=== PATIENT | female | born 1935 | race Caucasian/White ===

== ENCOUNTER 2017-04-27 12:06 | Inpatient (IN) | payer MEDICARE, OTHER ==
[~2017-04-27] VITALS: Ht 157.5 cm; Wt 62.6 kg
--- NOTE | 2017-04-27 12:09 | ERA ---
ER Documentation Chief Complaint Date/Time DATE: 04/27/17 TIME: 12:08 Chief Complaint Shortness of breath HPI The patient is a 81-year-old female, presenting to the ER because of low O2 saturation and high glucose from the [place] [facility]. She normally uses 2 L nasal cannula according to the church history professor. She is unable to provide history, the history is obtained from the church history professor in medical record. She has been on vancomycin IV and Zosyn IV since April 24, 2017 and was recently discharged from [facility]. She is a DO NOT RESUSCITATE Past medical history: Hypertension, dyslipidemia, history of breast cancer, history of CVA with right hemiparesis, seizure disorder, diabetes mellitus Past surgical history: Right breast and right hip ROS All systems reviewed and are negative except as per history of present illness. Medications Home Meds Reported Medications Clopidogrel Bisulfate (Clopidogrel) 75 Mg Tablet, 75 MG PO DAILY, #30 TAB 04/27/17 Exemestane* (Exemestane*) 25 Mg Tablet, 25 MG GTB DAILY, TAB 04/27/17 Levetiracetam* (Keppra*) 500 Mg/5 Ml Solution, 500 MG GTB BID, BOTTLE 04/27/17 Ondansetron Hcl* (Ondansetron Hcl*) 4 Mg Tablet, 4 MG PO Q12 Y for NAUSEA AND/ OR VOMITING, TAB 04/27/17 Atorvastatin* (Atorvastatin*) 40 Mg Tablet, 40 MG GTB QHS, #30 TAB 04/27/17 Cran/Vitc/Mannose/Inulin/Brom (Uti-Stat Liquid) 3,875 Mg/30 Ml Liquid, 30 ML GTB DAILY 04/27/17 Allergies Allergies: Coded Allergies: No Known Allergy (Unverified , 04/27/17) Physical Exam Vitals Vital Signs Date Time Temp Pulse Resp B/P Pulse Ox O2 Delivery O2 Flow Rate FiO2 04/27/17 12:35 Non Rebreather 15.0 04/27/17 12:35 Non Rebreather 15 04/27/17 12:22 99.8 115 24 174/97 100 Physical Exam Const: acute Respiratory distress. Head: Atraumatic. Eyes: Normal Conjunctiva. ENT: Normal External Ears, Nose and Mouth. Neck: Full range of motion. No meningismus. Resp: Clear to auscultation bilaterally.Tachypneic Cardio: Regular rate and rhythm.Tachycardic Abd: Soft, non distended, normal bowel sounds, non tender.G-tube Skin: No petechiae or rashes. Back: No midline or flank tenderness. Ext: No cyanosis, or edema. Neur: Unable to perform due to her condition Psych: Unable to perform due to her condition Result Diagram: 04/27/17 1230 04/27/17 1230 Results 24 hrs Laboratory Tests Test 04/27/17 12:09 04/27/17 12:17 04/27/17 12:30 04/27/17 12:43 Blood Gas Specimen Source Blood arterial Arterial Blood Date Drawn 04/27/2017 12:28:27 PM Arterial Blood pH (Temp corrected) 7.450 Arterial Blood pCO2 (Temp correct) 49.8mmhg Arterial Blood pO2 (Temp corrected) 164.5mmHG Arterial Blood HCO3 33.8mmol/L Arterial Blood Base Excess 8.4mmol/L Arterial Blood Oxygen Saturation 98.7mmHG Jef Test ACCEPTAB Arterial Blood Gas Puncture Site Right Radial Arterial Blood Carboxyhemoglobin 0.3% Arterial Blood Methemoglobin 0.1% Blood Gas A-a O2 Differential 498.7mmHg Oxyhemoglobin Percent 98.3% Total Hemoglobin 14.3g/dl Blood Gas Temperature 37.0C Blood Gas Modality MASK - NRB FiO2 100.0% Blood Gas Notified Whom [place] Blood Gas Notified Time 04/27/2017 12:32:43 PM Bedside Glucose 466mg/dL White Blood Count 15.510^3/ul Red Blood Count 4.5410^6/ul Hemoglobin 13.4g/dl Hematocrit 43.1% Mean Corpuscular Volume 94.9fl Mean Corpuscular Hemoglobin 29.5pg Mean Corpuscular Hemoglobin Concent 31.1g/dl Red Cell Distribution Width 14.3% Platelet Count 41245^3/UL Mean Platelet Volume 12.2fl Neutrophils % 81.9% Lymphocytes % 11.3% Monocytes % 5.5% Eosinophils % 0.3% Basophils % 0.5% Nucleated Red Blood Cells % 0.0/100WBC Neutrophils # 12.710^3/ul Lymphocytes # 1.810^3/ul Monocytes # 0.910^3/ul Eosinophils # 0.010^3/ul Basophils # 0.110^3/ul Nucleated Red Blood Cells # 0.010^3/ul Prothrombin Time 14.4Sec Prothrombin Time Ratio 1.1 INR International Normalized Ratio 1.12 Activated Partial Thromboplast Time 27.8Sec Sodium Level 159mmol/L Potassium Level 3.8mmol/L Chloride Level 118mmol/L Carbon Dioxide Level 35mmol/L Anion Gap 10 Blood Urea Nitrogen 48mg/dl Creatinine 1.02mg/dl Glucose Level 560mg/dl Lactic Acid Level 2.0mmol/L Calcium Level 9.8mg/dl Phosphorus Level 3.9mg/dl Magnesium Level 2.5mg/dl Total Bilirubin 0.5mg/dl Direct Bilirubin 0.00mg/dl Indirect Bilirubin 0.5mg/dl Aspartate Amino Transf (AST/SGOT) 28IU/L Alanine Aminotransferase (ALT/SGPT) 58IU/L Alkaline Phosphatase 132IU/L Troponin I 0.044ng/ml Total Protein 6.4g/dl Albumin 2.9g/dl Globulin 3.50g/dl Albumin/Globulin Ratio 0.82 Urine Color YELLOW Urine Clarity SLIGHTLY CLOUDY Urine pH 7.0 Urine Specific [place] 1.028 Urine Ketones NEGATIVEmg/dL Urine Nitrite NEGATIVEmg/dL Urine Bilirubin NEGATIVEmg/dL Urine Urobilinogen NEGATIVEmg/dL Urine Leukocyte Esterase 1+Merrick/ul Urine Microscopic RBC 4/HPF Urine Microscopic WBC 16/HPF Urine Hemoglobin NEGATIVEmg/dL Urine Glucose 3+mg/dL Urine Total Protein NEGATIVEmg/dl Test 04/27/17 12:56 Bedside Urine pH (LAB) 7.0 Bedside Urine Protein (LAB) Trace Bedside Urine Glucose (UA) 0.50% Bedside Urine Ketones (LAB) Negative Bedside Urine Blood 1+ Bedside Urine Nitrite (LAB) Negative Bedside Urine Leukocyte Esterase (L Trace Current Medications Medications (Trade) Dose Ordered Sig/Kilo Route PRN Reason Start Time Stop Time Status Last Admin Dose Admin Vancomycin HCl 250 ml @ 125 mls/hr ONCE IVPB 04/27/17 13:00 04/27/17 14:59 04/27/17 13:29 Meropenem/Sodium Chloride 50 ml @ 100 mls/hr ONCE STAT IVPB 04/27/17 12:44 04/27/17 13:13 DC 04/27/17 13:19 Sodium Chloride (NS) 2,170 ml @ 2,170 mls/hr BOLUS X1 ONCE IV 04/27/17 13:30 04/27/17 14:29 04/27/17 13:20 Insulin Human Lispro (Humalog) 16 unit ONCE STAT SC 04/27/17 13:13 04/27/17 13:17 DC 04/27/17 13:34 Procedures/MDM [place] [id number] Radiology Main Line: [phone] DIAGNOSTIC IMAGING REPORT Patient: MERARY HOYOS : 1935 Age: 81 Sex: F MR #: [id number] DOS: 04/27/17 1209 Ordering MD: MARLYS LU MD Location: E/R Room/Bed: PROCEDURE: XR Chest. CLINICAL INDICATION: Sepsis. TECHNIQUE: Single frontal view. COMPARISON: None. FINDINGS: There is mild atelectasis at the lung bases. There are low lung volumes. Heart is enlarged. Surgical clips are present in the right axilla and right upper quadrant of the abdomen. There is no pleural effusion. There is no pneumothorax. There is thoracic scoliosis convex right superiorly and convex left inferiorly. IMPRESSION: 1. Mild atelectasis at the lung bases. 2. Low lung volumes. 3. Cardiomegaly. 4. Prior right axillary and right upper quadrant abdomen surgery. 5. Thoracic scoliosis convex right superiorly and convex left inferiorly. RPTAT: QQ .Devante Newman MD, MD Date Time Electronically viewed and signed by .Devante Newman MD, MD on 04/27/2017 12:44 .R/ CC: MARLYS LU MD EKG: Read by emergency physician Rate/Rhythm: Sinus tachycardia 117 beats/min QRS, ST, T-waves: No ST elevation, no T inversion, LVH Impression: Abnormal EKG ABG on 100%, pH 7.45, PCO2 50, PO2 164 MEDICAL MAKING DECISION: The patient is a 81-year-old female, presenting with acute respiratory failure, acute severe sepsis, acute hypovolemic hyponatremic, acute diabetic hyperglycemia. She was treated with Still catheter, vancomycin IV, meropenem IV, normal saline 30 mL/kg IV for acute severe sepsis and Humalog 16 units subcutaneously for acute diabetic hyperglycemia with good response Admit MDM: Patient's infectious symptoms have not stabilized and the patient is at risk of rapid decompensation. The patient will be admitted for careful hydration, antibiotic therapy, and infectious source control. Severe Sepsis criteria: Infectious source: unknown End organ damage indicated by: Lactate > 2.0 mmol/L Sepsis Management: Time of recognition of severe sepsis/septic shock:13:00 Within 3 hours of recognition: Blood cultures x 2 before broad-spectrum antibiotics: Yes 30 ml/kg NS bolus completed Initial lactate 2 Repeat lactate pending Critical Care: Critical care time 35 minutes excluding billable procedure Emergent fluid management while maintaining close respiratory support. Provision of immediate and broad-spectrum antibiotic therapy. Simultaneous assessment for possible sources in order to direct targeted therapy. Consideration for invasive and chemical support to prevent cardiopulmonary collapse. Septic Shock Assessment: Any lactic acid > 4.0 no Persistent hypotension (SBP < 90 or 40 mmHg drop, MAP < 65) despite 30 mL/kg IV fluid bolusno Departure Diagnosis: Primary Impression: Acute respiratory failure Additional Impressions: Severe sepsis Dehydration with hypernatremia Diabetes mellitus with hyperglycemia Condition: Critical Comments TelI discussed the findings with the patient. I discussed the patient with The on-call hospitalist Dr. Isaac Ryan at 1:30 PM. who was made aware of the lab, the treatment, the patient condition. The patient is admitted to Telemetry MARLYS LU MD Apr 27, 2017 12:09
[2017-04-27 12:33] LABS: AADO2 Arterial 498.7 mmHg (7.0-24.0); Allen Test ACCEPTAB; Arterial Base Excess 8.4 mmol/L (-3.0-3); Arterial COHb 0.3 % (0.0-3.0); Arterial Fraction of Oxyhgb 98.3 % (93.0-99.0); Arterial HCO3 33.8 mmol/L (22.0-26.0); Arterial MetHb 0.1 % (0.0-1.5); Arterial Total Hemglobin 14.3 g/dl (12.0-18.0); MODE MASK - NRB
[2017-04-27 12:41] LABS: BASOPHIL # 0.1 10^3/ul (0.0-0.1); BASOPHILS % 0.5 % (0.0-2.0); EOSINOPHILS % 0.3 % (0.0-7.0); HEMATOCRIT 43.1 % (37.0-47.0); HEMOGLOBIN 13.4 g/dl (12.0-16.0); LYMPHOCYTES # 1.8 10^3/ul (0.8-2.9); LYMPHOCYTES % 11.3 % (15.0-51.0); MEAN CORPUSCULAR HEMOGLOBIN 29.5 pg (29.0-33.0); MEAN CORPUSCULAR HGB CONC 31.1 g/dl (32.0-37.0); MEAN CORPUSCULAR VOLUME 94.9 fl (82.0-101.0); MEAN PLATELET VOLUME 12.2 fl (7.4-10.4); MONOCYTE # 0.9 10^3/ul (0.3-0.9); MONOCYTES % 5.5 % (0.0-11.0); NEUTROPHIL # 12.7 10^3/ul (1.6-7.5); NEUTROPHILS % 81.9 % (39.0-77.0); PLATELET COUNT 292 10^3/UL (140-415); RED BLOOD COUNT 4.54 10^6/ul (4.20-5.40); RED CELL DISTRIBUTION WIDTH 14.3 % (11.5-14.5); WHITE BLOOD COUNT 15.5 10^3/ul (4.8-10.8)
[2017-04-27] MEDS ORDERED: MEROPENEM 500MG/50 ML (PMX) 50 ML IVPB STA (12:44)
--- NOTE | 2017-04-27 12:44 | RADRPT ---
PROCEDURE: XR Chest. CLINICAL INDICATION: Sepsis. TECHNIQUE: Single frontal view. COMPARISON: None. FINDINGS: There is mild atelectasis at the lung bases. There are low lung volumes. Heart is enlarged. Surgical clips are present in the right axilla and right upper quadrant of the ab domen. There is no pleural effusion. There is no pneumothorax. There is thoracic scoliosis convex right superiorly and convex left inferiorly. IMPRESSION: 1. Mild atelectasis at the lung bases. 2. Low lung volumes. 3. Cardiomegaly. 4. Prior right axillary and right upper quadrant abdomen surgery. 5. Thoracic scoliosis convex right superiorly and convex left inferiorly. RPTAT: QQ .Devante Newman MD, MD Date Time Electronically viewed and signed by .Devante Newman MD, on 04/27/2017 12:44 .R/
[2017-04-27 12:48] LABS: URINE BLOOD (Dip) POC 1+ (NEGATIVE)
[2017-04-27] MEDS ORDERED: CRAN3875 GTB (12:54)
[2017-04-27] MEDS ORDERED: ATOR40TA68 GTB (12:55)
[2017-04-27] MEDS ORDERED: ONDA4TAB95 PO (12:55)
[2017-04-27 12:57] LABS: INR 1.12; PROTIME 14.4 Sec (12.2-14.2); PT RATIO 1.1
[2017-04-27 12:58] LABS: PARTIAL THROMBOPLASTIN TIME 27.8 Sec (25.0-35.0)
[2017-04-27 12:59] LABS: ALBUMIN 2.9 g/dl (3.3-4.9); ALBUMIN/GLOBULIN RATIO 0.82; BILIRUBIN,INDIRECT 0.5 mg/dl (0-1.1); BILIRUBIN,TOTAL 0.5 mg/dl (0.2-1.3); CALCIUM 9.8 mg/dl (8.4-10.2); CREATININE 1.02 mg/dl (0.44-1.00); MAGNESIUM 2.5 mg/dl (1.7-2.5); PHOSPHORUS 3.9 mg/dl (2.5-4.9); POTASSIUM 3.8 mmol/L (3.5-5.1); TOTAL PROTEIN 6.4 g/dl (6.1-8.1)
[2017-04-27] MEDS ORDERED: LEVE500S8 GTB (12:59)
[2017-04-27] MEDS ORDERED: VANCOMYCIN 1 GM (PMX) 250 ML IVPB SCH (13:00)
[2017-04-27] MEDS ORDERED: EXEM25TA GTB (13:03)
[2017-04-27] MEDS ORDERED: CLOP75TA27 PO (13:04)
[2017-04-27 13:10] LABS: TROPONIN-I 0.044 ng/ml (0.00-0.12)
[2017-04-27] MEDS ORDERED: INSULIN LISPRO 100 UNIT/ML VIAL SC STA (13:13)
[2017-04-27 13:19] LABS: ADD UMIC YES; UR ASCORBIC ACID 20 mg/dL (NEGATIVE); UR BILIRUBIN (Dip) NEGATIVE (NEGATIVE); UR BLOOD (Dip) NEGATIVE (NEGATIVE); UR CLARITY SLIGHTLY CLOUDY (CLEAR); UR COLOR YELLOW (YELLOW); UR GLUCOSE (Dip) 3+ mg/dL (NEGATIVE); UR KETONES (Dip) NEGATIVE (NEGATIVE); UR LEUKOCYTE ESTERASE (Dip) 1+ Leu/ul (NEGATIVE); UR NITRITE (Dip) NEGATIVE (NEGATIVE); UR RBC 4 /HPF (0-5); UR SPECIFIC GRAVITY (Dip) 1.028 (1.003-1.030); UR TOTAL PROTEIN (Dip) NEGATIVE (NEGATIVE); UR UROBILINOGEN (Dip) NEGATIVE (NEGATIVE)
[2017-04-27] MEDS ORDERED: SOD CHLORIDE 0.9% 2,170 ML IV ONE (13:30)
[2017-04-27 14:00] VITALS: TEMP 99.8
[2017-04-27 15:19] VITALS: PULSE 96
[2017-04-27 16:00] VITALS: BP 159/83; PULSE 101; PULSE 88; RESP 24; Ht 157.5 cm; Wt 62.6 kg
[2017-04-27] MEDS ORDERED: VANCOMYCIN IV PER PHARMACY XX SCH (16:00)
[2017-04-27] MEDS ORDERED: morphine 2 MG INJ IV PRN (16:00)
[2017-04-27] MEDS ORDERED: NA PHOSPHATE/BIPHOS 133 ML ENEMA PR PRN (16:00)
[2017-04-27] MEDS ORDERED: DOCUSATE SODIUM 100 MG CAP PO PRN (16:00)
[2017-04-27] MEDS ORDERED: MAGNESIUM HYDROXIDE 30ML CUP PO PRN (16:00)
[2017-04-27] MEDS ORDERED: ALBUTEROL/IPRATROPIUM (NEB) 3 ML AMP HHN PRN (16:00)
[2017-04-27] MEDS ORDERED: HYDROCODONE/APAP (5/325) TAB PO PRN (16:00)
[2017-04-27] MEDS ORDERED: NITROGLYCERIN (SL) 0.4 MG TAB SL PRN (16:00)
[2017-04-27] MEDS ORDERED: ACETAMINOPHEN 325 MG TAB PO PRN (16:00)
[2017-04-27] MEDS ORDERED: ONDANSETRON 4 MG INJ IV PRN (16:00)
[2017-04-27] MEDS ORDERED: NACL 0.9% 3 ML SYG IV SCH (16:00)
[2017-04-27] MEDS ORDERED: DEXTROSE 50% 50 ML SYRINGE IV PRN ×2 (16:30)
[2017-04-27] MEDS ORDERED: GLUCOSE GEL 15 GRAM TUBE BUCCAL PRN (16:30)
[2017-04-27] MEDS ORDERED: GLUCAGON 1 MG INJ IM PRN (16:30)
[2017-04-27] MEDS ORDERED: GLUCOSE GEL 15 GRAM TUBE PO PRN ×2 (16:30)
[2017-04-27] MEDS ORDERED: PIPER-TAZO 3.375 GM IV (PMX) 100 ML IVPB SCH (17:00)
[2017-04-27 17:05] VITALS: PULSE 161
[2017-04-27 17:32] LABS: CK-MB 0.9 ng/ml (0.0-2.4); TROPONIN-I 0.041 ng/ml (0.00-0.12)
[2017-04-27] MEDS: SOD CHLORIDE 0.45% 1,000 ML IV SCH (17:51)
--- NOTE | 2017-04-27 17:52 | HP ---
DATE OF ADMISSION: 04/27/2017 CHIEF COMPLAINT: Shortness of breath. HISTORY OF PRESENT ILLNESS: A 81-year-old female with past medical history, based on conversation with family member of breast cancer in the past, cataract surgery, hypertension, high cholesterol, and large ischemic stroke on April 12, 2017 with right sided weakness symptoms, who presents from nursing facility because of hypoxia and shortness of breath. Again, most information obtained from discussion with the family member and ER documentation as the patient is unable to provide any HPI at this time. Apparently, the patient had suffered a large stroke on April 12 at [facility], which looks like a left MCA stroke, based on what the family member told me with right sided weakness symptoms. She was sent about a week ago to a rehab facility, [facility], and about 5 days ago became aphasic. Three days ago, patient also started having fevers and was treated for respiratory infection there at the snf with p.o. antibiotics per the family member. Apparently, there could be a partial lung collapse as well. The patient continued to have shortness of breath 2 days ago and the patient had worsening breathing this morning, so the snf decided to transfer the patient here to the emergency room in the hospital. When the patient arrived, she was found with a white blood cell count 15.5, temperature 99.8, and required oxygen supplementation. She does have some mild atelectasis at the lung bases, low lung volumes, but no signs of any lung collapse, and she was placed on non-rebreather in the emergency room, and also received broad-spectrum antibiotics. She was also found today with sugar elevated at 560, although anion gap was normal, and the sodium was found to be 159. PAST MEDICAL HISTORY: As stated above. ALLERGIES: NO KNOWN DRUG ALLERGIES. HOME MEDICATIONS: Plavix 75 mg daily, Atorvastatin 40 mg nightly, Keppra 500 mg b.i.d., Zofran 4 mg q.12 hours p.r.n., cranberry and vitamin C daily, Exemestane 25 mg daily. PAST SURGICAL HISTORY: She had a hip replacement in the past, cataract surgery in the past, and lymph node removal from the right axilla region for breast cancer in the past. FAMILY HISTORY: Noncontributory. SOCIAL HISTORY: Unknown. PHYSICAL EXAMINATION: VITAL SIGNS: Today vital signs, T-max 99.8, pulse 115, respirations 24, blood pressure 174/97, sating 100 percent on nonrebreather. GENERAL: Patient lying in bed, opens eyes, on non-rebreather, using muscles. Pupils equal, round, react to light. Extraocular muscles intact. NECK: Supple. LUNGS: Slightly distant breath sounds bilaterally. CARDIOVASCULAR: S1, S2 heard. Tachycardic heart rate. ABDOMEN: Soft, nontender, nondistended. Normal bowel sounds. No rebound or guarding. MUSCULOSKELETAL: lower extremity bilaterally. NEUROLOGIC: Unable to perform due to the patient's lethargy. LABORATORY DATA: WBC 15.5, hemoglobin 13.4, hematocrit 43.1, platelets 292. Sodium 159, potassium 3.8, chloride 118, CO2 35, BUN 48, creatinine 1.02, glucose 560. We mentioned chest x-ray results. 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 1. Shortness of breath, respiratory distress. Admit patient to telemetry floor, put on oxygen supplementation. Will consider putting her on broad spectrum antibiotics as well to rule out any source of upper respiratory infection, given her leukocytosis and elevated temperature. Tylenol p.r.n. pain or fever. Check A1c, lipid panel, and TSH. 2. Hypernatremia. For now keep, continue half normal saline, monitor sodium levels. Very carefully. 3. Hyperglycemia. Sugars are down to 344 range. Again, there is no elevated anion gap, lactic acid was normal as well. For now, continue subcu insulin, monitor, check A1c, monitor sugar results, again IV fluids as well. 4. Hypertension. Again, continue to monitor for now. 5. High cholesterol. Follow up lipid panel. 6. History of breast cancer. Continue to monitor for now. 7. Again, patient is a do not resuscitate. Dictated By: Loc Norman MD /[email or web address]/pavan /Document#: [id number]
[2017-04-27] MEDS: VANCOMYCIN 1.75 GM in NS 500 ML IVPB SCH ×2 (18:00→18:30)
[2017-04-27] MEDS: INSULIN ASPART [NOVOLOG] 3 ML PEN SC SCH ×2 (18:26→21:51)
[2017-04-27 20:00] VITALS: BP 168/92; RESP 20
[2017-04-27 20:05] VITALS: PULSE 95
[2017-04-27] MEDS: LEVETIRACETAM (100 MG/ML) 5ML CUP GTB SCH (21:43)
[2017-04-27] MEDS: FAMOTIDINE 20 MG INJ IV SCH (21:44)
[2017-04-27] MEDS: HEPARIN 5,000 UNIT/0.5 ML VIAL SC SCH (21:47)
[2017-04-27 23:01] LABS: CK-MB 1.15 ng/ml (0.0-2.4); TROPONIN-I 0.039 ng/ml (0.00-0.12)
[2017-04-27] MEDS: LORAZEPAM 2 MG INJ IV PRN (23:45)
[2017-04-27] MEDS: PIPERACILLIN/TAZO 3.375 GM in DEXTROSE 5% 100 ML IVPB SCH (23:52)
[2017-04-28] VITALS (13 sets, daily range): BP systolic 134–172; BP diastolic 66–86; PULSE 84–110; RESP 20
[2017-04-28] MEDS: VANCOMYCIN 750 MG in DEXTROSE 5% 150 ML IVPB SCH (01:18)
[2017-04-28] MEDS: INSULIN ASPART [NOVOLOG] 3 ML PEN SC SCH ×6 (01:27→21:16)
[2017-04-28] MEDS: ACCU-CHEK XX SCH (02:00)
[2017-04-28] MEDS: SOD CHLORIDE 0.45% 1,000 ML IV SCH ×2 (05:17→14:09)
[2017-04-28] MEDS: PIPERACILLIN/TAZO 3.375 GM in DEXTROSE 5% 100 ML IVPB SCH ×3 (05:47→17:34)
[2017-04-28 07:29] LABS: ABNORMAL IP MESSAGE 1; BASOPHIL # 0.1 10^3/ul (0.0-0.1); BASOPHILS % 0.5 % (0.0-2.0); EOSINOPHILS # 0.1 10^3/ul (0.0-0.5); EOSINOPHILS % 0.7 % (0.0-7.0); HEMATOCRIT 41.9 % (37.0-47.0); LYMPHOCYTES # 2.1 10^3/ul (0.8-2.9); MEAN CORPUSCULAR HEMOGLOBIN 28.5 pg (29.0-33.0); MEAN CORPUSCULAR HGB CONC 28.6 g/dl (32.0-37.0); MEAN CORPUSCULAR VOLUME 99.5 fl (82.0-101.0); MEAN PLATELET VOLUME 12.2 fl (7.4-10.4); MONOCYTE # 0.8 10^3/ul (0.3-0.9); MONOCYTES % 5.3 % (0.0-11.0); NEUTROPHIL # 11.8 10^3/ul (1.6-7.5); PLATELET COUNT 235 10^3/UL (140-415); RED BLOOD COUNT 4.21 10^6/ul (4.20-5.40); RED CELL DISTRIBUTION WIDTH 14.6 % (11.5-14.5); WHITE BLOOD COUNT 14.9 10^3/ul (4.8-10.8)
[2017-04-28 07:45] LABS: POSITIVE DIFF @See below
[2017-04-28 07:49] LABS: CALCIUM 8.7 mg/dl (8.4-10.2); CHOL/HDL RATIO 5.3 RATIO; CREATININE 0.96 mg/dl (0.44-1.00); MAGNESIUM 2.3 mg/dl (1.7-2.5); PHOSPHORUS 3.6 mg/dl (2.5-4.9); POTASSIUM 3.6 mmol/L (3.5-5.1)
[2017-04-28 08:17] LABS: THYROID STIMULATING HORMONE 0.615 MIU/L (0.465-4.680)
[2017-04-28] MEDS ORDERED: NON-FORMULARY/PATIENT OWN MED (Cran/Vitc/Mannose/Inulin/Brom (Uti-Stat Liquid) 30 ML) GTB SCH (09:00)
[2017-04-28] MEDS: LEVETIRACETAM (100 MG/ML) 5ML CUP GTB SCH ×2 (09:06→21:16)
[2017-04-28] MEDS: FAMOTIDINE 20 MG INJ IV SCH ×2 (09:06→21:16)
[2017-04-28] MEDS: CLOPIDOGREL 75 MG TAB PO SCH (09:06)
[2017-04-28] MEDS: EXEMESTANE 25 MG TAB GTB SCH (09:10)
[2017-04-28] MEDS: HEPARIN 5,000 UNIT/0.5 ML VIAL SC SCH ×2 (09:10→21:16)
--- NOTE | 2017-04-28 11:44 | PN ---
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 1. Shortness of breath/respiratory distress -still requiring nonrebreather, chest x-ray shows possible upper respiratory infection -continue on oxygen supplementation. - broad spectrum antibiotics as well given her leukocytosis and elevated temperature. -Tylenol p.r.n. pain or fever. 2. Hypernatremia - still elevated (159 -> 160) - For now keep, continue half normal saline, monitor sodium levels -We will add free water through G-tube as well. 3. Hyperglycemia. Sugars are down to 200-260. Again, there is no elevated anion gap, lactic acid was normal as well. A1c = 8.4 -continue subcu insulin, add Lantus 4. Hypertension. Again, continue to monitor for now. 5. High cholesterol. Follow up lipid panel. 6. History of breast cancer. Continue to monitor for now. Again, patient is a do not resuscitate. Problems: Subjective 24 Hr Interval Summary Free Text/Dictation Patient still on nonrebreather, somewhat lethargic, sugars have improved overall. No fevers overnight. Exam/Review of Systems Vital Signs Vitals Vital Signs Date Time Temp Pulse Resp B/P Pulse Ox O2 Delivery O2 Flow Rate FiO2 04/28/17 08:00 107 04/28/17 07:27 98.5 20 134/66 99 04/28/17 05:44 15.0 04/27/17 20:00 Non Rebreather 04/27/17 18:40 100 Intake and Output 04/27/17 04/27/17 04/28/17 15:00 23:00 07:00 Intake Total 85 ml Output Total 400 ml 650 ml Balance -315 ml -650 ml Exam GENERAL: Patient lying in bed, opens eyes, on non-rebreather, HEENT: Pupils equal, round, react to light, Extraocular muscles intact. NECK: Supple. LUNGS: Slightly distant breath sounds bilaterally. CARDIOVASCULAR: S1, S2 heard. Tachycardic heart rate. ABDOMEN: Soft, nontender, nondistended. Normal bowel sounds. No rebound or guarding. MUSCULOSKELETAL: no lower extremity bilaterally. NEUROLOGIC: Unable to perform due to the patient's lethargy. Results Result Diagram: 04/28/17 0624 04/28/17 1050 Results 24 hrs Laboratory Tests Test 04/27/17 12:09 04/27/17 12:17 04/27/17 12:30 04/27/17 12:43 Blood Gas Specimen Source Blood arterial Arterial Blood Date Drawn 04/27/2017 12:28:27 PM Arterial Blood pH (Temp corrected) 7.450 Arterial Blood pCO2 (Temp correct) 49.8 H Arterial Blood pO2 (Temp corrected) 164.5 H Arterial Blood HCO3 33.8 H Arterial Blood Base Excess 8.4 H Arterial Blood Oxygen Saturation 98.7 Jef Test ACCEPTAB Arterial Blood Gas Puncture Site Right Radial Arterial Blood Carboxyhemoglobin 0.3 Arterial Blood Methemoglobin 0.1 Blood Gas A-a O2 Differential 498.7 H Oxyhemoglobin Percent 98.3 Total Hemoglobin 14.3 Blood Gas Temperature 37.0 Blood Gas Modality MASK - NRB FiO2 100.0 Blood Gas Notified Whom KS Blood Gas Notified Time 04/27/2017 12:32:43 PM Bedside Glucose 466 *H White Blood Count 15.5 H Red Blood Count 4.54 Hemoglobin 13.4 Hematocrit 43.1 Mean Corpuscular Volume 94.9 Mean Corpuscular Hemoglobin 29.5 Mean Corpuscular Hemoglobin Concent 31.1 L Red Cell Distribution Width 14.3 Platelet Count 292 Mean Platelet Volume 12.2 H Neutrophils % 81.9 H Lymphocytes % 11.3 L Monocytes % 5.5 Eosinophils % 0.3 Basophils % 0.5 Nucleated Red Blood Cells % 0.0 Neutrophils # 12.7 H Lymphocytes # 1.8 Monocytes # 0.9 Eosinophils # 0.0 Basophils # 0.1 Nucleated Red Blood Cells # 0.0 Prothrombin Time 14.4 H Prothrombin Time Ratio 1.1 INR International Normalized Ratio 1.12 Activated Partial Thromboplast Time 27.8 Sodium Level 159 H Potassium Level 3.8 Chloride Level 118 H Carbon Dioxide Level 35 H Anion Gap 10 Blood Urea Nitrogen 48 H Creatinine 1.02 H Glucose Level 560 *H Lactic Acid Level 2.0 Calcium Level 9.8 Phosphorus Level 3.9 Magnesium Level 2.5 Total Bilirubin 0.5 Direct Bilirubin 0.00 Indirect Bilirubin 0.5 Aspartate Amino Transf (AST/SGOT) 28 Alanine Aminotransferase (ALT/SGPT) 58 Alkaline Phosphatase 132 H Troponin I 0.044 Total Protein 6.4 Albumin 2.9 L Globulin 3.50 H Albumin/Globulin Ratio 0.82 Urine Color YELLOW Urine Clarity SLIGHTLY CLOUDY A Urine pH 7.0 Urine Specific [place] 1.028 Urine Ketones NEGATIVE Urine Nitrite NEGATIVE Urine Bilirubin NEGATIVE Urine Urobilinogen NEGATIVE Urine Leukocyte Esterase 1+ H Urine Microscopic RBC 4 Urine Microscopic WBC 16 H Urine Hemoglobin NEGATIVE Urine Glucose 3+ H Urine Total Protein NEGATIVE Test 04/27/17 12:56 04/27/17 13:33 04/27/17 14:00 04/27/17 14:38 Bedside Urine pH (LAB) 7.0 Bedside Urine Protein (LAB) Trace H Bedside Urine Glucose (UA) 0.50% H Bedside Urine Ketones (LAB) Negative Bedside Urine Blood 1+ H Bedside Urine Nitrite (LAB) Negative Bedside Urine Leukocyte Esterase (L Trace H Bedside Glucose 404 *H 344 H Lactic Acid Level 1.0 Test 04/27/17 14:52 04/27/17 16:23 04/27/17 16:30 04/27/17 18:13 Lactic Acid Level 1.8 Free Thyroxine 0.80 L Creatine Kinase 38 Creatine Kinase Index 2.4 Creatinine Kinase MB (Mass) 0.90 Troponin I 0.041 Bedside Glucose 212 Test 04/27/17 21:42 04/27/17 22:12 04/28/17 01:16 04/28/17 05:43 Bedside Glucose 176 217 225 H Creatine Kinase 45 Creatine Kinase Index 2.6 Creatinine Kinase MB (Mass) 1.15 Troponin I 0.039 Test 04/28/17 06:24 04/28/17 08:15 04/28/17 10:50 White Blood Count 14.9 H Red Blood Count 4.21 Hemoglobin 12.0 Hematocrit 41.9 Mean Corpuscular Volume 99.5 Mean Corpuscular Hemoglobin 28.5 L Mean Corpuscular Hemoglobin Concent 28.6 L Red Cell Distribution Width 14.6 H Platelet Count 235 Mean Platelet Volume 12.2 H Neutrophils % 79.0 H Lymphocytes % 14.0 L Monocytes % 5.3 Eosinophils % 0.7 Basophils % 0.5 Nucleated Red Blood Cells % 0.0 Neutrophils # 11.8 H Lymphocytes # 2.1 Monocytes # 0.8 Eosinophils # 0.1 Basophils # 0.1 Nucleated Red Blood Cells # 0.0 Hemoglobin A1c 8.4 H Bedside Glucose 246 H Sodium Level 160 H Potassium Level 3.6 Chloride Level 121 H Carbon Dioxide Level 36 H Anion Gap 7 L Blood Urea Nitrogen 36 #H Creatinine 0.96 Glucose Level 266 #H Calcium Level 8.7 Phosphorus Level 3.6 Magnesium Level 2.3 Triglycerides Level 183 H Cholesterol Level 118 LDL Cholesterol, Calculated 59 HDL Cholesterol 22 L Cholesterol/HDL Ratio 5.3 Thyroid Stimulating Hormone (TSH) 0.615 Medications Medications Current Medications Ondansetron HCl (Zofran Inj) 4 mg Q6H PRN IV NAUSEA AND/OR VOMITING; Start at 16:00 Acetaminophen (Tylenol Tab) 650 mg Q6H PRN PO PAIN LEVEL 1-3 OR FEVER; Start at 16:00 Acetaminophen/ Hydrocodone Bitart ([place] (5/325)) 1 tab Q6H PRN PO MODERATE PAIN LEVEL 4-6; Start 04/27/17 at 16:00 Morphine Sulfate (morphine) 2 mg Q4H PRN IV SEVERE PAIN LEVEL 7-10; Start 04/27 at 16:00 Docusate Sodium (Colace) 100 mg Q12H PRN PO CONSTIPATION; Start 04/27/17 at 16: 00 Magnesium Hydroxide (Milk Of Mag) 30 ml DAILY PRN PO CONSTIPATION; Start at 16:00 Sodium Biphosphate/ Sodium Phosphate (Fleet Enema) 133 ml DAILY PRN [place] CONSTIPATION; Start 04/27/17 at 16:00 Famotidine (Pepcid Iv) 20 mg Q12 IV Last administered on 04/28/17 09:06; Admin Dose 20 MG; Start 04/27/17 at 21:00 Heparin Sodium (Porcine) 5000 unit 5,000 unit Q12 SC Last administered on 09:10; Admin Dose 5,000 UNIT; Start 04/27/17 at 21:00 Sodium Chloride (1/2 NS) 1,000 ml @ 75 mls/hr [id number] IV Last administered on 04/27/17 17:51; Admin Dose 75 MLS/HR; Start 04/27/17 at 15:57 Lorazepam (Ativan) 0.5 mg Q6H PRN IV ANXIETY Last administered on 04/27/17 23: 45; Admin Dose 0.5 MG; Start 04/27/17 at 16:00 Vancomycin HCl (Vanco Iv Per Pharmacy) VANCOMYCIN PER PHARMACY NOTE XX ; Start 04/27/17 at 16:00 Nitroglycerin (Nitroglycerin (Sl Tab) 0.4 Mg) 1 tab Q5M PRN SL ANGINA; Start at 16:00 Diagnostic Test (Pha) (Accu-Chek) 1 ea 02 XX ; Start 04/28/17 at 02:00 Insulin Aspart (Novolog Insulin Pen) NOVOLOG *MODERATE* ALGORI... Q4 SC Last administered on 04/28/17 09:09; Admin Dose 6 UNIT; Start 04/27/17 at 17:00 Clopidogrel Bisulfate (plaVIX) 75 mg DAILY PO Last administered on 04/28/17 09 :06; Admin Dose 75 MG; Start 04/28/17 at 09:00 Exemestane (Aromasin) 25 mg DAILY GTB Last administered on 04/28/17 09:10; Admin Dose 25 MG; Start 04/28/17 at 09:00 Levetiracetam (Keppra Liquid) 500 mg BID GTB Last administered on 04/28/17 09: 06; Admin Dose 500 MG; Start 04/27/17 at 21:00 Miscellaneous Information 1 ea NOTE XX ; Start 04/27/17 at 16:30 Glucose (Glutose) 15 gm Q15M PRN PO DECREASED GLUCOSE; Start 04/27/17 at 16:30 Glucose (Glutose) 22.5 gm Q15M PRN PO DECREASED GLUCOSE; Start 04/27/17 at 16: 30 Dextrose (D50w Syringe) 25 ml Q15M PRN IV DECREASED GLUCOSE; Start 04/27/17 at 16:30 Dextrose (D50w Syringe) 50 ml Q15M PRN IV DECREASED GLUCOSE; Start 04/27/17 at 16:30 Glucagon (Glucagen) 1 mg Q15M PRN IM DECREASED GLUCOSE; Start 04/27/17 at 16:30 Glucose 15 gm 15 gm Q15M PRN BUCCAL DECREASED GLUCOSE; Start 04/27/17 at 16:30 Vancomycin HCl 750 mg/Dextrose/ Water 150 ml @ 75 mls/hr Q24H IVPB Last administered on 04/28/17t 01:18; Admin Dose 75 MLS/HR; Start 04/28/17 at 01:00 Piperacillin Sod/ Tazobactam Sod/ Dextrose (Zosyn/D5W) 100 ml @ 200 mls/hr Q6 IVPB Last administered on 04/28/17t 11:37; Admin Dose 200 MLS/HR; Start at 00:00 Insulin Glargine (Lantus) 20 unit DAILY@20 SC ; Start 04/28/17 at 20:00 FLORI DIAL Apr 28, 2017 11:44
--- NOTE | 2017-04-28 13:12 | CONS ---
DATE OF ADMISSION: 04/27/2017 DATE OF CONSULTATION: 04/28/2017 REASON FOR CONSULTATION: Antibiotic management. HISTORY OF PRESENT ILLNESS: Janneth Blake is a 81-year-old female, who comes in with shortness of breath. Her past problems include. 1. History of breast cancer in the past. 2. History of cataract surgery. 3. Hypertension. 4. Hypercholesterolemia. 5. Large ischemic stroke, April 12, with right-sided weakness. [facility] with hypoxemia and shortness of breath. Patient suffered a large stroke on April 12, admission to [facility], a left MCA stroke with right- sided weakness. She was sent to a rehab facility 1 week ago. About 5 days ago, she became aphasic. Three days ago, she started to have fever. She had shortness of breath, worsening breathing this morning, so [facility] decided to transfer the patient to the emergency room. On admission to the ER, her white count was 15.5, H and H of 13.4 and 43.1, platelet count 292,000. BUN and creatinine were 48/1.02. Glucose, random, was 560. She has mild atelectasis at the lung bases. On chest x-ray, low lung volumes, no sign of lung collapse, and she was placed on a non- rebreather in the emergency room and placed on broad-spectrum antibiotics. Her sodium was as noted, 159, CO2 of 35, BUN and creatinine 48 and 1.02, and as noted, white count was 15.5. PAST MEDICAL HISTORY: As outlined. Operations: None FAMILY HISTORY: Noncontributory. SOCIAL HISTORY: She does not smoke, drink, or abuse drugs. ALLERGIES: NOTED TO PENICILLIN AND SULFA . MEDICATION: Per chart review. REVIEW OF SYSTEMS: As per HPI. PHYSICAL EXAMINATION: GENERAL: Patient is an elderly-appearing female, who is awake, noncommunicative, in no acute distress. VITAL SIGNS: Stable. She is afebrile. Her T-max was 99.8. SKIN: Without generalized rash. HEENT: Within normal limits. NECK: Supple. LYMPH NODES: None palpable. CHEST: Decreased breath sounds at the bases. HEART: Without murmur or gallop. ABDOMEN: Soft. Nontender. Without organo-splenomegaly or masses. Patient has a G-tube in place. EXTREMITIES: Without cyanosis, clubbing, or edema. RECTAL/GENERAL: Patient is a Still catheter. NEUROLOGICAL: Left hemispheric stroke with right-sided weakness. IMPRESSION AND PLAN: Source of fever is unclear. She may have a urinary tract infection. Urine is no growth after 24 hours. She is on vancomycin and Zosyn to cover whatever might be the etiology. Her urine showed 1+ leukocyte esterase and 16 white cells per high-power field. I will dictate my findings to the hospitalists. Will await the cultures and observe her in the hospital. Dictated By: Filipe Solitario MD JD/[email or web address] /Document#: [id number]
[2017-04-28] MEDS: DEXTROSE 5% 1,000 ML IV SCH (15:16)
--- NOTE | 2017-04-28 19:38 | CONS ---
Date/Time of Note Date/Time of Note DATE: 04/28/17 TIME: 19:34 Assessment/Plan Assessment/Plan Additional Assessment/Plan 81 yo Female 1) Hypernatremia 2) Von, Pre-Renal 3) Recent large left sided stroke 4) DNR 5) Hyperglycemia 6) HTN, Chronic Increase Free H20 through Gtube Cont D5 W at this time Repeat labs in am Cont to monitor Is and Os, UO, Electrolytes and renal function Cr already imroved. Will cont to follow closely. Consultation Date/Type/Reason Admit Date/Time Apr 27, 2017 at 13:31 Date of Consultation: Apr 28, 2017 Type of Consultation: Renal Reason for Consultation VON, Hypernatremia Referring Provider: FLORI DIAL Constitutional: requiring O2 Social History Smoking Status: Never smoker Exam/Review of Systems Vital Signs Vitals Vital Signs Date Time Temp Pulse Resp B/P Pulse Ox O2 Delivery O2 Flow Rate FiO2 04/28/17 16:00 84 04/28/17 15:27 98.3 20 142/70 98 04/28/17 11:30 15.0 04/28/17 08:00 Non Rebreather 04/27/17 18:40 100 Intake and Output 04/27/17 04/27/17 04/28/17 15:00 23:00 07:00 Intake Total 85 ml Output Total 400 ml 650 ml Balance -315 ml -650 ml Exam Constitutional: alert, other, No distress ENMT: No mucosa pink and moist Neck: No jvd Respiratory: diminished breath sounds Cardiovascular: No edema Gastrointestinal: soft, No rebound or guarding Extremities: No edema Neurological: lethargic, No nl mental status, No nl speech Skin: nl turgor, No diaphoresis Results Result Diagram: 04/28/17 0624 04/28/17 1050 Results 24 hrs Laboratory Tests Test 04/27/17 21:42 04/27/17 22:12 04/28/17 01:16 04/28/17 05:43 Bedside Glucose 176 217 225 H Creatine Kinase 45 Creatine Kinase Index 2.6 Creatinine Kinase MB (Mass) 1.15 Troponin I 0.039 Test 04/28/17 06:24 04/28/17 08:15 04/28/17 10:50 04/28/17 11:35 White Blood Count 14.9 H Red Blood Count 4.21 Hemoglobin 12.0 Hematocrit 41.9 Mean Corpuscular Volume 99.5 Mean Corpuscular Hemoglobin 28.5 L Mean Corpuscular Hemoglobin Concent 28.6 L Red Cell Distribution Width 14.6 H Platelet Count 235 Mean Platelet Volume 12.2 H Neutrophils % 79.0 H Lymphocytes % 14.0 L Monocytes % 5.3 Eosinophils % 0.7 Basophils % 0.5 Nucleated Red Blood Cells % 0.0 Neutrophils # 11.8 H Lymphocytes # 2.1 Monocytes # 0.8 Eosinophils # 0.1 Basophils # 0.1 Nucleated Red Blood Cells # 0.0 Hemoglobin A1c 8.4 H Bedside Glucose 246 H 195 Sodium Level 160 H Potassium Level 3.6 Chloride Level 121 H Carbon Dioxide Level 36 H Anion Gap 7 L Blood Urea Nitrogen 36 #H Creatinine 0.96 Glucose Level 266 #H Calcium Level 8.7 Phosphorus Level 3.6 Magnesium Level 2.3 Triglycerides Level 183 H Cholesterol Level 118 LDL Cholesterol, Calculated 59 HDL Cholesterol 22 L Cholesterol/HDL Ratio 5.3 Thyroid Stimulating Hormone (TSH) 0.615 Test 04/28/17 17:30 Bedside Glucose 192 Imaging Free Text/Dictation CLINICAL INDICATION: Sepsis. TECHNIQUE: Single frontal view. COMPARISON: None. FINDINGS: There is mild atelectasis at the lung bases. There are low lung volumes. Heart is enlarged. Surgical clips are present in the right axilla and right upper quadrant of the abdomen. There is no pleural effusion. There is no pneumothorax. There is thoracic scoliosis convex right superiorly and convex left inferiorly. IMPRESSION: 1. Mild atelectasis at the lung bases. 2. Low lung volumes. 3. Cardiomegaly. 4. Prior right axillary and right upper quadrant abdomen surgery. 5. Thoracic scoliosis convex right superiorly and convex left inferiorly. RPTAT: QQ .Devante Newman MD, MD Date Time Electronically viewed and signed by .Devante Newman MD, MD on 04/27/2017 12:44 Medications Medications Current Medications Ondansetron HCl (Zofran Inj) 4 mg Q6H PRN IV NAUSEA AND/OR VOMITING; Start at 16:00 Acetaminophen (Tylenol Tab) 650 mg Q6H PRN PO PAIN LEVEL 1-3 OR FEVER; Start at 16:00 Acetaminophen/ Hydrocodone Bitart ([place] (5/325)) 1 tab Q6H PRN PO MODERATE PAIN LEVEL 4-6; Start 04/27/17 at 16:00 Morphine Sulfate (morphine) 2 mg Q4H PRN IV SEVERE PAIN LEVEL 7-10; Start 04/27 at 16:00 Docusate Sodium (Colace) 100 mg Q12H PRN PO CONSTIPATION; Start 04/27/17 at 16: 00 Magnesium Hydroxide (Milk Of Mag) 30 ml DAILY PRN PO CONSTIPATION; Start at 16:00 Famotidine (Pepcid Iv) 20 mg Q12 IV Last administered on 04/28/17 09:06; Admin Dose 20 MG; Start 04/27/17 at 21:00 Heparin Sodium (Porcine) (Heparin (5000 Units/0.5 ml)) 5,000 unit Q12 SC Last administered on 04/28/17 09:10; Admin Dose 5,000 UNIT; Start 04/27/17 at 21:00 Lorazepam (Ativan) 0.5 mg Q6H PRN IV ANXIETY Last administered on 04/27/17 23: 45; Admin Dose 0.5 MG; Start 04/27/17 at 16:00 Vancomycin HCl (Vanco Iv Per Pharmacy) VANCOMYCIN PER PHARMACY NOTE XX ; Start 04/27/17 at 16:00 Nitroglycerin (Nitroglycerin (Sl Tab) 0.4 Mg) 1 tab Q5M PRN SL ANGINA; Start at 16:00 Diagnostic Test (Pha) (Accu-Chek) 1 ea 02 XX ; Start 04/28/17 at 02:00 Insulin Aspart (Novolog Insulin Pen) NOVOLOG *MODERATE* ALGORI... Q4 SC Last administered on 04/28/17 17:42; Admin Dose 4 UNIT; Start 04/27/17 at 17:00 Clopidogrel Bisulfate (plaVIX) 75 mg DAILY PO Last administered on 04/28/17 09 :06; Admin Dose 75 MG; Start 04/28/17 at 09:00 Exemestane (Aromasin) 25 mg DAILY GTB Last administered on 04/28/17 09:10; Admin Dose 25 MG; Start 04/28/17 at 09:00 Levetiracetam (Keppra Liquid) 500 mg BID GTB Last administered on 04/28/17 09: 06; Admin Dose 500 MG; Start 04/27/17 at 21:00 Miscellaneous Information 1 ea NOTE XX ; Start 04/27/17 at 16:30 Glucose (Glutose) 15 gm Q15M PRN PO DECREASED GLUCOSE; Start 04/27/17 at 16:30 Glucose (Glutose) 22.5 gm Q15M PRN PO DECREASED GLUCOSE; Start 04/27/17 at 16: 30 Dextrose (D50w Syringe) 25 ml Q15M PRN IV DECREASED GLUCOSE; Start 04/27/17 at 16:30 Dextrose (D50w Syringe) 50 ml Q15M PRN IV DECREASED GLUCOSE; Start 04/27/17 at 16:30 Glucagon (Glucagen) 1 mg Q15M PRN IM DECREASED GLUCOSE; Start 04/27/17 at 16:30 Glucose 15 gm 15 gm Q15M PRN BUCCAL DECREASED GLUCOSE; Start 04/27/17 at 16:30 Vancomycin HCl 750 mg/Dextrose/ Water 150 ml @ 75 mls/hr Q24H IVPB Last administered on 04/28/17 01:18; Admin Dose 75 MLS/HR; Start 04/28/17 at 01:00 Piperacillin Sod/ Tazobactam Sod/ Dextrose (Zosyn/D5W) 100 ml @ 200 mls/hr Q6 IVPB Last administered on 04/28/17 17:34; Admin Dose 200 MLS/HR; Start at 00:00 Insulin Glargine 20 unit 20 unit DAILY@20 SC ; Start 04/28/17 at 20:00 Dextrose (D5W) 1,000 ml @ 75 mls/hr [id number] IV Last administered on 04/28/17 15:16; Admin Dose 75 MLS/HR; Start 04/28/17 at 15:00 PARAG RESENDIZ MD Apr 28, 2017 19:38
[2017-04-28] MEDS ORDERED: INSULIN GLARGINE [LANtus] 3 ML PEN SC SCH (20:00)
[2017-04-29] VITALS (13 sets, daily range): BP systolic 121–175; BP diastolic 56–82; PULSE 70–88; RESP 18–20
[2017-04-29] MEDS: PIPERACILLIN/TAZO 3.375 GM in DEXTROSE 5% 100 ML IVPB SCH ×4 (00:25→17:28)
[2017-04-29] MEDS: INSULIN ASPART [NOVOLOG] 3 ML PEN SC SCH ×8 (00:35→20:38)
[2017-04-29] MEDS: VANCOMYCIN 750 MG in DEXTROSE 5% 150 ML IVPB SCH (01:26)
[2017-04-29] MEDS: ACCU-CHEK XX SCH (02:00)
[2017-04-29] MEDS: DEXTROSE 5% 1,000 ML IV SCH ×2 (06:09→17:32)
[2017-04-29 07:34] LABS: BASOPHIL # 0.1 10^3/ul (0.0-0.1); BASOPHILS % 0.5 % (0.0-2.0); EOSINOPHILS # 0.3 10^3/ul (0.0-0.5); EOSINOPHILS % 2.4 % (0.0-7.0); HEMATOCRIT 38.7 % (37.0-47.0); HEMOGLOBIN 11.6 g/dl (12.0-16.0); LYMPHOCYTES # 1.9 10^3/ul (0.8-2.9); MEAN CORPUSCULAR HEMOGLOBIN 29.3 pg (29.0-33.0); MEAN CORPUSCULAR VOLUME 97.7 fl (82.0-101.0); MEAN PLATELET VOLUME 12.3 fl (7.4-10.4); MONOCYTE # 0.6 10^3/ul (0.3-0.9); MONOCYTES % 4.9 % (0.0-11.0); NEUTROPHIL # 9.8 10^3/ul (1.6-7.5); NEUTROPHILS % 76.7 % (39.0-77.0); PLATELET COUNT 205 10^3/UL (140-415); RED BLOOD COUNT 3.96 10^6/ul (4.20-5.40); RED CELL DISTRIBUTION WIDTH 13.3 % (11.5-14.5); WHITE BLOOD COUNT 12.8 10^3/ul (4.8-10.8)
[2017-04-29 07:44] LABS: CALCIUM 8.1 mg/dl (8.4-10.2); CREATININE 0.72 mg/dl (0.44-1.00); POTASSIUM 3.3 mmol/L (3.5-5.1)
[2017-04-29] MEDS: EXEMESTANE 25 MG TAB GTB SCH (08:47)
[2017-04-29] MEDS: HEPARIN 5,000 UNIT/0.5 ML VIAL SC SCH ×2 (08:48→20:39)
[2017-04-29] MEDS: FAMOTIDINE 20 MG INJ IV SCH ×2 (08:49→20:29)
[2017-04-29] MEDS: CLOPIDOGREL 75 MG TAB PO SCH (08:49)
[2017-04-29] MEDS: LEVETIRACETAM (100 MG/ML) 5ML CUP GTB SCH ×2 (08:49→20:29)
[2017-04-29] MEDS: LORAZEPAM 2 MG INJ IV PRN ×2 (10:57→20:29)
--- NOTE | 2017-04-29 11:56 | PN ---
Date/Time of Note Date/Time of Note DATE: 04/29/17 TIME: 11:42 Assessment/Plan VTE Prophylaxis VTE Prophylaxis Intervention: heparin Lines/Catheters IV [facility] Type (from [facility]): Peripheral IV Urinary Cath still in place: Yes Reason Cath still needed: urinary retention Assessment/Plan Chief Complaint/Hosp Course ASSESSMENT AND PLAN: 81-year-old female with recent left middle cerebral artery stroke on April 12, hypertension, high cholesterol, history of breast cancer, who presents with shortness of breath and hypoxia, hyperglycemia, and hypernatremia. 1. Shortness of breath/respiratory distress -still requiring nonrebreather, chest x-ray shows possible upper respiratory infection -continue on oxygen supplementation. - broad spectrum antibiotics as well given her leukocytosis and elevated temperature. -Tylenol p.r.n. pain or fever. 2. Hypernatremia -improving, still elevated (159 -> 160 -> 149) -D5W IV fluids -Continue free water through G-tube as well. 3. Hyperglycemia. Sugars still elevated in the 200-260 range. Again, there is no elevated anion gap, lactic acid was normal as well. A1c = 8.4 -continue subcu insulin, will add aspart every 6 hours and increase Lantus dose 4. Hypertension. Again, continue to monitor for now. 5. High cholesterol. Follow up lipid panel. 6. History of breast cancer. Continue to monitor for now. Again, patient is a do not resuscitate. Problems: Subjective 24 Hr Interval Summary Free Text/Dictation Still on nonrebreather, seen by renal and infectious disease teams. Exam/Review of Systems Vital Signs Vitals Vital Signs Date Time Temp Pulse Resp B/P Pulse Ox O2 Delivery O2 Flow Rate FiO2 04/29/17 11:34 99.2 79 18 175/77 94 04/29/17 08:26 Non Rebreather Mask 15.0 100 Intake and Output 04/28/17 04/28/17 04/29/17 15:00 23:00 07:00 Intake Total 100 ml 925 ml 1950 ml Output Total 500 ml 450 ml Balance 100 ml 425 ml 1500 ml Exam GENERAL: Patient lying in bed, opens eyes, on non-rebreather, HEENT: Pupils equal, round, react to light, Extraocular muscles intact. NECK: Supple. LUNGS: less distant breath sounds bilaterally. CARDIOVASCULAR: S1, S2 heard. Tachycardic heart rate. ABDOMEN: Soft, nontender, nondistended. Normal bowel sounds. No rebound or guarding. MUSCULOSKELETAL: no lower extremity bilaterally. NEUROLOGIC: Unable to perform due to the patient's lethargy. Results Result Diagram: 04/29/17 0630 04/29/17 0630 Results 24 hrs Laboratory Tests Test 04/28/17 17:30 04/28/17 20:40 04/29/17 00:22 04/29/17 06:04 Bedside Glucose 192 204 274 H 255 H Test 04/29/17 06:30 04/29/17 08:30 White Blood Count 12.8 H Red Blood Count 3.96 L Hemoglobin 11.6 L Hematocrit 38.7 Mean Corpuscular Volume 97.7 Mean Corpuscular Hemoglobin 29.3 Mean Corpuscular Hemoglobin Concent 30.0 L Red Cell Distribution Width 13.3 Platelet Count 205 Mean Platelet Volume 12.3 H Neutrophils % 76.7 Lymphocytes % 15.0 Monocytes % 4.9 Eosinophils % 2.4 Basophils % 0.5 Nucleated Red Blood Cells % 0.0 Neutrophils # 9.8 H Lymphocytes # 1.9 Monocytes # 0.6 Eosinophils # 0.3 Basophils # 0.1 Nucleated Red Blood Cells # 0.0 Sodium Level 149 H Potassium Level 3.3 L Chloride Level 114 H Carbon Dioxide Level 31 Anion Gap 7 L Blood Urea Nitrogen 29 H Creatinine 0.72 Glucose Level 268 H Calcium Level 8.1 L Bedside Glucose 289 H Medications Medications Current Medications Ondansetron HCl (Zofran Inj) 4 mg Q6H PRN IV NAUSEA AND/OR VOMITING; Start at 16:00 Acetaminophen (Tylenol Tab) 650 mg Q6H PRN PO PAIN LEVEL 1-3 OR FEVER; Start at 16:00 Acetaminophen/ Hydrocodone Bitart ([place] (5/325)) 1 tab Q6H PRN PO MODERATE PAIN LEVEL 4-6; Start 04/27/17 at 16:00 Morphine Sulfate (morphine) 2 mg Q4H PRN IV SEVERE PAIN LEVEL 7-10; Start 04/27 at 16:00 Docusate Sodium (Colace) 100 mg Q12H PRN PO CONSTIPATION; Start 04/27/17 at 16: 00 Magnesium Hydroxide (Milk Of Mag) 30 ml DAILY PRN PO CONSTIPATION; Start at 16:00 Famotidine (Pepcid Iv) 20 mg Q12 IV Last administered on 04/29/17 08:49; Admin Dose 20 MG; Start 04/27/17 at 21:00 Heparin Sodium (Porcine) (Heparin (5000 Units/0.5 ml)) 5,000 unit Q12 SC Last administered on 04/29/17 08:48; Admin Dose 5,000 UNIT; Start 04/27/17 at 21:00 Lorazepam (Ativan) 0.5 mg Q6H PRN IV ANXIETY Last administered on 04/29/17 10: 57; Admin Dose 0.5 MG; Start 04/27/17 at 16:00 Vancomycin HCl (Vanco Iv Per Pharmacy) VANCOMYCIN PER PHARMACY NOTE XX ; Start 04/27/17 at 16:00 Nitroglycerin (Nitroglycerin (Sl Tab) 0.4 Mg) 1 tab Q5M PRN SL ANGINA; Start at 16:00 Diagnostic Test (Pha) (Accu-Chek) 1 ea 02 XX Last administered on 04/29/17 02: 00; Admin Dose 1 EA; Start 04/28/17 at 02:00 Insulin Aspart (Novolog Insulin Pen) NOVOLOG *MODERATE* ALGORI... Q4 SC Last administered on 04/29/17 08:46; Admin Dose 8 UNIT; Start 04/27/17 at 17:00 Clopidogrel Bisulfate (plaVIX) 75 mg DAILY PO Last administered on 04/29/17 08 :49; Admin Dose 75 MG; Start 04/28/17 at 09:00 Exemestane (Aromasin) 25 mg DAILY GTB Last administered on 04/29/17 08:47; Admin Dose 25 MG; Start 04/28/17 at 09:00 Levetiracetam (Keppra Liquid) 500 mg BID GTB Last administered on 04/29/17 08: 49; Admin Dose 500 MG; Start 04/27/17 at 21:00 Miscellaneous Information 1 ea NOTE XX ; Start 04/27/17 at 16:30 Glucose (Glutose) 15 gm Q15M PRN PO DECREASED GLUCOSE; Start 04/27/17 at 16:30 Glucose (Glutose) 22.5 gm Q15M PRN PO DECREASED GLUCOSE; Start 04/27/17 at 16: 30 Dextrose (D50w Syringe) 25 ml Q15M PRN IV DECREASED GLUCOSE; Start 04/27/17 at 16:30 Dextrose (D50w Syringe) 50 ml Q15M PRN IV DECREASED GLUCOSE; Start 04/27/17 at 16:30 Glucagon (Glucagen) 1 mg Q15M PRN IM DECREASED GLUCOSE; Start 04/27/17 at 16:30 Glucose 15 gm 15 gm Q15M PRN BUCCAL DECREASED GLUCOSE; Start 04/27/17 at 16:30 Vancomycin HCl 750 mg/Dextrose/ Water 150 ml @ 75 mls/hr Q24H IVPB Last administered on 04/29/17 01:26; Admin Dose 75 MLS/HR; Start 04/28/17 at 01:00 Piperacillin Sod/ Tazobactam Sod/ Dextrose (Zosyn/D5W) 100 ml @ 200 mls/hr Q6 IVPB Last administered on 04/29/17 06:07; Admin Dose 200 MLS/HR; Start at 00:00 Insulin Glargine 20 unit 20 unit DAILY@20 SC Last administered on 04/28/17 21: 15; Admin Dose 20 UNIT; Start 04/28/17 at 20:00 Dextrose 1,000 ml @ 75 mls/hr [id number] IV Last administered on 04/29/17 06:09 ; Admin Dose 75 MLS/HR; Start 04/28/17 at 15:00 Potassium Chloride (KCl 10 MEQ/50 ML SW) 50 ml @ 50 mls/hr Q1H IVPB ; Start at 11:30; Stop 04/29/17 at 13:29 FLORI DIAL Apr 29, 2017 11:56
[2017-04-29] MEDS ORDERED: hydrALAzine 20 MG INJ IV PRN (12:30)
[2017-04-29] MEDS: POTASSIUM CHLORIDE 50 ML IVPB SCH ×2 (13:08→14:17)
--- NOTE | 2017-04-29 13:46 | CONS ---
Date/Time of Note Date/Time of Note DATE: 04/29/17 TIME: 13:45 Assessment/Plan Assessment/Plan Chief Complaint/Hosp Course No acute events per report. Patient is noncommunicative, lying comfortably in bed, no fevers Temperature 99.2 pulse 79 respirations 18 blood pressure 75/77 saturation 94% WBC 12.8 H&H 11.6 and 38.7 platelets 205 neutrophils 76.7 BUN 29 creatinine 0.72 Microbiology: Blood cultures remain negative, urine culture growing enterococcus species Indwelling's: PEG, Still Physical examination: Fragile well-developed elderly woman in no distress. Head : Atraumatic normocephalic, Sclerae anicteric, bugle mucosa dry. Neck is obese , trachea midline. Chest rise symmetrical breath sounds diminished bases with scattered crackles. Heart: S1-S2. Abdomen soft bowel sounds present. Extremities without cyanosis Assessment: 1. Sepsis with fevers and leukocytosis 2. Urinary tract infection 3. Dysphasia, possibly ongoing aspiration 4. History of CVA 5. History of breast cancer Plan: Patient remains stable, WBC decreasing, continue antibiotics, aspiration precautions Problems: Consultation Date/Type/Reason Admit Date/Time Apr 27, 2017 at 13:31 Initial Consult Date 04/28/17 Type of Consultation: ID Referring Provider: FLORI DIAL Exam/Review of Systems Vital Signs Vitals Vital Signs Date Time Temp Pulse Resp B/P Pulse Ox O2 Delivery O2 Flow Rate FiO2 04/29/17 12:18 88 04/29/17 11:34 99.2 18 175/77 94 04/29/17 08:26 Non Rebreather Mask 15.0 100 Intake and Output 04/28/17 04/28/17 04/29/17 15:00 23:00 07:00 Intake Total 100 ml 925 ml 1950 ml Output Total 500 ml 450 ml Balance 100 ml 425 ml 1500 ml Results Result Diagram: 04/29/17 0630 04/29/17 0630 Results 24 hrs Laboratory Tests Test 04/28/17 17:30 04/28/17 20:40 04/29/17 00:22 04/29/17 06:04 Bedside Glucose 192 204 274 H 255 H Test 04/29/17 06:30 04/29/17 08:30 04/29/17 11:42 White Blood Count 12.8 H Red Blood Count 3.96 L Hemoglobin 11.6 L Hematocrit 38.7 Mean Corpuscular Volume 97.7 Mean Corpuscular Hemoglobin 29.3 Mean Corpuscular Hemoglobin Concent 30.0 L Red Cell Distribution Width 13.3 Platelet Count 205 Mean Platelet Volume 12.3 H Neutrophils % 76.7 Lymphocytes % 15.0 Monocytes % 4.9 Eosinophils % 2.4 Basophils % 0.5 Nucleated Red Blood Cells % 0.0 Neutrophils # 9.8 H Lymphocytes # 1.9 Monocytes # 0.6 Eosinophils # 0.3 Basophils # 0.1 Nucleated Red Blood Cells # 0.0 Sodium Level 149 H Potassium Level 3.3 L Chloride Level 114 H Carbon Dioxide Level 31 Anion Gap 7 L Blood Urea Nitrogen 29 H Creatinine 0.72 Glucose Level 268 H Calcium Level 8.1 L Bedside Glucose 289 H 219 Medications Medications Current Medications Ondansetron HCl (Zofran Inj) 4 mg Q6H PRN IV NAUSEA AND/OR VOMITING; Start at 16:00 Acetaminophen (Tylenol Tab) 650 mg Q6H PRN PO PAIN LEVEL 1-3 OR FEVER; Start at 16:00 Acetaminophen/ Hydrocodone Bitart ([place] (5/325)) 1 tab Q6H PRN PO MODERATE PAIN LEVEL 4-6; Start 04/27/17 at 16:00 Morphine Sulfate (morphine) 2 mg Q4H PRN IV SEVERE PAIN LEVEL 7-10; Start 04/27 at 16:00 Docusate Sodium (Colace) 100 mg Q12H PRN PO CONSTIPATION; Start 04/27/17 at 16: 00 Magnesium Hydroxide (Milk Of Mag) 30 ml DAILY PRN PO CONSTIPATION; Start at 16:00 Famotidine (Pepcid Iv) 20 mg Q12 IV Last administered on 04/29/17 08:49; Admin Dose 20 MG; Start 04/27/17 at 21:00 Heparin Sodium (Porcine) (Heparin (5000 Units/0.5 ml)) 5,000 unit Q12 SC Last administered on 04/29/17 08:48; Admin Dose 5,000 UNIT; Start 04/27/17 at 21:00 Lorazepam (Ativan) 0.5 mg Q6H PRN IV ANXIETY Last administered on 04/29/17 10: 57; Admin Dose 0.5 MG; Start 04/27/17 at 16:00 Vancomycin HCl (Vanco Iv Per Pharmacy) VANCOMYCIN PER PHARMACY NOTE XX ; Start 04/27/17 at 16:00 Nitroglycerin (Nitroglycerin (Sl Tab) 0.4 Mg) 1 tab Q5M PRN SL ANGINA; Start at 16:00 Diagnostic Test (Pha) (Accu-Chek) 1 ea 02 XX Last administered on 04/29/17 02: 00; Admin Dose 1 EA; Start 04/28/17 at 02:00 Insulin Aspart (Novolog Insulin Pen) NOVOLOG *MODERATE* ALGORI... Q4 SC Last administered on 04/29/17 12:06; Admin Dose 4 UNIT; Start 04/27/17 at 17:00 Clopidogrel Bisulfate (plaVIX) 75 mg DAILY PO Last administered on 04/29/17 08 :49; Admin Dose 75 MG; Start 04/28/17 at 09:00 Exemestane (Aromasin) 25 mg DAILY GTB Last administered on 04/29/17 08:47; Admin Dose 25 MG; Start 04/28/17 at 09:00 Levetiracetam (Keppra Liquid) 500 mg BID GTB Last administered on 04/29/17 08: 49; Admin Dose 500 MG; Start 04/27/17 at 21:00 Miscellaneous Information 1 ea NOTE XX ; Start 04/27/17 at 16:30 Glucose (Glutose) 15 gm Q15M PRN PO DECREASED GLUCOSE; Start 04/27/17 at 16:30 Glucose (Glutose) 22.5 gm Q15M PRN PO DECREASED GLUCOSE; Start 04/27/17 at 16: 30 Dextrose (D50w Syringe) 25 ml Q15M PRN IV DECREASED GLUCOSE; Start 04/27/17 at 16:30 Dextrose (D50w Syringe) 50 ml Q15M PRN IV DECREASED GLUCOSE; Start 04/27/17 at 16:30 Glucagon (Glucagen) 1 mg Q15M PRN IM DECREASED GLUCOSE; Start 04/27/17 at 16:30 Glucose 15 gm 15 gm Q15M PRN BUCCAL DECREASED GLUCOSE; Start 04/27/17 at 16:30 Vancomycin HCl 750 mg/Dextrose/ Water 150 ml @ 75 mls/hr Q24H IVPB Last administered on 04/29/17 01:26; Admin Dose 75 MLS/HR; Start 04/28/17 at 01:00 Piperacillin Sod/ Tazobactam Sod 3.375 gm/Dextrose 100 ml @ 200 mls/hr Q6 IVPB Last administered on 04/29/17 11:49; Admin Dose 200 MLS/HR; Start 04/28/17 at 00:00 Dextrose (D5W) 1,000 ml @ 75 mls/hr [id number] IV Last administered on 04/29/17 06:09; Admin Dose 75 MLS/HR; Start 04/28/17 at 15:00 Insulin Glargine (Lantus) 25 unit DAILY@20 SC ; Start 04/29/17 at 20:00 Insulin Aspart (Novolog Insulin Pen) 7 unit Q6 SC Last administered on 12:05; Admin Dose 7 UNIT; Start 04/29/17 at 12:00 Hydralazine HCl (Apresoline) 10 mg Q6H PRN IV ELEVATED BLOOD PRESSURE; Start at 12:30 KELLEY ALVES NP Apr 29, 2017 13:46
--- NOTE | 2017-04-29 14:45 | CONS ---
DATE OF ADMISSION: 04/27/2017 DATE OF CONSULTATION: 04/29/2017 REASON FOR CONSULTATION: Shortness of breath. Thank you, Dr. Norman, for this consultation. HISTORY OF PRESENT ILLNESS: This is a 81-year-old lady brought in with increasing shortness of breath, orthopnea and PND. She has a history of CVA, recently seen at [facility]. She spent approximately 1 week in a penitentiary facility and then developed fevers with increasing shortness of breath, orthopnea, PND. On arrival to the emergency room, patient was noted to have marked hypoxemia, significant leukocytosis, patchy infiltrates on chest x-ray with hyperglycemia and hyponatremia. PAST MEDICAL HISTORY: 1. Recent CVA. 2. History of cataract surgery. 3. History of breast cancer with regional excision. MEDICATION: Per chart. ALLERGIES: NONE. SOCIAL HISTORY: Nonsmoker. No alcohol. No history of drug use. FAMILY HISTORY: Noncontributory. PHYSICAL EXAMINATION: GENERAL: On examination, elderly appearing lady on Ventimask O2. OBJECTIVE DATA: VITAL SIGNS: Temperature 98, pulse is 88, blood pressure 177/77, O2 saturation 96 percent on non-rebreather. NECK: Supple. No JVD. No lymphadenopathy. CARDIAC: S1, S2. No added sounds or murmurs. CHEST: Diminished air entry bilaterally. ABDOMEN: Soft, nontender. No guarding or rebound. EXTREMITIES: No cyanosis, clubbing, or edema. NEUROLOGIC: Generalized weakness. LABORATORY AND DIAGNOSTIC IMAGING: White count 12.8, hemoglobin 11.6, platelets of 205, BUN 29, creatinine 0.72. Chest x-ray which was reviewed. Chest x-ray shows some mild bibasilar atelectasis. EKG shows no acute ischemic changes. IMPRESSION: 1. Hypoxemic respiratory failure. 2. Possible aspiration pneumonitis. 3. History of cerebrovascular accident with dysphagia. 4. Remote history of breast cancer. PLAN: The patient will require: 1. Continued supplemental O2. 2. Pulmonary toilet. 3. NPO. 4. Broad-spectrum antibiotic coverage. 5. Glycemic management. 6. Deep venous thrombosis and gastrointestinal prophylaxis. Dictated By: Mychal Lane MD /[email or web address]/ /Document#: [id number]
--- NOTE | 2017-04-29 17:19 | CONS ---
Date/Time of Note Date/Time of Note DATE: 04/29/17 TIME: 17:18 Assessment/Plan Assessment/Plan Additional Assessment/Plan 11 yo Female 1) Hypernatremia 2) Ingrid, Pre-Renal 3) Recent large left sided stroke 4) DNR 5) Hyperglycemia 6) HTN, Chronic Cont Free H20 through Gtube Cont D5 W at this time Repeat labs in am Cont to monitor Is and Os, UO, Electrolytes and renal function Na improving, Cr stable and improved. Will cont to follow closely. Consultation Date/Type/Reason Admit Date/Time Apr 27, 2017 at 13:31 Initial Consult Date 04/28/17 Type of Consultation: ID Referring Provider: FLORI DIAL 24 HR Interval Summary Constitutional: requiring O2 Exam/Review of Systems Vital Signs Vitals Vital Signs Date Time Temp Pulse Resp B/P Pulse Ox O2 Delivery O2 Flow Rate FiO2 04/29/17 16:49 98.4 87 19 168/82 98 04/29/17 15:01 15.0 04/29/17 08:26 Non Rebreather Mask 100 Intake and Output 04/28/17 04/28/17 04/29/17 15:00 23:00 07:00 Intake Total 100 ml 925 ml 1950 ml Output Total 500 ml 450 ml Balance 100 ml 425 ml 1500 ml Exam Constitutional: No distress ENMT: mucosa pink and moist Neck: No jvd Respiratory: crackles/rales, No diminished breath sounds, No labored breathing Cardiovascular: regular rate and rhythm, No edema Gastrointestinal: soft Neurological: lethargic Skin: No diaphoresis Results Result Diagram: 04/29/17 0630 04/29/17 0630 Results 24 hrs Laboratory Tests Test 04/28/17 17:30 04/28/17 20:40 04/29/17 00:22 04/29/17 06:04 Bedside Glucose 192 204 274 H 255 H Test 04/29/17 06:30 04/29/17 08:30 04/29/17 11:42 White Blood Count 12.8 H Red Blood Count 3.96 L Hemoglobin 11.6 L Hematocrit 38.7 Mean Corpuscular Volume 97.7 Mean Corpuscular Hemoglobin 29.3 Mean Corpuscular Hemoglobin Concent 30.0 L Red Cell Distribution Width 13.3 Platelet Count 205 Mean Platelet Volume 12.3 H Neutrophils % 76.7 Lymphocytes % 15.0 Monocytes % 4.9 Eosinophils % 2.4 Basophils % 0.5 Nucleated Red Blood Cells % 0.0 Neutrophils # 9.8 H Lymphocytes # 1.9 Monocytes # 0.6 Eosinophils # 0.3 Basophils # 0.1 Nucleated Red Blood Cells # 0.0 Sodium Level 149 H Potassium Level 3.3 L Chloride Level 114 H Carbon Dioxide Level 31 Anion Gap 7 L Blood Urea Nitrogen 29 H Creatinine 0.72 Glucose Level 268 H Calcium Level 8.1 L Bedside Glucose 289 H 219 Medications Medications Current Medications Ondansetron HCl (Zofran Inj) 4 mg Q6H PRN IV NAUSEA AND/OR VOMITING; Start at 16:00 Acetaminophen (Tylenol Tab) 650 mg Q6H PRN PO PAIN LEVEL 1-3 OR FEVER; Start at 16:00 Acetaminophen/ Hydrocodone Bitart ([place] (5/325)) 1 tab Q6H PRN PO MODERATE PAIN LEVEL 4-6; Start 04/27/17 at 16:00 Morphine Sulfate (morphine) 2 mg Q4H PRN IV SEVERE PAIN LEVEL 7-10; Start 04/27 at 16:00 Docusate Sodium (Colace) 100 mg Q12H PRN PO CONSTIPATION; Start 04/27/17 at 16: 00 Magnesium Hydroxide (Milk Of Mag) 30 ml DAILY PRN PO CONSTIPATION; Start at 16:00 Famotidine (Pepcid Iv) 20 mg Q12 IV Last administered on 04/29/17 08:49; Admin Dose 20 MG; Start 04/27/17 at 21:00 Heparin Sodium (Porcine) (Heparin (5000 Units/0.5 ml)) 5,000 unit Q12 SC Last administered on 04/29/17 08:48; Admin Dose 5,000 UNIT; Start 04/27/17 at 21:00 Lorazepam (Ativan) 0.5 mg Q6H PRN IV ANXIETY Last administered on 04/29/17 10: 57; Admin Dose 0.5 MG; Start 04/27/17 at 16:00 Vancomycin HCl (Vanco Iv Per Pharmacy) VANCOMYCIN PER PHARMACY NOTE XX ; Start 04/27/17 at 16:00 Nitroglycerin (Nitroglycerin (Sl Tab) 0.4 Mg) 1 tab Q5M PRN SL ANGINA; Start at 16:00 Diagnostic Test (Pha) (Accu-Chek) 1 ea 02 XX Last administered on 04/29/17 02: 00; Admin Dose 1 EA; Start 04/28/17 at 02:00 Insulin Aspart (Novolog Insulin Pen) NOVOLOG *MODERATE* ALGORI... Q4 SC Last administered on 04/29/17 12:06; Admin Dose 4 UNIT; Start 04/27/17 at 17:00 Clopidogrel Bisulfate (plaVIX) 75 mg DAILY PO Last administered on 04/29/17 08 :49; Admin Dose 75 MG; Start 04/28/17 at 09:00 Exemestane (Aromasin) 25 mg DAILY GTB Last administered on 04/29/17 08:47; Admin Dose 25 MG; Start 04/28/17 at 09:00 Levetiracetam (Keppra Liquid) 500 mg BID GTB Last administered on 04/29/17 08: 49; Admin Dose 500 MG; Start 04/27/17 at 21:00 Miscellaneous Information 1 ea NOTE XX ; Start 04/27/17 at 16:30 Glucose (Glutose) 15 gm Q15M PRN PO DECREASED GLUCOSE; Start 04/27/17 at 16:30 Glucose (Glutose) 22.5 gm Q15M PRN PO DECREASED GLUCOSE; Start 04/27/17 at 16: 30 Dextrose (D50w Syringe) 25 ml Q15M PRN IV DECREASED GLUCOSE; Start 04/27/17 at 16:30 Dextrose (D50w Syringe) 50 ml Q15M PRN IV DECREASED GLUCOSE; Start 04/27/17 at 16:30 Glucagon (Glucagen) 1 mg Q15M PRN IM DECREASED GLUCOSE; Start 04/27/17 at 16:30 Glucose 15 gm 15 gm Q15M PRN BUCCAL DECREASED GLUCOSE; Start 04/27/17 at 16:30 Vancomycin HCl 750 mg/Dextrose/ Water 150 ml @ 75 mls/hr Q24H IVPB Last administered on 04/29/17 01:26; Admin Dose 75 MLS/HR; Start 04/28/17 at 01:00 Piperacillin Sod/ Tazobactam Sod 3.375 gm/Dextrose 100 ml @ 200 mls/hr Q6 IVPB Last administered on 04/29/17 11:49; Admin Dose 200 MLS/HR; Start 04/28/17 at 00:00 Dextrose (D5W) 1,000 ml @ 75 mls/hr [id number] IV Last administered on 04/29/17 06:09; Admin Dose 75 MLS/HR; Start 04/28/17 at 15:00 Insulin Glargine (Lantus) 25 unit DAILY@20 SC ; Start 04/29/17 at 20:00 Insulin Aspart (Novolog Insulin Pen) 7 unit Q6 SC Last administered on 12:05; Admin Dose 7 UNIT; Start 04/29/17 at 12:00 Hydralazine HCl (Apresoline) 10 mg Q6H PRN IV ELEVATED BLOOD PRESSURE; Start at 12:30 PRAAG RESENDIZ MD Apr 29, 2017 17:19
[2017-04-29] MEDS ORDERED: INSULIN GLARGINE [LANtus] 3 ML PEN SC SCH (20:00)
[2017-04-30] VITALS (10 sets, daily range): BP systolic 132–149; BP diastolic 62–73; PULSE 79–92; RESP 16–20
[2017-04-30] MEDS: PIPERACILLIN/TAZO 3.375 GM in DEXTROSE 5% 100 ML IVPB SCH ×4 (00:53→17:50)
[2017-04-30] MEDS: INSULIN ASPART [NOVOLOG] 3 ML PEN SC SCH ×10 (01:03→21:00)
[2017-04-30] MEDS: VANCOMYCIN 750 MG in DEXTROSE 5% 150 ML IVPB SCH (02:08)
[2017-04-30] MEDS: ACCU-CHEK XX SCH (02:08)
[2017-04-30] MEDS: DEXTROSE 5% 1,000 ML IV SCH (06:00)
[2017-04-30 07:56] LABS: BASOPHIL # 0.1 10^3/ul (0.0-0.1); BASOPHILS % 0.5 % (0.0-2.0); EOSINOPHILS # 0.3 10^3/ul (0.0-0.5); EOSINOPHILS % 2.8 % (0.0-7.0); HEMATOCRIT 36.4 % (37.0-47.0); HEMOGLOBIN 11.2 g/dl (12.0-16.0); LYMPHOCYTES # 1.6 10^3/ul (0.8-2.9); LYMPHOCYTES % 14.9 % (15.0-51.0); MEAN CORPUSCULAR HEMOGLOBIN 28.9 pg (29.0-33.0); MEAN CORPUSCULAR HGB CONC 30.8 g/dl (32.0-37.0); MEAN CORPUSCULAR VOLUME 94.1 fl (82.0-101.0); MEAN PLATELET VOLUME 12.7 fl (7.4-10.4); MONOCYTE # 0.5 10^3/ul (0.3-0.9); MONOCYTES % 4.2 % (0.0-11.0); NEUTROPHIL # 8.2 10^3/ul (1.6-7.5); NEUTROPHILS % 77.2 % (39.0-77.0); PLATELET COUNT 164 10^3/UL (140-415); RED BLOOD COUNT 3.87 10^6/ul (4.20-5.40); RED CELL DISTRIBUTION WIDTH 13.2 % (11.5-14.5); WHITE BLOOD COUNT 10.6 10^3/ul (4.8-10.8)
[2017-04-30 08:15] LABS: CALCIUM 7.5 mg/dl (8.4-10.2); CREATININE 0.64 mg/dl (0.44-1.00)
[2017-04-30 08:26] LABS: AADO2 Arterial 129.5 mmHg (7.0-24.0); Allen Test ACCEPTAB; Arterial Base Excess 5.5 mmol/L (-3.0-3); Arterial COHb 0.3 % (0.0-3.0); Arterial Fraction of Oxyhgb 96.9 % (93.0-99.0); Arterial HCO3 29.3 mmol/L (22.0-26.0); Arterial MetHb 0.2 % (0.0-1.5); Arterial Total Hemglobin 11.9 g/dl (12.0-18.0); MODE MASK - SIMPLE
[2017-04-30] MEDS: LEVETIRACETAM (100 MG/ML) 5ML CUP GTB SCH ×2 (08:42→20:30)
[2017-04-30] MEDS: FAMOTIDINE 20 MG INJ IV SCH (08:42)
[2017-04-30] MEDS: CLOPIDOGREL 75 MG TAB PO SCH (08:42)
[2017-04-30] MEDS: EXEMESTANE 25 MG TAB GTB SCH (08:46)
[2017-04-30] MEDS: HEPARIN 5,000 UNIT/0.5 ML VIAL SC SCH ×2 (08:48→20:33)
--- NOTE | 2017-04-30 09:00 | RADRPT ---
PROCEDURE: XR Chest. CLINICAL INDICATION: Shortness of breath. TECHNIQUE: Single frontal view. COMPARISON: 04/27/2017. FINDINGS: There is mild atelectasis at the lung bases. There are low lung volumes. Heart is enlarged. Surgical clips are present in the right axilla and right upper quadrant of the ab domen. There is no pleural effusion. There is no pneumothorax. There is thoracic scoliosis convex right superiorly and convex left inferiorly. IMPRESSION: 1. No change from 04/27/2017. RPTAT: QQ .Devante Newman MD, MD Date Time Electronically viewed and signed by .Devante Newman MD, MD on 04/30/2017 09:00 .R/
[2017-04-30] MEDS: POTASSIUM CHLORIDE 250 ML IVPB SCH ×2 (10:07→14:23)
--- NOTE | 2017-04-30 10:18 | PN ---
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 1. Sepsis - sec to UTI and URI -Shortness of breath/respiratory distress slowly improving-still on O2 supplementation. -continue on oxygen supplementation. - broad spectrum antibiotics as well given her leukocytosis (improved) and elevated temperature. -Tylenol p.r.n. pain or fever. 2. Hypernatremia -improving now (159 -> 160 -> 149 -> 142) -Continue D5W IV fluids -Continue free water through G-tube as well. -Follow-up renal recommendations 3. Hyperglycemia. Sugars still elevated in the 180-240 range. Again, there is no elevated anion gap, lactic acid was normal as well. A1c = 8.4 -continue subcu insulin, will slightly increase aspart and increase Lantus dose today 4. Hypertension. Again, continue to monitor for now. 5. High cholesterol. Follow up lipid panel. 6. History of breast cancer. Continue to monitor for now. Again, patient is a do not resuscitate. Problems: Subjective 24 Hr Interval Summary Free Text/Dictation Pt seen by pulm and ID teams. Still temp 100.3 today. Exam/Review of Systems Vital Signs Vitals Vital Signs Date Time Temp Pulse Resp B/P Pulse Ox O2 Delivery O2 Flow Rate FiO2 04/30/17 08:02 100.3 92 16 132/62 96 04/30/17 00:45 10.0 04/29/17 20:00 Non Rebreather 04/29/17 08:26 100 Intake and Output 04/29/17 04/29/17 04/30/17 15:00 23:00 07:00 Intake Total 1860 ml 2070 ml Output Total 700 ml 1000 ml Balance 1160 ml 1070 ml Exam GENERAL: Patient lying in bed, opens eyes, on oxygen mask HEENT: Pupils equal, round, react to light, Extraocular muscles intact. NECK: Supple. LUNGS: less distant breath sounds bilaterally. CARDIOVASCULAR: S1, S2 heard. ABDOMEN: Soft, nontender, nondistended. Normal bowel sounds. No rebound or guarding. MUSCULOSKELETAL: no lower extremity bilaterally. NEUROLOGIC: Unable to perform due to the patient's lethargy. Results Result Diagram: 04/30/17 0643 04/30/17 0643 Results 24 hrs Laboratory Tests Test 04/29/17 11:42 04/29/17 17:27 04/29/17 20:26 04/30/17 00:52 Bedside Glucose 219 151 180 212 Test 04/30/17 05:55 04/30/17 06:43 04/30/17 07:00 04/30/17 08:47 Bedside Glucose 193 223 H White Blood Count 10.6 Red Blood Count 3.87 L Hemoglobin 11.2 L Hematocrit 36.4 L Mean Corpuscular Volume 94.1 Mean Corpuscular Hemoglobin 28.9 L Mean Corpuscular Hemoglobin Concent 30.8 L Red Cell Distribution Width 13.2 Platelet Count 164 Mean Platelet Volume 12.7 H Neutrophils % 77.2 H Lymphocytes % 14.9 L Monocytes % 4.2 Eosinophils % 2.8 Basophils % 0.5 Nucleated Red Blood Cells % 0.0 Neutrophils # 8.2 H Lymphocytes # 1.6 Monocytes # 0.5 Eosinophils # 0.3 Basophils # 0.1 Nucleated Red Blood Cells # 0.0 Sodium Level 142 Potassium Level 3.0 L Chloride Level 105 Carbon Dioxide Level 32 H Anion Gap 8 Blood Urea Nitrogen 19 # Creatinine 0.64 Glucose Level 199 Calcium Level 7.5 L Blood Gas Specimen Source Blood arterial Arterial Blood Date Drawn 04/30/2017 7:50:20 AM Arterial Blood pH (Temp corrected) 7.482 H Arterial Blood pCO2 (Temp correct) 40.1 Arterial Blood pO2 (Temp corrected) 102.4 H Arterial Blood HCO3 29.3 H Arterial Blood Base Excess 5.5 H Arterial Blood Oxygen Saturation 97.4 Jef Test ACCEPTAB Arterial Blood Gas Puncture Site Left Radial Arterial Blood Carboxyhemoglobin 0.3 Arterial Blood Methemoglobin 0.2 Blood Gas A-a O2 Differential 129.5 H Oxyhemoglobin Percent 96.9 Total Hemoglobin 11.9 L Blood Gas Temperature 37.0 Blood Gas Modality MASK - SIMPLE FiO2 39.0 Blood Gas Notified Whom [place]VYD Blood Gas Notified Time 04/30/2017 8:25:50 AM Medications Medications Current Medications Ondansetron HCl (Zofran Inj) 4 mg Q6H PRN IV NAUSEA AND/OR VOMITING; Start at 16:00 Acetaminophen (Tylenol Tab) 650 mg Q6H PRN PO PAIN LEVEL 1-3 OR FEVER Last administered on 04/30/17 08:43; Admin Dose 650 MG; Start 04/27/17 at 16:00 Acetaminophen/ Hydrocodone Bitart ([place] (5/325)) 1 tab Q6H PRN PO MODERATE PAIN LEVEL 4-6; Start 04/27/17 at 16:00 Morphine Sulfate (morphine) 2 mg Q4H PRN IV SEVERE PAIN LEVEL 7-10; Start 04/27 at 16:00 Docusate Sodium (Colace) 100 mg Q12H PRN PO CONSTIPATION; Start 04/27/17 at 16: 00 Magnesium Hydroxide (Milk Of Mag) 30 ml DAILY PRN PO CONSTIPATION; Start at 16:00 Famotidine (Pepcid Iv) 20 mg Q12 IV Last administered on 04/30/17 08:42; Admin Dose 20 MG; Start 04/27/17 at 21:00 Heparin Sodium (Porcine) (Heparin (5000 Units/0.5 ml)) 5,000 unit Q12 SC Last administered on 04/30/17 08:48; Admin Dose 5,000 UNIT; Start 04/27/17 at 21:00 Lorazepam (Ativan) 0.5 mg Q6H PRN IV ANXIETY Last administered on 04/29/17 20: 29; Admin Dose 0.5 MG; Start 04/27/17 at 16:00 Vancomycin HCl (Vanco Iv Per Pharmacy) VANCOMYCIN PER PHARMACY NOTE XX ; Start 04/27/17 at 16:00 Nitroglycerin (Nitroglycerin (Sl Tab) 0.4 Mg) 1 tab Q5M PRN SL ANGINA; Start at 16:00 Diagnostic Test (Pha) (Accu-Chek) 1 ea 02 XX Last administered on 04/30/17 02: 08; Admin Dose 1 EA; Start 04/28/17 at 02:00 Insulin Aspart (Novolog Insulin Pen) NOVOLOG *MODERATE* ALGORI... Q4 SC Last administered on 04/30/17 08:49; Admin Dose 6 UNIT; Start 04/27/17 at 17:00 Clopidogrel Bisulfate (plaVIX) 75 mg DAILY PO Last administered on 04/30/17 08 :42; Admin Dose 75 MG; Start 04/28/17 at 09:00 Exemestane (Aromasin) 25 mg DAILY GTB Last administered on 04/30/17 08:46; Admin Dose 25 MG; Start 04/28/17 at 09:00 Levetiracetam (Keppra Liquid) 500 mg BID GTB Last administered on 04/30/17 08: 42; Admin Dose 500 MG; Start 04/27/17 at 21:00 Miscellaneous Information 1 ea NOTE XX ; Start 04/27/17 at 16:30 Glucose (Glutose) 15 gm Q15M PRN PO DECREASED GLUCOSE; Start 04/27/17 at 16:30 Glucose (Glutose) 22.5 gm Q15M PRN PO DECREASED GLUCOSE; Start 04/27/17 at 16: 30 Dextrose (D50w Syringe) 25 ml Q15M PRN IV DECREASED GLUCOSE; Start 04/27/17 at 16:30 Dextrose (D50w Syringe) 50 ml Q15M PRN IV DECREASED GLUCOSE; Start 04/27/17 at 16:30 Glucagon (Glucagen) 1 mg Q15M PRN IM DECREASED GLUCOSE; Start 04/27/17 at 16:30 Glucose 15 gm 15 gm Q15M PRN BUCCAL DECREASED GLUCOSE; Start 04/27/17 at 16:30 Vancomycin HCl 750 mg/Dextrose/ Water 150 ml @ 75 mls/hr Q24H IVPB Last administered on 04/30/17 02:08; Admin Dose 75 MLS/HR; Start 04/28/17 at 01:00 Piperacillin Sod/ Tazobactam Sod 3.375 gm/Dextrose 100 ml @ 200 mls/hr Q6 IVPB Last administered on 04/30/17 06:00; Admin Dose 200 MLS/HR; Start 04/28/17 at 00:00 Dextrose (D5W) 1,000 ml @ 75 mls/hr [id number] IV Last administered on 04/30/17 06:00; Admin Dose 75 MLS/HR; Start 04/28/17 at 15:00 Insulin Glargine (Lantus) 25 unit DAILY@20 SC Last administered on 04/29/17 20 :32; Admin Dose 25 UNIT; Start 04/29/17 at 20:00 Insulin Aspart (Novolog Insulin Pen) 7 unit Q6 SC Last administered on 06:16; Admin Dose 7 UNIT; Start 04/29/17 at 12:00 Hydralazine HCl 10 mg 10 mg Q6H PRN IV ELEVATED BLOOD PRESSURE; Start 04/29/17 at 12:30 Potassium Chloride (KCl 40 MEQ/250 ML NS) 250 ml @ 62.5 mls/hr Q4H IVPB Last administered on 04/30/17 10:07; Admin Dose 62.5 MLS/HR; Start 04/30/17 at 10:00 ; Stop 04/30/17 at 17:59 FLORI DIAL Apr 30, 2017 10:18
--- NOTE | 2017-04-30 11:41 | CONS ---
Date/Time of Note Date/Time of Note DATE: 04/30/17 TIME: 11:38 Consult Date/Type/Reason Admit Date/Time Apr 27, 2017 at 13:31 Initial Consult Date 04/28/17 Type of Consultation: Pulmonary Ordering Provider: FLORI DIAL Subjective Opens eyes to tactile stimuli. Continues Ventimask supplemental O2. Less respiratory distress. Objective Vital Signs Date Time Temp Pulse Resp B/P Pulse Ox O2 Delivery O2 Flow Rate FiO2 04/30/17 09:30 Non Rebreather 6.0 04/30/17 08:02 100.3 92 16 132/62 96 04/29/17 08:26 100 Intake and Output 04/29/17 04/29/17 04/30/17 15:00 23:00 07:00 Intake Total 1860 ml 2070 ml Output Total 700 ml 1000 ml Balance 1160 ml 1070 ml Exam OBJECTIVE DATA: VITAL SIGNS: Elderly lady with hemiplegia on Ventimask oxygen NECK: Supple. No JVD. No lymphadenopathy. CARDIAC: S1, S2. No added sounds or murmurs. CHEST: Diminished air entry bilaterally. ABDOMEN: Soft, nontender. No guarding or rebound. EXTREMITIES: No cyanosis, clubbing, or edema. NEUROLOGIC: Generalized weakness. Results/Medications Result Diagram: 04/30/17 0643 04/30/17 0643 Results 24 hrs Laboratory Tests Test 04/29/17 11:42 04/29/17 17:27 04/29/17 20:26 04/30/17 00:52 Bedside Glucose 219 151 180 212 Test 04/30/17 05:55 04/30/17 06:43 04/30/17 07:00 04/30/17 08:47 Bedside Glucose 193 223 H White Blood Count 10.6 Red Blood Count 3.87 L Hemoglobin 11.2 L Hematocrit 36.4 L Mean Corpuscular Volume 94.1 Mean Corpuscular Hemoglobin 28.9 L Mean Corpuscular Hemoglobin Concent 30.8 L Red Cell Distribution Width 13.2 Platelet Count 164 Mean Platelet Volume 12.7 H Neutrophils % 77.2 H Lymphocytes % 14.9 L Monocytes % 4.2 Eosinophils % 2.8 Basophils % 0.5 Nucleated Red Blood Cells % 0.0 Neutrophils # 8.2 H Lymphocytes # 1.6 Monocytes # 0.5 Eosinophils # 0.3 Basophils # 0.1 Nucleated Red Blood Cells # 0.0 Sodium Level 142 Potassium Level 3.0 L Chloride Level 105 Carbon Dioxide Level 32 H Anion Gap 8 Blood Urea Nitrogen 19 # Creatinine 0.64 Glucose Level 199 Calcium Level 7.5 L Blood Gas Specimen Source Blood arterial Arterial Blood Date Drawn 04/30/2017 7:50:20 AM Arterial Blood pH (Temp corrected) 7.482 H Arterial Blood pCO2 (Temp correct) 40.1 Arterial Blood pO2 (Temp corrected) 102.4 H Arterial Blood HCO3 29.3 H Arterial Blood Base Excess 5.5 H Arterial Blood Oxygen Saturation 97.4 Jef Test ACCEPTAB Arterial Blood Gas Puncture Site Left Radial Arterial Blood Carboxyhemoglobin 0.3 Arterial Blood Methemoglobin 0.2 Blood Gas A-a O2 Differential 129.5 H Oxyhemoglobin Percent 96.9 Total Hemoglobin 11.9 L Blood Gas Temperature 37.0 Blood Gas Modality MASK - SIMPLE FiO2 39.0 Blood Gas Notified Whom JLD Blood Gas Notified Time 04/30/2017 8:25:50 AM Medications Current Medications Ondansetron HCl (Zofran Inj) 4 mg Q6H PRN IV NAUSEA AND/OR VOMITING; Start at 16:00 Acetaminophen (Tylenol Tab) 650 mg Q6H PRN PO PAIN LEVEL 1-3 OR FEVER Last administered on 04/30/17 08:43; Admin Dose 650 MG; Start 04/27/17 at 16:00 Acetaminophen/ Hydrocodone Bitart ([place] (5/325)) 1 tab Q6H PRN PO MODERATE PAIN LEVEL 4-6; Start 04/27/17 at 16:00 Morphine Sulfate (morphine) 2 mg Q4H PRN IV SEVERE PAIN LEVEL 7-10; Start 04/27 at 16:00 Docusate Sodium (Colace) 100 mg Q12H PRN PO CONSTIPATION; Start 04/27/17 at 16: 00 Magnesium Hydroxide (Milk Of Mag) 30 ml DAILY PRN PO CONSTIPATION; Start at 16:00 Famotidine (Pepcid Iv) 20 mg Q12 IV Last administered on 04/30/17 08:42; Admin Dose 20 MG; Start 04/27/17 at 21:00 Heparin Sodium (Porcine) (Heparin (5000 Units/0.5 ml)) 5,000 unit Q12 SC Last administered on 04/30/17 08:48; Admin Dose 5,000 UNIT; Start 04/27/17 at 21:00 Lorazepam (Ativan) 0.5 mg Q6H PRN IV ANXIETY Last administered on 04/29/17 20: 29; Admin Dose 0.5 MG; Start 04/27/17 at 16:00 Vancomycin HCl (Vanco Iv Per Pharmacy) VANCOMYCIN PER PHARMACY NOTE XX ; Start 04/27/17 at 16:00 Nitroglycerin (Nitroglycerin (Sl Tab) 0.4 Mg) 1 tab Q5M PRN SL ANGINA; Start at 16:00 Diagnostic Test (Pha) (Accu-Chek) 1 ea 02 XX Last administered on 04/30/17 02: 08; Admin Dose 1 EA; Start 04/28/17 at 02:00 Insulin Aspart (Novolog Insulin Pen) NOVOLOG *MODERATE* ALGORI... Q4 SC Last administered on 04/30/17 08:49; Admin Dose 6 UNIT; Start 04/27/17 at 17:00 Clopidogrel Bisulfate (plaVIX) 75 mg DAILY PO Last administered on 04/30/17 08 :42; Admin Dose 75 MG; Start 04/28/17 at 09:00 Exemestane (Aromasin) 25 mg DAILY GTB Last administered on 04/30/17 08:46; Admin Dose 25 MG; Start 04/28/17 at 09:00 Levetiracetam (Keppra Liquid) 500 mg BID GTB Last administered on 04/30/17 08: 42; Admin Dose 500 MG; Start 04/27/17 at 21:00 Miscellaneous Information 1 ea NOTE XX ; Start 04/27/17 at 16:30 Glucose (Glutose) 15 gm Q15M PRN PO DECREASED GLUCOSE; Start 04/27/17 at 16:30 Glucose (Glutose) 22.5 gm Q15M PRN PO DECREASED GLUCOSE; Start 04/27/17 at 16: 30 Dextrose (D50w Syringe) 25 ml Q15M PRN IV DECREASED GLUCOSE; Start 04/27/17 at 16:30 Dextrose (D50w Syringe) 50 ml Q15M PRN IV DECREASED GLUCOSE; Start 04/27/17 at 16:30 Glucagon (Glucagen) 1 mg Q15M PRN IM DECREASED GLUCOSE; Start 04/27/17 at 16:30 Glucose 15 gm 15 gm Q15M PRN BUCCAL DECREASED GLUCOSE; Start 04/27/17 at 16:30 Vancomycin HCl 750 mg/Dextrose/ Water 150 ml @ 75 mls/hr Q24H IVPB Last administered on 04/30/17 02:08; Admin Dose 75 MLS/HR; Start 04/28/17 at 01:00 Piperacillin Sod/ Tazobactam Sod 3.375 gm/Dextrose 100 ml @ 200 mls/hr Q6 IVPB Last administered on 04/30/17 06:00; Admin Dose 200 MLS/HR; Start 04/28/17 at 00:00 Dextrose (D5W) 1,000 ml @ 75 mls/hr [id number] IV Last administered on 04/30/17 06:00; Admin Dose 75 MLS/HR; Start 04/28/17 at 15:00 Hydralazine HCl 10 mg 10 mg Q6H PRN IV ELEVATED BLOOD PRESSURE; Start 04/29/17 at 12:30 Potassium Chloride (KCl 40 MEQ/250 ML NS) 250 ml @ 62.5 mls/hr Q4H IVPB Last administered on 04/30/17 10:07; Admin Dose 62.5 MLS/HR; Start 04/30/17 at 10:00 ; Stop 04/30/17 at 17:59 Insulin Aspart (Novolog Insulin Pen) 10 unit Q6 SC ; Start 04/30/17 at 12:00 Insulin Glargine (Lantus) 32 unit DAILY@20 SC ; Start 04/30/17 at 20:00 Miscellaneous Information (*Rx Drug Level Order Reminder*) VANCOMYCIN TROUGH ON @ 00 ONCE ONCE XX ; Start 05/01/17 at 00:00; Stop 05/01/17 at 00:01 Assessment/Plan Chief Complaint/Hosp Course IMPRESSION: 1. Hypoxemic respiratory failure. Improving hypoxemia and leukocytosis 2. Possible aspiration pneumonitis. 3. History of cerebrovascular accident with dysphagia. 4. Remote history of breast cancer. PLAN: The patient will require: 1. Continued supplemental O2. 2. Pulmonary toilet. 3. NPO. 4. Broad-spectrum antibiotic coverage. 5. Glycemic management. 6. Deep venous thrombosis and gastrointestinal prophylaxis. Overall prognosis very poor. Patient might benefit from palliative care evaluation. Problems: MOSES ORNELAS MD, [facility] Apr 30, 2017 11:41
--- NOTE | 2017-04-30 12:57 | CONS ---
Date/Time of Note Date/Time of Note DATE: 04/30/17 TIME: 12:56 Assessment/Plan Assessment/Plan Chief Complaint/Hosp Course No acute events per report. Noncommunicative, lying comfortably in bed T-max 100.3 T-current 98.8 pulse 85 respirations 18 blood pressure 149/68 saturation 98 on 6 L nasal cannula WBC 10.6 H&H 11.2 and 36.4 platelets 164 neutrophils 77.2 BUN 19 creatinine 0.64 Microbiology: Blood cultures remain negative, urine culture growing enterococcus species Antibiotics: Vancomycin, Zosyn Indwelling's: PEG, Still Physical examination: Fragile well-developed elderly woman in no distress. Head : Atraumatic normocephalic, Sclerae anicteric, bugle mucosa dry. Neck is obese , trachea midline. Chest rise symmetrical breath sounds diminished bases with scattered crackles. Heart: S1-S2. Abdomen soft bowel sounds present. Extremities without cyanosis Assessment: 1. Sepsis with fevers and leukocytosis 2. Urinary tract infection 3. Dysphasia, possibly ongoing aspiration 4. History of CVA 5. History of breast cancer Plan: Patient remains stable, continue present care, antibiotics, aspiration precautions, follow recommendations of consultants Problems: Consultation Date/Type/Reason Admit Date/Time Apr 27, 2017 at 13:31 Initial Consult Date 04/28/17 Type of Consultation: id Referring Provider: FLORI DIAL Exam/Review of Systems Vital Signs Vitals Vital Signs Date Time Temp Pulse Resp B/P Pulse Ox O2 Delivery O2 Flow Rate FiO2 04/30/17 12:06 98.8 85 18 149/68 98 04/30/17 09:30 Non Rebreather 6.0 04/29/17 08:26 100 Intake and Output 04/29/17 04/29/17 04/30/17 15:00 23:00 07:00 Intake Total 1860 ml 2070 ml Output Total 700 ml 1000 ml Balance 1160 ml 1070 ml Results Result Diagram: 04/30/17 0643 04/30/17 0643 Results 24 hrs Laboratory Tests Test 04/29/17 17:27 04/29/17 20:26 04/30/17 00:52 04/30/17 05:55 Bedside Glucose 151 180 212 193 Test 04/30/17 06:43 04/30/17 07:00 04/30/17 08:47 04/30/17 12:17 White Blood Count 10.6 Red Blood Count 3.87 L Hemoglobin 11.2 L Hematocrit 36.4 L Mean Corpuscular Volume 94.1 Mean Corpuscular Hemoglobin 28.9 L Mean Corpuscular Hemoglobin Concent 30.8 L Red Cell Distribution Width 13.2 Platelet Count 164 Mean Platelet Volume 12.7 H Neutrophils % 77.2 H Lymphocytes % 14.9 L Monocytes % 4.2 Eosinophils % 2.8 Basophils % 0.5 Nucleated Red Blood Cells % 0.0 Neutrophils # 8.2 H Lymphocytes # 1.6 Monocytes # 0.5 Eosinophils # 0.3 Basophils # 0.1 Nucleated Red Blood Cells # 0.0 Sodium Level 142 Potassium Level 3.0 L Chloride Level 105 Carbon Dioxide Level 32 H Anion Gap 8 Blood Urea Nitrogen 19 # Creatinine 0.64 Glucose Level 199 Calcium Level 7.5 L Blood Gas Specimen Source Blood arterial Arterial Blood Date Drawn 04/30/2017 7:50:20 AM Arterial Blood pH (Temp corrected) 7.482 H Arterial Blood pCO2 (Temp correct) 40.1 Arterial Blood pO2 (Temp corrected) 102.4 H Arterial Blood HCO3 29.3 H Arterial Blood Base Excess 5.5 H Arterial Blood Oxygen Saturation 97.4 Jef Test ACCEPTAB Arterial Blood Gas Puncture Site Left Radial Arterial Blood Carboxyhemoglobin 0.3 Arterial Blood Methemoglobin 0.2 Blood Gas A-a O2 Differential 129.5 H Oxyhemoglobin Percent 96.9 Total Hemoglobin 11.9 L Blood Gas Temperature 37.0 Blood Gas Modality MASK - SIMPLE FiO2 39.0 Blood Gas Notified Whom JLD Blood Gas Notified Time 04/30/2017 8:25:50 AM Bedside Glucose 223 H 174 Medications Medications Current Medications Ondansetron HCl (Zofran Inj) 4 mg Q6H PRN IV NAUSEA AND/OR VOMITING; Start at 16:00 Acetaminophen (Tylenol Tab) 650 mg Q6H PRN PO PAIN LEVEL 1-3 OR FEVER Last administered on 04/30/17t 08:43; Admin Dose 650 MG; Start 04/27/17 at 16:00 Acetaminophen/ Hydrocodone Bitart ([place] (5/325)) 1 tab Q6H PRN PO MODERATE PAIN LEVEL 4-6; Start 04/27/17 at 16:00 Morphine Sulfate (morphine) 2 mg Q4H PRN IV SEVERE PAIN LEVEL 7-10; Start 04/27 at 16:00 Docusate Sodium (Colace) 100 mg Q12H PRN PO CONSTIPATION; Start 04/27/17 at 16: 00 Magnesium Hydroxide (Milk Of Mag) 30 ml DAILY PRN PO CONSTIPATION; Start at 16:00 Famotidine (Pepcid Iv) 20 mg Q12 IV Last administered on 04/30/17 08:42; Admin Dose 20 MG; Start 04/27/17 at 21:00 Heparin Sodium (Porcine) (Heparin (5000 Units/0.5 ml)) 5,000 unit Q12 SC Last administered on 04/30/17 08:48; Admin Dose 5,000 UNIT; Start 04/27/17 at 21:00 Lorazepam (Ativan) 0.5 mg Q6H PRN IV ANXIETY Last administered on 04/29/17 20: 29; Admin Dose 0.5 MG; Start 04/27/17 at 16:00 Vancomycin HCl (Vanco Iv Per Pharmacy) VANCOMYCIN PER PHARMACY NOTE XX ; Start 04/27/17 at 16:00 Nitroglycerin (Nitroglycerin (Sl Tab) 0.4 Mg) 1 tab Q5M PRN SL ANGINA; Start at 16:00 Diagnostic Test (Pha) (Accu-Chek) 1 ea 02 XX Last administered on 04/30/17 02: 08; Admin Dose 1 EA; Start 04/28/17 at 02:00 Insulin Aspart (Novolog Insulin Pen) NOVOLOG *MODERATE* ALGORI... Q4 SC Last administered on 04/30/17 12:24; Admin Dose 2 UNIT; Start 04/27/17 at 17:00 Clopidogrel Bisulfate (plaVIX) 75 mg DAILY PO Last administered on 04/30/17 08 :42; Admin Dose 75 MG; Start 04/28/17 at 09:00 Exemestane (Aromasin) 25 mg DAILY GTB Last administered on 04/30/17 08:46; Admin Dose 25 MG; Start 04/28/17 at 09:00 Levetiracetam (Keppra Liquid) 500 mg BID GTB Last administered on 04/30/17 08: 42; Admin Dose 500 MG; Start 04/27/17 at 21:00 Miscellaneous Information 1 ea NOTE XX ; Start 04/27/17 at 16:30 Glucose (Glutose) 15 gm Q15M PRN PO DECREASED GLUCOSE; Start 04/27/17 at 16:30 Glucose (Glutose) 22.5 gm Q15M PRN PO DECREASED GLUCOSE; Start 04/27/17 at 16: 30 Dextrose (D50w Syringe) 25 ml Q15M PRN IV DECREASED GLUCOSE; Start 04/27/17 at 16:30 Dextrose (D50w Syringe) 50 ml Q15M PRN IV DECREASED GLUCOSE; Start 04/27/17 at 16:30 Glucagon (Glucagen) 1 mg Q15M PRN IM DECREASED GLUCOSE; Start 04/27/17 at 16:30 Glucose 15 gm 15 gm Q15M PRN BUCCAL DECREASED GLUCOSE; Start 04/27/17 at 16:30 Vancomycin HCl 750 mg/Dextrose/ Water 150 ml @ 75 mls/hr Q24H IVPB Last administered on 04/30/17 02:08; Admin Dose 75 MLS/HR; Start 04/28/17 at 01:00 Piperacillin Sod/ Tazobactam Sod 3.375 gm/Dextrose 100 ml @ 200 mls/hr Q6 IVPB Last administered on 04/30/17 12:09; Admin Dose 200 MLS/HR; Start 04/28/17 at 00:00 Dextrose (D5W) 1,000 ml @ 75 mls/hr [id number] IV Last administered on 04/30/17 06:00; Admin Dose 75 MLS/HR; Start 04/28/17 at 15:00 Hydralazine HCl 10 mg 10 mg Q6H PRN IV ELEVATED BLOOD PRESSURE; Start 04/29/17 at 12:30 Potassium Chloride (KCl 40 MEQ/250 ML NS) 250 ml @ 62.5 mls/hr Q4H IVPB Last administered on 04/30/17 10:07; Admin Dose 62.5 MLS/HR; Start 04/30/17 at 10:00 ; Stop 04/30/17 at 17:59 Insulin Aspart (Novolog Insulin Pen) 10 unit Q6 SC Last administered on 12:25; Admin Dose 10 UNIT; Start 04/30/17 at 12:00 Insulin Glargine (Lantus) 32 unit DAILY@20 SC ; Start 04/30/17 at 20:00 Miscellaneous Information (*Rx Drug Level Order Reminder*) VANCOMYCIN TROUGH ON @ 00 ONCE ONCE XX ; Start 05/01/17 at 00:00; Stop 05/01/17 at 00:01 KELLEY ALVES NP Apr 30, 2017 12:57
--- NOTE | 2017-04-30 16:43 | CONS ---
Date/Time of Note Date/Time of Note DATE: 04/30/17 TIME: 16:35 Assessment/Plan Assessment/Plan Additional Assessment/Plan 81 yo Female 1) Hypernatremia 2) Ingrid, Pre-Renal 3) Recent large left sided stroke 4) DNR 5) Hyperglycemia 6) HTN, Chronic 7) Protein calorie malnutrition, Severe 8) Hypocalcemia, Dilutional, improved after correction with albumin Cont Free H20 through Gtube DC IVFs, On enteral feeding Check Ionized Ca Repeat labs in am Cont to monitor Is and Os, UO, Electrolytes and renal function Na improving, Cr stable and improved. Will cont to follow closely. Consultation Date/Type/Reason Admit Date/Time Apr 27, 2017 at 13:31 Initial Consult Date 04/28/17 Type of Consultation: Renal Referring Provider: FLORI DIAL 24 HR Interval Summary Free Text/Dictation No new events reported. Constitutional: requiring O2 Exam/Review of Systems Vital Signs Vitals Vital Signs Date Time Temp Pulse Resp B/P Pulse Ox O2 Delivery O2 Flow Rate FiO2 04/30/17 16:00 85 04/30/17 16:00 98.1 20 139/73 98 04/30/17 14:29 6.0 04/30/17 09:30 Simple Mask 04/29/17 08:26 100 Intake and Output 04/29/17 04/29/17 04/30/17 15:00 23:00 07:00 Intake Total 1860 ml 2070 ml Output Total 700 ml 1000 ml Balance 1160 ml 1070 ml Exam Constitutional: alert, frail Eyes: EOMI ENMT: mucosa pink and moist Neck: No jvd Respiratory: crackles/rales, No diminished breath sounds Cardiovascular: regular rate and rhythm, No edema Gastrointestinal: non-tender, soft Neurological: focal weakness, lethargic Skin: No diaphoresis Results Result Diagram: 04/30/17 0643 04/30/17 0643 Results 24 hrs Laboratory Tests Test 04/29/17 17:27 04/29/17 20:26 04/30/17 00:52 04/30/17 05:55 Bedside Glucose 151 180 212 193 Test 04/30/17 06:43 04/30/17 07:00 04/30/17 08:47 04/30/17 12:17 White Blood Count 10.6 Red Blood Count 3.87 L Hemoglobin 11.2 L Hematocrit 36.4 L Mean Corpuscular Volume 94.1 Mean Corpuscular Hemoglobin 28.9 L Mean Corpuscular Hemoglobin Concent 30.8 L Red Cell Distribution Width 13.2 Platelet Count 164 Mean Platelet Volume 12.7 H Neutrophils % 77.2 H Lymphocytes % 14.9 L Monocytes % 4.2 Eosinophils % 2.8 Basophils % 0.5 Nucleated Red Blood Cells % 0.0 Neutrophils # 8.2 H Lymphocytes # 1.6 Monocytes # 0.5 Eosinophils # 0.3 Basophils # 0.1 Nucleated Red Blood Cells # 0.0 Sodium Level 142 Potassium Level 3.0 L Chloride Level 105 Carbon Dioxide Level 32 H Anion Gap 8 Blood Urea Nitrogen 19 # Creatinine 0.64 Glucose Level 199 Calcium Level 7.5 L Blood Gas Specimen Source Blood arterial Arterial Blood Date Drawn 04/30/2017 7:50:20 AM Arterial Blood pH (Temp corrected) 7.482 H Arterial Blood pCO2 (Temp correct) 40.1 Arterial Blood pO2 (Temp corrected) 102.4 H Arterial Blood HCO3 29.3 H Arterial Blood Base Excess 5.5 H Arterial Blood Oxygen Saturation 97.4 Jef Test ACCEPTAB Arterial Blood Gas Puncture Site Left Radial Arterial Blood Carboxyhemoglobin 0.3 Arterial Blood Methemoglobin 0.2 Blood Gas A-a O2 Differential 129.5 H Oxyhemoglobin Percent 96.9 Total Hemoglobin 11.9 L Blood Gas Temperature 37.0 Blood Gas Modality MASK - SIMPLE FiO2 39.0 Blood Gas Notified Whom JLD Blood Gas Notified Time 04/30/2017 8:25:50 AM Bedside Glucose 223 H 174 Imaging Free Text/Dictation PROCEDURE: XR Chest. CLINICAL INDICATION: Shortness of breath. TECHNIQUE: Single frontal view. COMPARISON: 04/27/2017. FINDINGS: There is mild atelectasis at the lung bases. There are low lung volumes. Heart is enlarged. Surgical clips are present in the right axilla and right upper quadrant of the abdomen. There is no pleural effusion. There is no pneumothorax. There is thoracic scoliosis convex right superiorly and convex left inferiorly. IMPRESSION: 1. No change from 04/27/2017. RPTAT: QQ .Devante Newman MD, MD Date Time Electronically viewed and signed by .Devante Newman MD, on 04/30/2017 09:00 Medications Medications Current Medications Ondansetron HCl (Zofran Inj) 4 mg Q6H PRN IV NAUSEA AND/OR VOMITING; Start at 16:00 Acetaminophen (Tylenol Tab) 650 mg Q6H PRN PO PAIN LEVEL 1-3 OR FEVER Last administered on 04/30/17 08:43; Admin Dose 650 MG; Start 04/27/17 at 16:00 Acetaminophen/ Hydrocodone Bitart ([place] (5/325)) 1 tab Q6H PRN PO MODERATE PAIN LEVEL 4-6; Start 04/27/17 at 16:00 Morphine Sulfate (morphine) 2 mg Q4H PRN IV SEVERE PAIN LEVEL 7-10; Start 04/27 at 16:00 Docusate Sodium (Colace) 100 mg Q12H PRN PO CONSTIPATION; Start 04/27/17 at 16: 00 Magnesium Hydroxide (Milk Of Mag) 30 ml DAILY PRN PO CONSTIPATION; Start at 16:00 Famotidine (Pepcid Iv) 20 mg Q12 IV Last administered on 04/30/17 08:42; Admin Dose 20 MG; Start 04/27/17 at 21:00 Heparin Sodium (Porcine) (Heparin (5000 Units/0.5 ml)) 5,000 unit Q12 SC Last administered on 04/30/17 08:48; Admin Dose 5,000 UNIT; Start 04/27/17 at 21:00 Lorazepam (Ativan) 0.5 mg Q6H PRN IV ANXIETY Last administered on 04/29/17 20: 29; Admin Dose 0.5 MG; Start 04/27/17 at 16:00 Vancomycin HCl (Vanco Iv Per Pharmacy) VANCOMYCIN PER PHARMACY NOTE XX ; Start 04/27/17 at 16:00 Nitroglycerin (Nitroglycerin (Sl Tab) 0.4 Mg) 1 tab Q5M PRN SL ANGINA; Start at 16:00 Diagnostic Test (Pha) (Accu-Chek) 1 ea 02 XX Last administered on 04/30/17 02: 08; Admin Dose 1 EA; Start 04/28/17 at 02:00 Insulin Aspart (Novolog Insulin Pen) NOVOLOG *MODERATE* ALGORI... Q4 SC Last administered on 04/30/17 12:24; Admin Dose 2 UNIT; Start 04/27/17 at 17:00 Clopidogrel Bisulfate (plaVIX) 75 mg DAILY PO Last administered on 04/30/17 08 :42; Admin Dose 75 MG; Start 04/28/17 at 09:00 Exemestane (Aromasin) 25 mg DAILY GTB Last administered on 04/30/17 08:46; Admin Dose 25 MG; Start 04/28/17 at 09:00 Levetiracetam (Keppra Liquid) 500 mg BID GTB Last administered on 04/30/17 08: 42; Admin Dose 500 MG; Start 04/27/17 at 21:00 Miscellaneous Information 1 ea NOTE XX ; Start 04/27/17 at 16:30 Glucose (Glutose) 15 gm Q15M PRN PO DECREASED GLUCOSE; Start 04/27/17 at 16:30 Glucose (Glutose) 22.5 gm Q15M PRN PO DECREASED GLUCOSE; Start 04/27/17 at 16: 30 Dextrose (D50w Syringe) 25 ml Q15M PRN IV DECREASED GLUCOSE; Start 04/27/17 at 16:30 Dextrose (D50w Syringe) 50 ml Q15M PRN IV DECREASED GLUCOSE; Start 04/27/17 at 16:30 Glucagon (Glucagen) 1 mg Q15M PRN IM DECREASED GLUCOSE; Start 04/27/17 at 16:30 Glucose 15 gm 15 gm Q15M PRN BUCCAL DECREASED GLUCOSE; Start 04/27/17 at 16:30 Vancomycin HCl 750 mg/Dextrose/ Water 150 ml @ 75 mls/hr Q24H IVPB Last administered on 04/30/17 02:08; Admin Dose 75 MLS/HR; Start 04/28/17 at 01:00 Piperacillin Sod/ Tazobactam Sod 3.375 gm/Dextrose 100 ml @ 200 mls/hr Q6 IVPB Last administered on 04/30/17 12:09; Admin Dose 200 MLS/HR; Start 04/28/17 at 00:00 Dextrose (D5W) 1,000 ml @ 75 mls/hr [id number] IV Last administered on 04/30/17 06:00; Admin Dose 75 MLS/HR; Start 04/28/17 at 15:00 Hydralazine HCl 10 mg 10 mg Q6H PRN IV ELEVATED BLOOD PRESSURE; Start 04/29/17 at 12:30 Potassium Chloride (KCl 40 MEQ/250 ML NS) 250 ml @ 62.5 mls/hr Q4H IVPB Last administered on 04/30/17 14:23; Admin Dose 62.5 MLS/HR; Start 04/30/17 at 10:00 ; Stop 04/30/17 at 17:59 Insulin Aspart (Novolog Insulin Pen) 10 unit Q6 SC Last administered on 12:25; Admin Dose 10 UNIT; Start 04/30/17 at 12:00 Insulin Glargine (Lantus) 32 unit DAILY@20 SC ; Start 04/30/17 at 20:00 Miscellaneous Information (*Rx Drug Level Order Reminder*) VANCOMYCIN TROUGH ON @ 00 ONCE ONCE XX ; Start 05/01/17 at 00:00; Stop 05/01/17 at 00:01 PARAG RESENDIZ MD Apr 30, 2017 16:43
[2017-04-30] MEDS: FAMOTIDINE 20 MG TAB GTB SCH (20:30)
[2017-04-30] MEDS: INSULIN GLARGINE [LANtus] 3 ML PEN SC SCH (20:36)
[2017-05-01] VITALS (13 sets, daily range): BP systolic 127–155; BP diastolic 60–74; PULSE 91–99; RESP 20–21
[2017-05-01] MEDS: PIPERACILLIN/TAZO 3.375 GM in DEXTROSE 5% 100 ML IVPB SCH ×5 (00:32→23:37)
[2017-05-01] MEDS: INSULIN ASPART [NOVOLOG] 3 ML PEN SC SCH ×11 (00:35→23:45)
[2017-05-01] MEDS: VANCOMYCIN 750 MG in DEXTROSE 5% 150 ML IVPB SCH (01:00)
[2017-05-01] MEDS: ACCU-CHEK XX SCH (02:00)
[2017-05-01] MEDS: VANCOMYCIN 1 GM in NS 250 ML IVPB SCH ×2 (03:01→14:42)
[2017-05-01 07:33] LABS: BASOPHILS % 0.4 % (0.0-2.0); EOSINOPHILS # 0.3 10^3/ul (0.0-0.5); EOSINOPHILS % 2.7 % (0.0-7.0); HEMATOCRIT 36.5 % (37.0-47.0); HEMOGLOBIN 11.3 g/dl (12.0-16.0); LYMPHOCYTES # 1.5 10^3/ul (0.8-2.9); MEAN CORPUSCULAR HEMOGLOBIN 28.8 pg (29.0-33.0); MEAN CORPUSCULAR VOLUME 92.9 fl (82.0-101.0); MEAN PLATELET VOLUME 12.6 fl (7.4-10.4); MONOCYTE # 0.5 10^3/ul (0.3-0.9); MONOCYTES % 5.3 % (0.0-11.0); NEUTROPHIL # 7.7 10^3/ul (1.6-7.5); NEUTROPHILS % 75.8 % (39.0-77.0); PLATELET COUNT 198 10^3/UL (140-415); RED BLOOD COUNT 3.93 10^6/ul (4.20-5.40); RED CELL DISTRIBUTION WIDTH 13.2 % (11.5-14.5); WHITE BLOOD COUNT 10.2 10^3/ul (4.8-10.8)
[2017-05-01 08:19] LABS: CALCIUM 8.3 mg/dl (8.4-10.2); CREATININE 0.64 mg/dl (0.44-1.00)
[2017-05-01] MEDS: EXEMESTANE 25 MG TAB GTB SCH (08:33)
[2017-05-01] MEDS: HEPARIN 5,000 UNIT/0.5 ML VIAL SC SCH ×2 (08:34→20:26)
[2017-05-01] MEDS: FAMOTIDINE 20 MG TAB GTB SCH ×2 (08:34→20:23)
[2017-05-01] MEDS: CLOPIDOGREL 75 MG TAB PO SCH (08:34)
[2017-05-01] MEDS: LEVETIRACETAM (100 MG/ML) 5ML CUP GTB SCH ×2 (08:34→20:23)
--- NOTE | 2017-05-01 10:28 | PN ---
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 1. Sepsis - sec to UTI and URI -Shortness of breath/respiratory distress slowly improving-still on O2 supplementation. -continue on oxygen supplementation. - broad spectrum antibiotics as well given her leukocytosis (improved) and elevated temperature. -Tylenol p.r.n. pain or fever. 2. Hypernatremia -resolved now -Continue free water through G-tube as well. -Follow-up renal recommendations 3. Hyperglycemia. Sugars improved now. Again, there is no elevated anion gap, lactic acid was normal as well. A1c = 8.4 -continue subcu insulin, aspart and Lantus 4. Hypertension. Again, continue to monitor for now. 5. High cholesterol. Follow up lipid panel. 6. History of breast cancer. Continue to monitor for now. Again, patient is a do not resuscitate. We will try to talk to family as well about hospice, likely hospice at the senior care facility Problems: Subjective 24 Hr Interval Summary Free Text/Dictation Patient on 6 L nasal cannula oxygen now. Exam/Review of Systems Vital Signs Vitals Vital Signs Date Time Temp Pulse Resp B/P Pulse Ox O2 Delivery O2 Flow Rate FiO2 05/01/17 08:05 97 05/01/17 07:23 98.5 20 145/66 100 05/01/17 04:00 Nasal Cannula 6.0 04/29/17 08:26 100 Intake and Output 04/30/17 04/30/17 05/01/17 15:00 23:00 07:00 Intake Total 575 ml 1295 ml 1090 ml Output Total 1500 ml 600 ml Balance 575 ml -205 ml 490 ml Exam GENERAL: Patient lying in bed, opens eyes, on nasal cannula HEENT: Pupils equal, round, react to light, Extraocular muscles intact. NECK: Supple. LUNGS: less distant breath sounds bilaterally. CARDIOVASCULAR: S1, S2 heard. ABDOMEN: Soft, nontender, nondistended. Normal bowel sounds. No rebound or guarding. MUSCULOSKELETAL: no lower extremity bilaterally. NEUROLOGIC: Unable to perform due to the patient's lethargy. Results Result Diagram: 05/01/17 0705 05/01/17 0702 Results 24 hrs Laboratory Tests Test 04/30/17 12:17 04/30/17 17:51 04/30/17 20:28 05/01/17 00:22 Bedside Glucose 174 137 147 Vancomycin Level Trough < 5.0 L Test 05/01/17 00:24 05/01/17 01:28 05/01/17 05:26 05/01/17 06:17 Bedside Glucose 172 143 185 172 Test 05/01/17 07:02 05/01/17 07:05 05/01/17 08:29 Sodium Level 140 Potassium Level 4.0 Chloride Level 107 Carbon Dioxide Level 28 Anion Gap 9 Blood Urea Nitrogen 17 Creatinine 0.64 Glucose Level 215 Calcium Level 8.3 L White Blood Count 10.2 Red Blood Count 3.93 L Hemoglobin 11.3 L Hematocrit 36.5 L Mean Corpuscular Volume 92.9 Mean Corpuscular Hemoglobin 28.8 L Mean Corpuscular Hemoglobin Concent 31.0 L Red Cell Distribution Width 13.2 Platelet Count 198 # Mean Platelet Volume 12.6 H Neutrophils % 75.8 Lymphocytes % 15.0 Monocytes % 5.3 Eosinophils % 2.7 Basophils % 0.4 Nucleated Red Blood Cells % 0.0 Neutrophils # 7.7 H Lymphocytes # 1.5 Monocytes # 0.5 Eosinophils # 0.3 Basophils # 0.0 Nucleated Red Blood Cells # 0.0 Ionized Calcium (Measured) 1.1 Bedside Glucose 175 Medications Medications Current Medications Ondansetron HCl (Zofran Inj) 4 mg Q6H PRN IV NAUSEA AND/OR VOMITING; Start at 16:00 Acetaminophen (Tylenol Tab) 650 mg Q6H PRN PO PAIN LEVEL 1-3 OR FEVER Last administered on 04/30/17t 08:43; Admin Dose 650 MG; Start 04/27/17 at 16:00 Acetaminophen/ Hydrocodone Bitart ([place] (5/325)) 1 tab Q6H PRN PO MODERATE PAIN LEVEL 4-6; Start 04/27/17 at 16:00 Morphine Sulfate (morphine) 2 mg Q4H PRN IV SEVERE PAIN LEVEL 7-10; Start 04/27 at 16:00 Docusate Sodium (Colace) 100 mg Q12H PRN PO CONSTIPATION; Start 04/27/17 at 16: 00 Magnesium Hydroxide (Milk Of Mag) 30 ml DAILY PRN PO CONSTIPATION; Start at 16:00 Heparin Sodium (Porcine) (Heparin (5000 Units/0.5 ml)) 5,000 unit Q12 SC Last administered on 05/01/17 08:34; Admin Dose 5,000 UNIT; Start 04/27/17 at 21:00 Lorazepam (Ativan) 0.5 mg Q6H PRN IV ANXIETY Last administered on 04/29/17 20: 29; Admin Dose 0.5 MG; Start 04/27/17 at 16:00 Vancomycin HCl (Vanco Iv Per Pharmacy) VANCOMYCIN PER PHARMACY NOTE XX ; Start 04/27/17 at 16:00 Nitroglycerin (Nitroglycerin (Sl Tab) 0.4 Mg) 1 tab Q5M PRN SL ANGINA; Start at 16:00 Diagnostic Test (Pha) (Accu-Chek) 1 ea 02 XX Last administered on 04/30/17 02: 08; Admin Dose 1 EA; Start 04/28/17 at 02:00 Insulin Aspart (Novolog Insulin Pen) NOVOLOG *MODERATE* ALGORI... Q4 SC Last administered on 05/01/17 08:32; Admin Dose 2 UNIT; Start 04/27/17 at 17:00 Clopidogrel Bisulfate (plaVIX) 75 mg DAILY PO Last administered on 05/01/17 08 :34; Admin Dose 75 MG; Start 04/28/17 at 09:00 Exemestane (Aromasin) 25 mg DAILY GTB Last administered on 05/01/17 08:33; Admin Dose 25 MG; Start 04/28/17 at 09:00 Levetiracetam (Keppra Liquid) 500 mg BID GTB Last administered on 05/01/17 08: 34; Admin Dose 500 MG; Start 04/27/17 at 21:00 Miscellaneous Information 1 ea NOTE XX ; Start 04/27/17 at 16:30 Glucose (Glutose) 15 gm Q15M PRN PO DECREASED GLUCOSE; Start 04/27/17 at 16:30 Glucose (Glutose) 22.5 gm Q15M PRN PO DECREASED GLUCOSE; Start 04/27/17 at 16: 30 Dextrose (D50w Syringe) 25 ml Q15M PRN IV DECREASED GLUCOSE; Start 04/27/17 at 16:30 Dextrose (D50w Syringe) 50 ml Q15M PRN IV DECREASED GLUCOSE; Start 04/27/17 at 16:30 Glucagon (Glucagen) 1 mg Q15M PRN IM DECREASED GLUCOSE; Start 04/27/17 at 16:30 Glucose 15 gm 15 gm Q15M PRN BUCCAL DECREASED GLUCOSE; Start 04/27/17 at 16:30 Piperacillin Sod/ Tazobactam Sod/ Dextrose (Zosyn/D5W) 100 ml @ 200 mls/hr Q6 IVPB Last administered on 05/01/17 05:54; Admin Dose 200 MLS/HR; Start at 00:00 Hydralazine HCl (Apresoline) 10 mg Q6H PRN IV ELEVATED BLOOD PRESSURE; Start at 12:30 Insulin Aspart (Novolog Insulin Pen) 10 unit Q6 SC Last administered on 06:20; Admin Dose 10 UNIT; Start 04/30/17 at 12:00 Insulin Glargine (Lantus) 32 unit DAILY@20 SC Last administered on 04/30/17 20 :36; Admin Dose 32 UNIT; Start 04/30/17 at 20:00 Famotidine 20 mg 20 mg Q12 GTB Last administered on 05/01/17 08:34; Admin Dose 20 MG; Start 04/30/17 at 21:00 Vancomycin HCl (Vancocin) 250 ml @ 125 mls/hr Q12H IVPB Last administered on 03:01; Admin Dose 125 MLS/HR; Start 05/01/17 at 03:00 Miscellaneous Information (*Rx Drug Level Order Reminder*) VANCOMYCIN TROUGH LEVEL... ONCE ONCE XX ; Start 05/02/17 at 14:00; Stop 05/02/17 at 14:01 FLORI DIAL May 01, 2017 10:28
--- NOTE | 2017-05-01 10:52 | CONS ---
Date/Time of Note Date/Time of Note DATE: 05/01/17 TIME: 10:51 Consult Date/Type/Reason Admit Date/Time Apr 27, 2017 at 13:31 Initial Consult Date 04/28/17 Type of Consultation: pulm Ordering Provider: FLORI DIAL Subjective Opens eyes to tactile stimuli. Objective Vital Signs Date Time Temp Pulse Resp B/P Pulse Ox O2 Delivery O2 Flow Rate FiO2 05/01/17 10:35 5.0 05/01/17 08:30 Nasal Cannula 05/01/17 08:05 97 05/01/17 07:23 98.5 20 145/66 100 04/29/17 08:26 100 Intake and Output 04/30/17 04/30/17 05/01/17 15:00 23:00 07:00 Intake Total 575 ml 1295 ml 1090 ml Output Total 1500 ml 600 ml Balance 575 ml -205 ml 490 ml Exam OBJECTIVE DATA: VITAL SIGNS: Elderly lady with hemiplegia on nasal cannula oxygen. NECK: Supple. No JVD. No lymphadenopathy. CARDIAC: S1, S2. No added sounds or murmurs. CHEST: Diminished air entry bilaterally. ABDOMEN: Soft, nontender. No guarding or rebound. EXTREMITIES: No cyanosis, clubbing, or edema. NEUROLOGIC: Generalized weakness. Results/Medications Result Diagram: 05/01/17 0705 05/01/17 0702 Results 24 hrs Laboratory Tests Test 04/30/17 12:17 04/30/17 17:51 04/30/17 20:28 05/01/17 00:22 Bedside Glucose 174 137 147 Vancomycin Level Trough < 5.0 L Test 05/01/17 00:24 05/01/17 01:28 05/01/17 05:26 05/01/17 06:17 Bedside Glucose 172 143 185 172 Test 05/01/17 07:02 05/01/17 07:05 05/01/17 08:29 Sodium Level 140 Potassium Level 4.0 Chloride Level 107 Carbon Dioxide Level 28 Anion Gap 9 Blood Urea Nitrogen 17 Creatinine 0.64 Glucose Level 215 Calcium Level 8.3 L White Blood Count 10.2 Red Blood Count 3.93 L Hemoglobin 11.3 L Hematocrit 36.5 L Mean Corpuscular Volume 92.9 Mean Corpuscular Hemoglobin 28.8 L Mean Corpuscular Hemoglobin Concent 31.0 L Red Cell Distribution Width 13.2 Platelet Count 198 # Mean Platelet Volume 12.6 H Neutrophils % 75.8 Lymphocytes % 15.0 Monocytes % 5.3 Eosinophils % 2.7 Basophils % 0.4 Nucleated Red Blood Cells % 0.0 Neutrophils # 7.7 H Lymphocytes # 1.5 Monocytes # 0.5 Eosinophils # 0.3 Basophils # 0.0 Nucleated Red Blood Cells # 0.0 Ionized Calcium (Measured) 1.1 Bedside Glucose 175 Medications Current Medications Ondansetron HCl (Zofran Inj) 4 mg Q6H PRN IV NAUSEA AND/OR VOMITING; Start at 16:00 Acetaminophen (Tylenol Tab) 650 mg Q6H PRN PO PAIN LEVEL 1-3 OR FEVER Last administered on 04/30/17 08:43; Admin Dose 650 MG; Start 04/27/17 at 16:00 Acetaminophen/ Hydrocodone Bitart ([place] (5/325)) 1 tab Q6H PRN PO MODERATE PAIN LEVEL 4-6; Start 04/27/17 at 16:00 Morphine Sulfate (morphine) 2 mg Q4H PRN IV SEVERE PAIN LEVEL 7-10; Start 04/27 at 16:00 Docusate Sodium (Colace) 100 mg Q12H PRN PO CONSTIPATION; Start 04/27/17 at 16: 00 Magnesium Hydroxide (Milk Of Mag) 30 ml DAILY PRN PO CONSTIPATION; Start at 16:00 Heparin Sodium (Porcine) (Heparin (5000 Units/0.5 ml)) 5,000 unit Q12 SC Last administered on 05/01/17 08:34; Admin Dose 5,000 UNIT; Start 04/27/17 at 21:00 Lorazepam (Ativan) 0.5 mg Q6H PRN IV ANXIETY Last administered on 04/29/17 20: 29; Admin Dose 0.5 MG; Start 04/27/17 at 16:00 Vancomycin HCl (Vanco Iv Per Pharmacy) VANCOMYCIN PER PHARMACY NOTE XX ; Start 04/27/17 at 16:00 Nitroglycerin (Nitroglycerin (Sl Tab) 0.4 Mg) 1 tab Q5M PRN SL ANGINA; Start at 16:00 Diagnostic Test (Pha) (Accu-Chek) 1 ea 02 XX Last administered on 04/30/17 02: 08; Admin Dose 1 EA; Start 04/28/17 at 02:00 Clopidogrel Bisulfate (plaVIX) 75 mg DAILY PO Last administered on 05/01/17 08 :34; Admin Dose 75 MG; Start 04/28/17 at 09:00 Exemestane (Aromasin) 25 mg DAILY GTB Last administered on 05/01/17 08:33; Admin Dose 25 MG; Start 04/28/17 at 09:00 Levetiracetam (Keppra Liquid) 500 mg BID GTB Last administered on 05/01/17 08: 34; Admin Dose 500 MG; Start 04/27/17 at 21:00 Miscellaneous Information 1 ea NOTE XX ; Start 04/27/17 at 16:30 Glucose (Glutose) 15 gm Q15M PRN PO DECREASED GLUCOSE; Start 04/27/17 at 16:30 Glucose (Glutose) 22.5 gm Q15M PRN PO DECREASED GLUCOSE; Start 04/27/17 at 16: 30 Dextrose (D50w Syringe) 25 ml Q15M PRN IV DECREASED GLUCOSE; Start 04/27/17 at 16:30 Dextrose (D50w Syringe) 50 ml Q15M PRN IV DECREASED GLUCOSE; Start 04/27/17 at 16:30 Glucagon (Glucagen) 1 mg Q15M PRN IM DECREASED GLUCOSE; Start 04/27/17 at 16:30 Glucose 15 gm 15 gm Q15M PRN BUCCAL DECREASED GLUCOSE; Start 04/27/17 at 16:30 Piperacillin Sod/ Tazobactam Sod/ Dextrose (Zosyn/D5W) 100 ml @ 200 mls/hr Q6 IVPB Last administered on 05/01/17 05:54; Admin Dose 200 MLS/HR; Start at 00:00 Hydralazine HCl (Apresoline) 10 mg Q6H PRN IV ELEVATED BLOOD PRESSURE; Start at 12:30 Insulin Aspart (Novolog Insulin Pen) 10 unit Q6 SC Last administered on 06:20; Admin Dose 10 UNIT; Start 04/30/17 at 12:00 Insulin Glargine (Lantus) 32 unit DAILY@20 SC Last administered on 04/30/17 20 :36; Admin Dose 32 UNIT; Start 04/30/17 at 20:00 Famotidine 20 mg 20 mg Q12 GTB Last administered on 05/01/17 08:34; Admin Dose 20 MG; Start 04/30/17 at 21:00 Vancomycin HCl (Vancocin) 250 ml @ 125 mls/hr Q12H IVPB Last administered on 03:01; Admin Dose 125 MLS/HR; Start 05/01/17 at 03:00 Miscellaneous Information (*Rx Drug Level Order Reminder*) VANCOMYCIN TROUGH LEVEL... ONCE ONCE XX ; Start 05/02/17 at 14:00; Stop 05/02/17 at 14:01 Insulin Aspart (Novolog Insulin Pen) NOVOLOG *MODERATE* ALGORI... Q6 SC ; Start 05/01/17 at 12:00 Assessment/Plan Chief Complaint/Hosp Course IMPRESSION: 1. Hypoxemic respiratory failure. Improving hypoxemia and leukocytosis 2. Possible aspiration pneumonitis. 3. History of cerebrovascular accident with dysphagia. 4. Remote history of breast cancer. PLAN: The patient will require: 1. Continued supplemental O2. 2. Pulmonary toilet. 3. NPO. 4. Broad-spectrum antibiotic coverage. 5. Glycemic management. 6. Deep venous thrombosis and gastrointestinal prophylaxis. Overall prognosis very poor. Patient might benefit from palliative care evaluation. Problems: MOSES ORNELAS MD, [facility] May 01, 2017 10:52
--- NOTE | 2017-05-01 14:17 | CONS ---
Date/Time of Note Date/Time of Note DATE: 05/01/17 TIME: 14:16 Assessment/Plan Assessment/Plan Chief Complaint/Hosp Course No acute events per report. Noncommunicative, lying comfortably in bed, comfortable on nasal cannula, no fevers Microbiology: Blood cultures remain negative, urine culture growing enterococcus species Antibiotics: Vancomycin, Zosyn Indwelling's: PEG, Still Physical examination: Fragile well-developed elderly woman in no distress. Head : Atraumatic normocephalic, Sclerae anicteric, bugle mucosa dry. Neck is obese , trachea midline. Chest rise symmetrical breath sounds diminished bases with scattered crackles. Heart: S1-S2. Abdomen soft bowel sounds present. Extremities without cyanosis Assessment: 1. Sepsis with fevers and leukocytosis 2. Urinary tract infection 3. Dysphasia, possibly ongoing aspiration 4. History of CVA 5. History of breast cancer Plan: Patient remains stable, fevers resolving, continue present care, antibiotics, aspiration precautions, follow recommendations of consultants Problems: Consultation Date/Type/Reason Admit Date/Time Apr 27, 2017 at 13:31 Initial Consult Date 04/28/17 Type of Consultation: id Referring Provider: FLORI DIAL Exam/Review of Systems Vital Signs Vitals Vital Signs Date Time Temp Pulse Resp B/P Pulse Ox O2 Delivery O2 Flow Rate FiO2 05/01/17 12:07 94 05/01/17 11:16 97.8 20 137/72 98 05/01/17 10:35 5.0 05/01/17 08:30 Nasal Cannula 04/29/17 08:26 100 Intake and Output 04/30/17 04/30/17 05/01/17 15:00 23:00 07:00 Intake Total 575 ml 1295 ml 1090 ml Output Total 1500 ml 600 ml Balance 575 ml -205 ml 490 ml Results Result Diagram: 05/01/17 0705 05/01/17 0702 Results 24 hrs Laboratory Tests Test 04/30/17 17:51 04/30/17 20:28 05/01/17 00:22 05/01/17 00:24 Bedside Glucose 137 147 172 Vancomycin Level Trough < 5.0 L Test 05/01/17 01:28 05/01/17 05:26 05/01/17 06:17 05/01/17 07:02 Bedside Glucose 143 185 172 Sodium Level 140 Potassium Level 4.0 Chloride Level 107 Carbon Dioxide Level 28 Anion Gap 9 Blood Urea Nitrogen 17 Creatinine 0.64 Glucose Level 215 Calcium Level 8.3 L Test 05/01/17 07:05 05/01/17 08:29 05/01/17 12:16 White Blood Count 10.2 Red Blood Count 3.93 L Hemoglobin 11.3 L Hematocrit 36.5 L Mean Corpuscular Volume 92.9 Mean Corpuscular Hemoglobin 28.8 L Mean Corpuscular Hemoglobin Concent 31.0 L Red Cell Distribution Width 13.2 Platelet Count 198 # Mean Platelet Volume 12.6 H Neutrophils % 75.8 Lymphocytes % 15.0 Monocytes % 5.3 Eosinophils % 2.7 Basophils % 0.4 Nucleated Red Blood Cells % 0.0 Neutrophils # 7.7 H Lymphocytes # 1.5 Monocytes # 0.5 Eosinophils # 0.3 Basophils # 0.0 Nucleated Red Blood Cells # 0.0 Ionized Calcium (Measured) 1.1 Bedside Glucose 175 187 Medications Medications Current Medications Ondansetron HCl (Zofran Inj) 4 mg Q6H PRN IV NAUSEA AND/OR VOMITING; Start at 16:00 Acetaminophen (Tylenol Tab) 650 mg Q6H PRN PO PAIN LEVEL 1-3 OR FEVER Last administered on 04/30/17 08:43; Admin Dose 650 MG; Start 04/27/17 at 16:00 Acetaminophen/ Hydrocodone Bitart ([place] (5/325)) 1 tab Q6H PRN PO MODERATE PAIN LEVEL 4-6; Start 04/27/17 at 16:00 Morphine Sulfate (morphine) 2 mg Q4H PRN IV SEVERE PAIN LEVEL 7-10; Start 04/27 at 16:00 Docusate Sodium (Colace) 100 mg Q12H PRN PO CONSTIPATION; Start 04/27/17 at 16: 00 Magnesium Hydroxide (Milk Of Mag) 30 ml DAILY PRN PO CONSTIPATION; Start at 16:00 Heparin Sodium (Porcine) (Heparin (5000 Units/0.5 ml)) 5,000 unit Q12 SC Last administered on 05/01/17 08:34; Admin Dose 5,000 UNIT; Start 04/27/17 at 21:00 Lorazepam (Ativan) 0.5 mg Q6H PRN IV ANXIETY Last administered on 04/29/17 20: 29; Admin Dose 0.5 MG; Start 04/27/17 at 16:00 Vancomycin HCl (Vanco Iv Per Pharmacy) VANCOMYCIN PER PHARMACY NOTE XX ; Start 04/27/17 at 16:00 Nitroglycerin (Nitroglycerin (Sl Tab) 0.4 Mg) 1 tab Q5M PRN SL ANGINA; Start at 16:00 Diagnostic Test (Pha) (Accu-Chek) 1 ea 02 XX Last administered on 04/30/17 02: 08; Admin Dose 1 EA; Start 04/28/17 at 02:00 Clopidogrel Bisulfate (plaVIX) 75 mg DAILY PO Last administered on 05/01/17 08 :34; Admin Dose 75 MG; Start 04/28/17 at 09:00 Exemestane (Aromasin) 25 mg DAILY GTB Last administered on 05/01/17 08:33; Admin Dose 25 MG; Start 04/28/17 at 09:00 Levetiracetam (Keppra Liquid) 500 mg BID GTB Last administered on 05/01/17 08: 34; Admin Dose 500 MG; Start 04/27/17 at 21:00 Miscellaneous Information 1 ea NOTE XX ; Start 04/27/17 at 16:30 Glucose (Glutose) 15 gm Q15M PRN PO DECREASED GLUCOSE; Start 04/27/17 at 16:30 Glucose (Glutose) 22.5 gm Q15M PRN PO DECREASED GLUCOSE; Start 04/27/17 at 16: 30 Dextrose (D50w Syringe) 25 ml Q15M PRN IV DECREASED GLUCOSE; Start 04/27/17 at 16:30 Dextrose (D50w Syringe) 50 ml Q15M PRN IV DECREASED GLUCOSE; Start 04/27/17 at 16:30 Glucagon (Glucagen) 1 mg Q15M PRN IM DECREASED GLUCOSE; Start 04/27/17 at 16:30 Glucose 15 gm 15 gm Q15M PRN BUCCAL DECREASED GLUCOSE; Start 04/27/17 at 16:30 Piperacillin Sod/ Tazobactam Sod/ Dextrose (Zosyn/D5W) 100 ml @ 200 mls/hr Q6 IVPB Last administered on 05/01/17 12:08; Admin Dose 200 MLS/HR; Start at 00:00 Hydralazine HCl (Apresoline) 10 mg Q6H PRN IV ELEVATED BLOOD PRESSURE; Start at 12:30 Insulin Aspart (Novolog Insulin Pen) 10 unit Q6 SC Last administered on 12:21; Admin Dose 10 UNIT; Start 04/30/17 at 12:00 Insulin Glargine (Lantus) 32 unit DAILY@20 SC Last administered on 04/30/17 20 :36; Admin Dose 32 UNIT; Start 04/30/17 at 20:00 Famotidine 20 mg 20 mg Q12 GTB Last administered on 05/01/17 08:34; Admin Dose 20 MG; Start 04/30/17 at 21:00 Vancomycin HCl (Vancocin) 250 ml @ 125 mls/hr Q12H IVPB Last administered on 03:01; Admin Dose 125 MLS/HR; Start 05/01/17 at 03:00 Miscellaneous Information (*Rx Drug Level Order Reminder*) VANCOMYCIN TROUGH LEVEL... ONCE ONCE XX ; Start 05/02/17 at 14:00; Stop 05/02/17 at 14:01 Insulin Aspart (Novolog Insulin Pen) NOVOLOG *MODERATE* ALGORI... Q6 SC Last administered on 05/01/17 12:22; Admin Dose 4 UNIT; Start 05/01/17 at 12:00 KELLEY ALVES NP May 01, 2017 14:17
--- NOTE | 2017-05-01 15:28 | CONS ---
Date/Time of Note Date/Time of Note DATE: 05/01/17 TIME: 15:25 Assessment/Plan Assessment/Plan Additional Assessment/Plan 81 yo Female 1) Hypernatremia- Resolved 2) Ingrid, Pre-Renal- Resolved 3) Recent large left sided stroke 4) DNR 5) Hyperglycemia 6) HTN, Chronic- controlled 7) Protein calorie malnutrition, Severe 8) Hypocalcemia, Dilutional, improved after correction with albumin- Resolved Nephrology will sign off. re consult as needed. Consultation Date/Type/Reason Admit Date/Time Apr 27, 2017 at 13:31 Initial Consult Date 04/28/17 Type of Consultation: Renal Referring Provider: FLORI DIAL 24 HR Interval Summary Constitutional: requiring O2 Exam/Review of Systems Vital Signs Vitals Vital Signs Date Time Temp Pulse Resp B/P Pulse Ox O2 Delivery O2 Flow Rate FiO2 05/01/17 12:07 94 05/01/17 11:16 97.8 20 137/72 98 05/01/17 10:35 5.0 05/01/17 08:30 Nasal Cannula 04/29/17 08:26 100 Intake and Output 04/30/17 04/30/17 05/01/17 15:00 23:00 07:00 Intake Total 575 ml 1295 ml 1090 ml Output Total 1500 ml 600 ml Balance 575 ml -205 ml 490 ml Exam Constitutional: No distress ENMT: mucosa pink and moist Respiratory: No labored breathing Neurological: lethargic Skin: No diaphoresis Results Result Diagram: 05/01/17 0705 05/01/17 0702 Results 24 hrs Laboratory Tests Test 04/30/17 17:51 04/30/17 20:28 05/01/17 00:22 05/01/17 00:24 Bedside Glucose 137 147 172 Vancomycin Level Trough < 5.0 L Test 05/01/17 01:28 05/01/17 05:26 05/01/17 06:17 05/01/17 07:02 Bedside Glucose 143 185 172 Sodium Level 140 Potassium Level 4.0 Chloride Level 107 Carbon Dioxide Level 28 Anion Gap 9 Blood Urea Nitrogen 17 Creatinine 0.64 Glucose Level 215 Calcium Level 8.3 L Test 05/01/17 07:05 05/01/17 08:29 05/01/17 12:16 White Blood Count 10.2 Red Blood Count 3.93 L Hemoglobin 11.3 L Hematocrit 36.5 L Mean Corpuscular Volume 92.9 Mean Corpuscular Hemoglobin 28.8 L Mean Corpuscular Hemoglobin Concent 31.0 L Red Cell Distribution Width 13.2 Platelet Count 198 # Mean Platelet Volume 12.6 H Neutrophils % 75.8 Lymphocytes % 15.0 Monocytes % 5.3 Eosinophils % 2.7 Basophils % 0.4 Nucleated Red Blood Cells % 0.0 Neutrophils # 7.7 H Lymphocytes # 1.5 Monocytes # 0.5 Eosinophils # 0.3 Basophils # 0.0 Nucleated Red Blood Cells # 0.0 Ionized Calcium (Measured) 1.1 Bedside Glucose 175 187 Medications Medications Current Medications Ondansetron HCl (Zofran Inj) 4 mg Q6H PRN IV NAUSEA AND/OR VOMITING; Start at 16:00 Acetaminophen (Tylenol Tab) 650 mg Q6H PRN PO PAIN LEVEL 1-3 OR FEVER Last administered on 04/30/17 08:43; Admin Dose 650 MG; Start 04/27/17 at 16:00 Acetaminophen/ Hydrocodone Bitart ([place] (5/325)) 1 tab Q6H PRN PO MODERATE PAIN LEVEL 4-6; Start 04/27/17 at 16:00 Morphine Sulfate (morphine) 2 mg Q4H PRN IV SEVERE PAIN LEVEL 7-10; Start 04/27 at 16:00 Docusate Sodium (Colace) 100 mg Q12H PRN PO CONSTIPATION; Start 04/27/17 at 16: 00 Magnesium Hydroxide (Milk Of Mag) 30 ml DAILY PRN PO CONSTIPATION; Start at 16:00 Heparin Sodium (Porcine) (Heparin (5000 Units/0.5 ml)) 5,000 unit Q12 SC Last administered on 05/01/17 08:34; Admin Dose 5,000 UNIT; Start 04/27/17 at 21:00 Lorazepam (Ativan) 0.5 mg Q6H PRN IV ANXIETY Last administered on 04/29/17 20: 29; Admin Dose 0.5 MG; Start 04/27/17 at 16:00 Vancomycin HCl (Vanco Iv Per Pharmacy) VANCOMYCIN PER PHARMACY NOTE XX ; Start 04/27/17 at 16:00 Nitroglycerin (Nitroglycerin (Sl Tab) 0.4 Mg) 1 tab Q5M PRN SL ANGINA; Start at 16:00 Diagnostic Test (Pha) (Accu-Chek) 1 ea 02 XX Last administered on 04/30/17 02: 08; Admin Dose 1 EA; Start 04/28/17 at 02:00 Clopidogrel Bisulfate (plaVIX) 75 mg DAILY PO Last administered on 05/01/17 08 :34; Admin Dose 75 MG; Start 04/28/17 at 09:00 Exemestane (Aromasin) 25 mg DAILY GTB Last administered on 05/01/17 08:33; Admin Dose 25 MG; Start 04/28/17 at 09:00 Levetiracetam (Keppra Liquid) 500 mg BID GTB Last administered on 05/01/17 08: 34; Admin Dose 500 MG; Start 04/27/17 at 21:00 Miscellaneous Information 1 ea NOTE XX ; Start 04/27/17 at 16:30 Glucose (Glutose) 15 gm Q15M PRN PO DECREASED GLUCOSE; Start 04/27/17 at 16:30 Glucose (Glutose) 22.5 gm Q15M PRN PO DECREASED GLUCOSE; Start 04/27/17 at 16: 30 Dextrose (D50w Syringe) 25 ml Q15M PRN IV DECREASED GLUCOSE; Start 04/27/17 at 16:30 Dextrose (D50w Syringe) 50 ml Q15M PRN IV DECREASED GLUCOSE; Start 04/27/17 at 16:30 Glucagon (Glucagen) 1 mg Q15M PRN IM DECREASED GLUCOSE; Start 04/27/17 at 16:30 Glucose 15 gm 15 gm Q15M PRN BUCCAL DECREASED GLUCOSE; Start 04/27/17 at 16:30 Piperacillin Sod/ Tazobactam Sod/ Dextrose (Zosyn/D5W) 100 ml @ 200 mls/hr Q6 IVPB Last administered on 05/01/17 12:08; Admin Dose 200 MLS/HR; Start at 00:00 Hydralazine HCl (Apresoline) 10 mg Q6H PRN IV ELEVATED BLOOD PRESSURE; Start at 12:30 Insulin Aspart (Novolog Insulin Pen) 10 unit Q6 SC Last administered on 12:21; Admin Dose 10 UNIT; Start 04/30/17 at 12:00 Insulin Glargine (Lantus) 32 unit DAILY@20 SC Last administered on 04/30/17 20 :36; Admin Dose 32 UNIT; Start 04/30/17 at 20:00 Famotidine 20 mg 20 mg Q12 GTB Last administered on 05/01/17 08:34; Admin Dose 20 MG; Start 04/30/17 at 21:00 Vancomycin HCl (Vancocin) 250 ml @ 125 mls/hr Q12H IVPB Last administered on 14:42; Admin Dose 125 MLS/HR; Start 05/01/17 at 03:00 Miscellaneous Information (*Rx Drug Level Order Reminder*) VANCOMYCIN TROUGH LEVEL... ONCE ONCE XX ; Start 05/02/17 at 14:00; Stop 05/02/17 at 14:01 Insulin Aspart (Novolog Insulin Pen) NOVOLOG *MODERATE* ALGORI... Q6 SC Last administered on 05/01/17 12:22; Admin Dose 4 UNIT; Start 05/01/17 at 12:00 PARAG RESENDIZ MD May 01, 2017 15:28
[2017-05-01] MEDS: INSULIN GLARGINE [LANtus] 3 ML PEN SC SCH (20:27)
[2017-05-02] VITALS (13 sets, daily range): BP systolic 132–176; BP diastolic 62–76; PULSE 80–98; RESP 18–22
[2017-05-02] MEDS: ACCU-CHEK XX SCH (02:00)
[2017-05-02] MEDS: VANCOMYCIN 1 GM in NS 250 ML IVPB SCH (02:49)
[2017-05-02] MEDS: INSULIN ASPART [NOVOLOG] 3 ML PEN SC SCH ×8 (05:32→23:54)
[2017-05-02] MEDS: PIPERACILLIN/TAZO 3.375 GM in DEXTROSE 5% 100 ML IVPB SCH ×2 (05:38→11:24)
[2017-05-02 06:47] LABS: ABNORMAL IP MESSAGE 1; BASOPHILS % 0.3 % (0.0-2.0); EOSINOPHILS # 0.3 10^3/ul (0.0-0.5); EOSINOPHILS % 3.7 % (0.0-7.0); HEMATOCRIT 34.4 % (37.0-47.0); HEMOGLOBIN 10.8 g/dl (12.0-16.0); LYMPHOCYTES # 1.3 10^3/ul (0.8-2.9); LYMPHOCYTES % 14.7 % (15.0-51.0); MEAN CORPUSCULAR HEMOGLOBIN 28.9 pg (29.0-33.0); MEAN CORPUSCULAR HGB CONC 31.4 g/dl (32.0-37.0); MEAN PLATELET VOLUME 13.2 fl (7.4-10.4); MONOCYTE # 0.6 10^3/ul (0.3-0.9); MONOCYTES % 6.4 % (0.0-11.0); NEUTROPHIL # 6.4 10^3/ul (1.6-7.5); PLATELET COUNT 198 10^3/UL (140-415); RED BLOOD COUNT 3.74 10^6/ul (4.20-5.40); RED CELL DISTRIBUTION WIDTH 13.5 % (11.5-14.5); WHITE BLOOD COUNT 8.7 10^3/ul (4.8-10.8)
[2017-05-02 06:59] LABS: POSITIVE DIFF @See below
[2017-05-02 07:16] LABS: CALCIUM 8.4 mg/dl (8.4-10.2); CREATININE 0.64 mg/dl (0.44-1.00); POTASSIUM 3.3 mmol/L (3.5-5.1)
[2017-05-02] MEDS: LEVETIRACETAM (100 MG/ML) 5ML CUP GTB SCH ×2 (08:43→20:51)
[2017-05-02] MEDS: FAMOTIDINE 20 MG TAB GTB SCH ×2 (08:43→20:51)
[2017-05-02] MEDS: CLOPIDOGREL 75 MG TAB PO SCH (08:43)
[2017-05-02] MEDS: HEPARIN 5,000 UNIT/0.5 ML VIAL SC SCH ×2 (08:45→20:51)
[2017-05-02] MEDS: EXEMESTANE 25 MG TAB GTB SCH (08:45)
--- NOTE | 2017-05-02 11:49 | CONS ---
Date/Time of Note Date/Time of Note DATE: 05/02/17 TIME: 11:49 Assessment/Plan Assessment/Plan Chief Complaint/Hosp Course ID PROGRESS NOTE TOTAL ABX DAY #6 CURRENT ABX=> Vanco IV + Zosyn 24H INTERVAL SUMMARY * Opens eys & tracking, nonverbal, sitter at bedside, calm, VSS, NAD * No fevers, WBC normalized GENERAL: VSS, NAD HEENT: Unremarkable NECK: Trach midline, full ROM CHEST: Rise symmetrical without dyspnea on observation ABDOMEN: Soft, EXTREMITIES: Warm,(+) moves extremities SKIN: No diaphoresis, no rash ID ASSESSMENT: 81 yo F admit with: 1. Sepsis with fevers and leukocytosis on admission => RESOLVED * 04/27/17 BCx (-) 2. Urinary tract infection 3. Dysphasia, possibly ongoing aspiration 4. History of CVA 5. History of breast cancer INVASIVES: ABX ALLERGY: KNDA TOTAL ABX DAY # 6 CURRENT ABX=> Vanco IV + Zosyn ID PLAN 1. DC ABX this afternoon 2. Observe Thursday OFF ABX, if stable, no evidence of recurrent sepsis/ASP pneumonitis, may DC OFF ABX . Problems: Consultation Date/Type/Reason Admit Date/Time Apr 27, 2017 at 13:31 Initial Consult Date 04/28/17 Type of Consultation: ID Referring Provider: FLORI DIAL Exam/Review of Systems Vital Signs Vitals Vital Signs Date Time Temp Pulse Resp B/P Pulse Ox O2 Delivery O2 Flow Rate FiO2 05/02/17 11:17 4.0 05/02/17 11:09 88 22 146/68 97 05/02/17 08:00 Nasal Cannula 05/02/17 07:34 98.9 04/29/17 08:26 100 Intake and Output 05/01/17 05/01/17 05/02/17 15:00 23:00 07:00 Intake Total 100 ml 1305 ml 1190 ml Output Total 1500 ml 1000 ml Balance 100 ml -195 ml 190 ml Results Result Diagram: 05/02/17 0608 05/02/17 0608 Results 24 hrs Laboratory Tests Test 05/01/17 12:16 05/01/17 18:04 05/01/17 23:35 05/02/17 05:31 Bedside Glucose 187 155 145 139 Test 05/02/17 06:08 05/02/17 11:34 White Blood Count 8.7 Red Blood Count 3.74 L Hemoglobin 10.8 L Hematocrit 34.4 L Mean Corpuscular Volume 92.0 Mean Corpuscular Hemoglobin 28.9 L Mean Corpuscular Hemoglobin Concent 31.4 L Red Cell Distribution Width 13.5 Platelet Count 198 Mean Platelet Volume 13.2 H Neutrophils % 74.0 Lymphocytes % 14.7 L Monocytes % 6.4 Eosinophils % 3.7 Basophils % 0.3 Nucleated Red Blood Cells % 0.0 Neutrophils # 6.4 Lymphocytes # 1.3 Monocytes # 0.6 Eosinophils # 0.3 Basophils # 0.0 Nucleated Red Blood Cells # 0.0 Sodium Level 143 Potassium Level 3.3 L Chloride Level 108 Carbon Dioxide Level 29 Anion Gap 9 Blood Urea Nitrogen 17 Creatinine 0.64 Glucose Level 167 Calcium Level 8.4 Bedside Glucose 202 Medications Medications Current Medications Ondansetron HCl (Zofran Inj) 4 mg Q6H PRN IV NAUSEA AND/OR VOMITING; Start at 16:00 Acetaminophen (Tylenol Tab) 650 mg Q6H PRN PO PAIN LEVEL 1-3 OR FEVER Last administered on 04/30/17 08:43; Admin Dose 650 MG; Start 04/27/17 at 16:00 Acetaminophen/ Hydrocodone Bitart ([place] (5/325)) 1 tab Q6H PRN PO MODERATE PAIN LEVEL 4-6; Start 04/27/17 at 16:00 Morphine Sulfate (morphine) 2 mg Q4H PRN IV SEVERE PAIN LEVEL 7-10; Start 04/27 at 16:00 Docusate Sodium (Colace) 100 mg Q12H PRN PO CONSTIPATION; Start 04/27/17 at 16: 00 Magnesium Hydroxide (Milk Of Mag) 30 ml DAILY PRN PO CONSTIPATION; Start at 16:00 Heparin Sodium (Porcine) (Heparin (5000 Units/0.5 ml)) 5,000 unit Q12 SC Last administered on 05/02/17 08:45; Admin Dose 5,000 UNIT; Start 04/27/17 at 21:00 Lorazepam (Ativan) 0.5 mg Q6H PRN IV ANXIETY Last administered on 04/29/17 20: 29; Admin Dose 0.5 MG; Start 04/27/17 at 16:00 Vancomycin HCl (Vanco Iv Per Pharmacy) VANCOMYCIN PER PHARMACY NOTE XX ; Start 04/27/17 at 16:00 Nitroglycerin (Nitroglycerin (Sl Tab) 0.4 Mg) 1 tab Q5M PRN SL ANGINA; Start at 16:00 Diagnostic Test (Pha) (Accu-Chek) 1 ea 02 XX Last administered on 04/30/17 02: 08; Admin Dose 1 EA; Start 04/28/17 at 02:00 Clopidogrel Bisulfate (plaVIX) 75 mg DAILY PO Last administered on 05/02/17 08 :43; Admin Dose 75 MG; Start 04/28/17 at 09:00 Exemestane (Aromasin) 25 mg DAILY GTB Last administered on 05/02/17 08:45; Admin Dose 25 MG; Start 04/28/17 at 09:00 Levetiracetam (Keppra Liquid) 500 mg BID GTB Last administered on 05/02/17 08: 43; Admin Dose 500 MG; Start 04/27/17 at 21:00 Miscellaneous Information 1 ea NOTE XX ; Start 04/27/17 at 16:30 Glucose (Glutose) 15 gm Q15M PRN PO DECREASED GLUCOSE; Start 04/27/17 at 16:30 Glucose (Glutose) 22.5 gm Q15M PRN PO DECREASED GLUCOSE; Start 04/27/17 at 16: 30 Dextrose (D50w Syringe) 25 ml Q15M PRN IV DECREASED GLUCOSE; Start 04/27/17 at 16:30 Dextrose (D50w Syringe) 50 ml Q15M PRN IV DECREASED GLUCOSE; Start 04/27/17 at 16:30 Glucagon (Glucagen) 1 mg Q15M PRN IM DECREASED GLUCOSE; Start 04/27/17 at 16:30 Glucose 15 gm 15 gm Q15M PRN BUCCAL DECREASED GLUCOSE; Start 04/27/17 at 16:30 Piperacillin Sod/ Tazobactam Sod/ Dextrose (Zosyn/D5W) 100 ml @ 200 mls/hr Q6 IVPB Last administered on 05/02/17 11:24; Admin Dose 200 MLS/HR; Start at 00:00 Hydralazine HCl (Apresoline) 10 mg Q6H PRN IV ELEVATED BLOOD PRESSURE; Start at 12:30 Insulin Aspart (Novolog Insulin Pen) 10 unit Q6 SC Last administered on 11:36; Admin Dose 10 UNIT; Start 04/30/17 at 12:00 Insulin Glargine (Lantus) 32 unit DAILY@20 SC Last administered on 05/01/17 20 :27; Admin Dose 32 UNIT; Start 04/30/17 at 20:00 Famotidine 20 mg 20 mg Q12 GTB Last administered on 05/02/17 08:43; Admin Dose 20 MG; Start 04/30/17 at 21:00 Vancomycin HCl (Vancocin) 250 ml @ 125 mls/hr Q12H IVPB Last administered on 02:49; Admin Dose 125 MLS/HR; Start 05/01/17 at 03:00 Miscellaneous Information (*Rx Drug Level Order Reminder*) VANCOMYCIN TROUGH LEVEL... ONCE ONCE XX ; Start 05/02/17 at 14:00; Stop 05/02/17 at 14:01 Insulin Aspart (Novolog Insulin Pen) NOVOLOG *MODERATE* ALGORI... Q6 SC Last administered on 05/02/17 11:37; Admin Dose 4 UNIT; Start 05/01/17 at 12:00 GREGG BARONE NP May 02, 2017 11:49
--- NOTE | 2017-05-02 11:57 | PN ---
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 1. Sepsis - sec to UTI and URI -Shortness of breath/respiratory distress slowly improving-still on O2 supplementation. -continue on oxygen supplementation, wean down as tolerated - broad spectrum antibiotics as well given her leukocytosis (improved) -Tylenol p.r.n. pain or fever. 2. Hypernatremia -resolved now -Continue free water through G-tube as well. -Follow-up renal recommendations 3. Hyperglycemia. Sugars improved now. Again, there is no elevated anion gap, lactic acid was normal as well. A1c = 8.4 -continue subcu insulin, aspart and Lantus 4. Hypertension. Again, continue to monitor for now. 5. High cholesterol. Follow up lipid panel. 6. History of breast cancer. Continue to monitor for now. Again, patient is a do not resuscitate. Dispo; back to longterm facility hopefully in 24-48 hours. Problems: Subjective 24 Hr Interval Summary Free Text/Dictation Per nursing staff family met with hospice but refused hospice services at this time, patient still DNR, otherwise no acute events overnight. Exam/Review of Systems Vital Signs Vitals Vital Signs Date Time Temp Pulse Resp B/P Pulse Ox O2 Delivery O2 Flow Rate FiO2 05/02/17 11:17 4.0 05/02/17 11:09 88 22 146/68 97 05/02/17 08:00 Nasal Cannula 05/02/17 07:34 98.9 04/29/17 08:26 100 Intake and Output 05/01/17 05/01/17 05/02/17 15:00 23:00 07:00 Intake Total 100 ml 1305 ml 1190 ml Output Total 1500 ml 1000 ml Balance 100 ml -195 ml 190 ml Exam GENERAL: Patient lying in bed, opens eyes, on nasal cannula HEENT: Pupils equal, round, react to light, Extraocular muscles intact. NECK: Supple. LUNGS: less distant breath sounds bilaterally. CARDIOVASCULAR: S1, S2 heard. ABDOMEN: Soft, nontender, nondistended. Normal bowel sounds. No rebound or guarding. MUSCULOSKELETAL: no lower extremity bilaterally. NEUROLOGIC: Unable to perform due to the patient's lethargy. Results Result Diagram: 05/02/17 0608 05/02/17 0608 Results 24 hrs Laboratory Tests Test 05/01/17 12:16 05/01/17 18:04 05/01/17 23:35 05/02/17 05:31 Bedside Glucose 187 155 145 139 Test 05/02/17 06:08 05/02/17 11:34 White Blood Count 8.7 Red Blood Count 3.74 L Hemoglobin 10.8 L Hematocrit 34.4 L Mean Corpuscular Volume 92.0 Mean Corpuscular Hemoglobin 28.9 L Mean Corpuscular Hemoglobin Concent 31.4 L Red Cell Distribution Width 13.5 Platelet Count 198 Mean Platelet Volume 13.2 H Neutrophils % 74.0 Lymphocytes % 14.7 L Monocytes % 6.4 Eosinophils % 3.7 Basophils % 0.3 Nucleated Red Blood Cells % 0.0 Neutrophils # 6.4 Lymphocytes # 1.3 Monocytes # 0.6 Eosinophils # 0.3 Basophils # 0.0 Nucleated Red Blood Cells # 0.0 Sodium Level 143 Potassium Level 3.3 L Chloride Level 108 Carbon Dioxide Level 29 Anion Gap 9 Blood Urea Nitrogen 17 Creatinine 0.64 Glucose Level 167 Calcium Level 8.4 Bedside Glucose 202 Medications Medications Current Medications Ondansetron HCl (Zofran Inj) 4 mg Q6H PRN IV NAUSEA AND/OR VOMITING; Start at 16:00 Acetaminophen (Tylenol Tab) 650 mg Q6H PRN PO PAIN LEVEL 1-3 OR FEVER Last administered on 04/30/17t 08:43; Admin Dose 650 MG; Start 04/27/17 at 16:00 Acetaminophen/ Hydrocodone Bitart ([place] (5/325)) 1 tab Q6H PRN PO MODERATE PAIN LEVEL 4-6; Start 04/27/17 at 16:00 Morphine Sulfate (morphine) 2 mg Q4H PRN IV SEVERE PAIN LEVEL 7-10; Start 04/27 at 16:00 Docusate Sodium (Colace) 100 mg Q12H PRN PO CONSTIPATION; Start 04/27/17 at 16: 00 Magnesium Hydroxide (Milk Of Mag) 30 ml DAILY PRN PO CONSTIPATION; Start at 16:00 Heparin Sodium (Porcine) (Heparin (5000 Units/0.5 ml)) 5,000 unit Q12 SC Last administered on 05/02/17 08:45; Admin Dose 5,000 UNIT; Start 04/27/17 at 21:00 Lorazepam (Ativan) 0.5 mg Q6H PRN IV ANXIETY Last administered on 04/29/17 20: 29; Admin Dose 0.5 MG; Start 04/27/17 at 16:00 Vancomycin HCl (Vanco Iv Per Pharmacy) VANCOMYCIN PER PHARMACY NOTE XX ; Start 04/27/17 at 16:00 Nitroglycerin (Nitroglycerin (Sl Tab) 0.4 Mg) 1 tab Q5M PRN SL ANGINA; Start at 16:00 Diagnostic Test (Pha) (Accu-Chek) 1 ea 02 XX Last administered on 04/30/17 02: 08; Admin Dose 1 EA; Start 04/28/17 at 02:00 Clopidogrel Bisulfate (plaVIX) 75 mg DAILY PO Last administered on 05/02/17 08 :43; Admin Dose 75 MG; Start 04/28/17 at 09:00 Exemestane (Aromasin) 25 mg DAILY GTB Last administered on 05/02/17 08:45; Admin Dose 25 MG; Start 04/28/17 at 09:00 Levetiracetam (Keppra Liquid) 500 mg BID GTB Last administered on 05/02/17 08: 43; Admin Dose 500 MG; Start 04/27/17 at 21:00 Miscellaneous Information 1 ea NOTE XX ; Start 04/27/17 at 16:30 Glucose (Glutose) 15 gm Q15M PRN PO DECREASED GLUCOSE; Start 04/27/17 at 16:30 Glucose (Glutose) 22.5 gm Q15M PRN PO DECREASED GLUCOSE; Start 04/27/17 at 16: 30 Dextrose (D50w Syringe) 25 ml Q15M PRN IV DECREASED GLUCOSE; Start 04/27/17 at 16:30 Dextrose (D50w Syringe) 50 ml Q15M PRN IV DECREASED GLUCOSE; Start 04/27/17 at 16:30 Glucagon (Glucagen) 1 mg Q15M PRN IM DECREASED GLUCOSE; Start 04/27/17 at 16:30 Glucose 15 gm 15 gm Q15M PRN BUCCAL DECREASED GLUCOSE; Start 04/27/17 at 16:30 Piperacillin Sod/ Tazobactam Sod/ Dextrose (Zosyn/D5W) 100 ml @ 200 mls/hr Q6 IVPB Last administered on 05/02/17 11:24; Admin Dose 200 MLS/HR; Start at 00:00 Hydralazine HCl (Apresoline) 10 mg Q6H PRN IV ELEVATED BLOOD PRESSURE; Start at 12:30 Insulin Aspart (Novolog Insulin Pen) 10 unit Q6 SC Last administered on 11:36; Admin Dose 10 UNIT; Start 04/30/17 at 12:00 Insulin Glargine (Lantus) 32 unit DAILY@20 SC Last administered on 05/01/17 20 :27; Admin Dose 32 UNIT; Start 04/30/17 at 20:00 Famotidine 20 mg 20 mg Q12 GTB Last administered on 05/02/17 08:43; Admin Dose 20 MG; Start 04/30/17 at 21:00 Vancomycin HCl (Vancocin) 250 ml @ 125 mls/hr Q12H IVPB Last administered on 02:49; Admin Dose 125 MLS/HR; Start 05/01/17 at 03:00 Miscellaneous Information (*Rx Drug Level Order Reminder*) VANCOMYCIN TROUGH LEVEL... ONCE ONCE XX ; Start 05/02/17 at 14:00; Stop 05/02/17 at 14:01 Insulin Aspart NOVOLOG *MODERATE* ALGORI... Q6 SC Last administered on 11:37; Admin Dose 4 UNIT; Start 05/01/17 at 12:00 Potassium Chloride (KCl 40 MEQ/250 ML NS) 250 ml @ 62.5 mls/hr Q4H IVPB ; Start 05/02/17 at 12:00; Stop 05/02/17 at 19:59; Status FLORI HARLEY May 02, 2017 11:57
[2017-05-02] MEDS: POTASSIUM CHLORIDE 250 ML IVPB SCH ×2 (12:33→15:38)
--- NOTE | 2017-05-02 18:34 | CONS ---
Date/Time of Note Date/Time of Note DATE: 05/02/17 TIME: 18:33 Consult Date/Type/Reason Admit Date/Time Apr 27, 2017 at 13:31 Initial Consult Date 04/28/17 Type of Consultation: Pulm Ordering Provider: FLORI DIAL Subjective No events. Objective Vital Signs Date Time Temp Pulse Resp B/P Pulse Ox O2 Delivery O2 Flow Rate FiO2 05/02/17 16:32 88 05/02/17 16:00 Nasal Cannula 2.0 05/02/17 15:47 97.9 18 141/70 96 04/29/17 08:26 100 Intake and Output 05/01/17 05/01/17 05/02/17 15:00 23:00 07:00 Intake Total 100 ml 1305 ml 1190 ml Output Total 1500 ml 1000 ml Balance 100 ml -195 ml 190 ml Exam NECK: Supple. No JVD. No lymphadenopathy. CARDIAC: S1, S2. No added sounds or murmurs. CHEST: Diminished air entry bilaterally. ABDOMEN: Soft, nontender. No guarding or rebound. EXTREMITIES: No cyanosis, clubbing, or edema. Results/Medications Result Diagram: 05/02/17 0608 05/02/17 0608 Results 24 hrs Laboratory Tests Test 05/01/17 23:35 05/02/17 05:31 05/02/17 06:08 05/02/17 11:34 Bedside Glucose 145 139 202 White Blood Count 8.7 Red Blood Count 3.74 L Hemoglobin 10.8 L Hematocrit 34.4 L Mean Corpuscular Volume 92.0 Mean Corpuscular Hemoglobin 28.9 L Mean Corpuscular Hemoglobin Concent 31.4 L Red Cell Distribution Width 13.5 Platelet Count 198 Mean Platelet Volume 13.2 H Neutrophils % 74.0 Lymphocytes % 14.7 L Monocytes % 6.4 Eosinophils % 3.7 Basophils % 0.3 Nucleated Red Blood Cells % 0.0 Neutrophils # 6.4 Lymphocytes # 1.3 Monocytes # 0.6 Eosinophils # 0.3 Basophils # 0.0 Nucleated Red Blood Cells # 0.0 Sodium Level 143 Potassium Level 3.3 L Chloride Level 108 Carbon Dioxide Level 29 Anion Gap 9 Blood Urea Nitrogen 17 Creatinine 0.64 Glucose Level 167 Calcium Level 8.4 Test 05/02/17 13:35 05/02/17 17:30 Vancomycin Level Trough 11.0 Bedside Glucose 130 Medications Current Medications Ondansetron HCl (Zofran Inj) 4 mg Q6H PRN IV NAUSEA AND/OR VOMITING; Start at 16:00 Acetaminophen (Tylenol Tab) 650 mg Q6H PRN PO PAIN LEVEL 1-3 OR FEVER Last administered on 04/30/17 08:43; Admin Dose 650 MG; Start 04/27/17 at 16:00 Acetaminophen/ Hydrocodone Bitart ([place] (5/325)) 1 tab Q6H PRN PO MODERATE PAIN LEVEL 4-6; Start 04/27/17 at 16:00 Morphine Sulfate (morphine) 2 mg Q4H PRN IV SEVERE PAIN LEVEL 7-10; Start 04/27 at 16:00 Docusate Sodium (Colace) 100 mg Q12H PRN PO CONSTIPATION; Start 04/27/17 at 16: 00 Magnesium Hydroxide (Milk Of Mag) 30 ml DAILY PRN PO CONSTIPATION; Start at 16:00 Heparin Sodium (Porcine) (Heparin (5000 Units/0.5 ml)) 5,000 unit Q12 SC Last administered on 05/02/17 08:45; Admin Dose 5,000 UNIT; Start 04/27/17 at 21:00 Lorazepam (Ativan) 0.5 mg Q6H PRN IV ANXIETY Last administered on 04/29/17 20: 29; Admin Dose 0.5 MG; Start 04/27/17 at 16:00 Nitroglycerin (Nitroglycerin (Sl Tab) 0.4 Mg) 1 tab Q5M PRN SL ANGINA; Start at 16:00 Diagnostic Test (Pha) (Accu-Chek) 1 ea 02 XX Last administered on 04/30/17 02: 08; Admin Dose 1 EA; Start 04/28/17 at 02:00 Clopidogrel Bisulfate (plaVIX) 75 mg DAILY PO Last administered on 05/02/17 08 :43; Admin Dose 75 MG; Start 04/28/17 at 09:00 Exemestane (Aromasin) 25 mg DAILY GTB Last administered on 05/02/17 08:45; Admin Dose 25 MG; Start 04/28/17 at 09:00 Levetiracetam (Keppra Liquid) 500 mg BID GTB Last administered on 05/02/17 08: 43; Admin Dose 500 MG; Start 04/27/17 at 21:00 Miscellaneous Information 1 ea NOTE XX ; Start 04/27/17 at 16:30 Glucose (Glutose) 15 gm Q15M PRN PO DECREASED GLUCOSE; Start 04/27/17 at 16:30 Glucose (Glutose) 22.5 gm Q15M PRN PO DECREASED GLUCOSE; Start 04/27/17 at 16: 30 Dextrose (D50w Syringe) 25 ml Q15M PRN IV DECREASED GLUCOSE; Start 04/27/17 at 16:30 Dextrose (D50w Syringe) 50 ml Q15M PRN IV DECREASED GLUCOSE; Start 04/27/17 at 16:30 Glucagon (Glucagen) 1 mg Q15M PRN IM DECREASED GLUCOSE; Start 04/27/17 at 16:30 Glucose (Glutose) 15 gm Q15M PRN BUCCAL DECREASED GLUCOSE; Start 04/27/17 at 16 :30 Hydralazine HCl (Apresoline) 10 mg Q6H PRN IV ELEVATED BLOOD PRESSURE; Start at 12:30 Insulin Aspart (Novolog Insulin Pen) 10 unit Q6 SC Last administered on 17:35; Admin Dose 10 UNIT; Start 04/30/17 at 12:00 Insulin Glargine (Lantus) 32 unit DAILY@20 SC Last administered on 05/01/17 20 :27; Admin Dose 32 UNIT; Start 04/30/17 at 20:00 Famotidine (Pepcid) 20 mg Q12 GTB Last administered on 05/02/17 08:43; Admin Dose 20 MG; Start 04/30/17 at 21:00 Insulin Aspart NOVOLOG *MODERATE* ALGORI... Q6 SC Last administered on 11:37; Admin Dose 4 UNIT; Start 05/01/17 at 12:00 Potassium Chloride (KCl 40 MEQ/250 ML NS) 250 ml @ 62.5 mls/hr Q4H IVPB Last administered on 05/02/17 15:38; Admin Dose 62.5 MLS/HR; Start 05/02/17 at 12:00 ; Stop 05/02/17 at 19:59 Assessment/Plan Additional Assessment/Plan IMP: 1. Hypoxemic respiratory insufficiency 2. Possible aspiration pneumonitis. 3. History of cerebrovascular accident with dysphagia. 4. Remote history of breast cancer. RECS 1. Continued supplemental O2. 2. Pulmonary toilet. 3. Aspiration precautiions 4. Broad-spectrum antibiotic coverage. 5. Glycemic management. 6. Deep venous thrombosis and gastrointestinal prophylaxis. GOOD DANIEL MD May 02, 2017 18:34
[2017-05-02] MEDS: INSULIN GLARGINE [LANtus] 3 ML PEN SC SCH (20:50)
[2017-05-03] VITALS (10 sets, daily range): BP systolic 126–164; BP diastolic 59–75; PULSE 93–173; RESP 18–21
[2017-05-03] MEDS: INSULIN ASPART [NOVOLOG] 3 ML PEN SC SCH ×4 (05:59→11:27)
[2017-05-03 07:04] LABS: ABNORMAL IP MESSAGE 1; BASOPHIL # 0.1 10^3/ul (0.0-0.1); BASOPHILS % 0.5 % (0.0-2.0); EOSINOPHILS # 0.2 10^3/ul (0.0-0.5); EOSINOPHILS % 2.2 % (0.0-7.0); HEMATOCRIT 35.2 % (37.0-47.0); HEMOGLOBIN 11.6 g/dl (12.0-16.0); LYMPHOCYTES # 1.7 10^3/ul (0.8-2.9); LYMPHOCYTES % 18.1 % (15.0-51.0); MEAN CORPUSCULAR HEMOGLOBIN 30.3 pg (29.0-33.0); MEAN CORPUSCULAR VOLUME 91.9 fl (82.0-101.0); MEAN PLATELET VOLUME 13.3 fl (7.4-10.4); MONOCYTE # 0.7 10^3/ul (0.3-0.9); MONOCYTES % 7.7 % (0.0-11.0); NEUTROPHIL # 6.7 10^3/ul (1.6-7.5); NEUTROPHILS % 70.4 % (39.0-77.0); PLATELET COUNT 236 10^3/UL (140-415); RED BLOOD COUNT 3.83 10^6/ul (4.20-5.40); RED CELL DISTRIBUTION WIDTH 13.9 % (11.5-14.5); WHITE BLOOD COUNT 9.5 10^3/ul (4.8-10.8)
[2017-05-03 07:12] LABS: POSITIVE DIFF @See below
[2017-05-03 07:52] LABS: CALCIUM 9.2 mg/dl (8.4-10.2); CREATININE 0.59 mg/dl (0.44-1.00); POTASSIUM 4.1 mmol/L (3.5-5.1)
[2017-05-03] MEDS: CLOPIDOGREL 75 MG TAB PO SCH (08:57)
[2017-05-03] MEDS: FAMOTIDINE 20 MG TAB GTB SCH (08:57)
[2017-05-03] MEDS: LEVETIRACETAM (100 MG/ML) 5ML CUP GTB SCH (08:57)
[2017-05-03] MEDS: EXEMESTANE 25 MG TAB GTB SCH (08:59)
[2017-05-03] MEDS: HEPARIN 5,000 UNIT/0.5 ML VIAL SC SCH (08:59)
--- NOTE | 2017-05-03 10:42 | PDOCDIS ---
Discharge Instructions CONDITION Patient Condition: Stable HOME CARE INSTRUCTIONS: Special Diet: gtf ACTIVITY: Activity Restrictions: Slowly Increase Activity FLORI DIAL May 03, 2017 10:42
--- NOTE | 2017-05-03 11:42 | DS ---
DATE OF ADMISSION: 04/27/2017 DATE OF DISCHARGE: 05/03/2017 HISTORY OF PRESENT ILLNESS/HOSPITAL COURSE: This is a 81-year- old female originally admitted on April 27, 2017, and [facility], [facility]. The patient came in with shortness of breath. She was diagnosed with respiratory distress, was placed on the supplemental oxygen. Also found with severe hypernatremia, as well. She has a prior history of breast cancer and large ischemic stroke on April 12, 2017, at another hospital with right-sided weakness symptoms, so she was admitted, placed on broad-spectrum antibiotics. She also had a urinary tract infection as well as her urine culture was positive for Enterococcus species, although less than 10,000 colony-forming units. Her blood cultures remained negative. Over the course of her hospital stay, her breathing symptoms improved. We were able to wean down her oxygen down to 2L after being on nonrebreather during early part of her admission. She was seen by pulmonary and renal team as well. Her sodium levels improved after treatment with free water and D5W IV fluids. She was close to back at her baseline status. Because of her history of stroke and prior breast cancer, family met with hospice team while the patient was here, as there was concern about patient may need to be under the care of hospice services, but family refused hospice service at this time. The patient has been DNR, however, since the beginning of this admission, and because her urine infection and respiratory symptoms have clinically improved, and the sodium has improved, and she is back at her baseline status, she will be discharged back to [facility] today in improved condition. DISCHARGE MEDICATIONS: For full list of discharge medications, please see printed medical reconciliation sheet in the chart. FINAL DIAGNOSES: 1. Sepsis secondary to urinary tract infection (UTI) and upper respiratory infection, now improving. 2. Hypernatremia, resolved. 3. Hyperglycemia with A1c of 8.4, now sugars normal. 4. Essential hypertension. 5. High cholesterol. 6. History of breast cancer. 7. History of left middle cerebral artery stroke with right- sided residual weakness symptoms on April 12, 2017. TIME SPENT: Time spent discharging the patient, 45 minutes. Dictated By: Loc Norman MD /[email or web address] /Document#: [id number]
--- NOTE | 2017-05-03 16:09 | CONS ---
Date/Time of Note Date/Time of Note DATE: 05/03/17 TIME: 16:05 Assessment/Plan Assessment/Plan Chief Complaint/Hosp Course ID PROGRESS NOTE TOTAL ABX DAY #6 => Vanco IV + Zosyn x#6 days -> DC"d last night 05/02 => OFF ABX DAY #1 CURRENT ABX=> OFF ABX DAY #1 24H INTERVAL SUMMARY * Stable 24H OFF ABX -> doing well, without dyspnea, DC planning in process * No recurrent aspiration events per sitter at bedside, No fevers, WBC normalized * Opens eys & tracking, nonverbal, calm, VSS, NAD GENERAL: VSS, NAD HEENT: Unremarkable NECK: Trach midline, full ROM CHEST: Rise symmetrical without dyspnea on observation ABDOMEN: Soft, EXTREMITIES: Warm,(+) moves extremities SKIN: No diaphoresis, no rash ID ASSESSMENT: 81 yo F admit with: 1. Sepsis with fevers and leukocytosis on admission => RESOLVED * 04/27/17 BCx (-) 2. Urinary tract infection => RESOLVED 3. Dysphasia, possibly ongoing aspiration => RESOLVED, no recurrent aspiration per sitter 4. History of CVA 5. History of breast cancer INVASIVES: ABX ALLERGY: KNDA TOTAL ABX DAY #6 => Vanco IV + Zosyn x#6 days -> DC"d last night 05/02 CURRENT ABX=> OFF ABX DAY #1 ID PLAN 1. Patient is stable s/p 6 days ABX, CXR clear, no recurrent ASP events, UTI has been treated. 2.DC planning -> DC OFF ABX / . Problems: Consultation Date/Type/Reason Admit Date/Time Apr 27, 2017 at 13:31 Initial Consult Date 04/28/17 Type of Consultation: ID Referring Provider: FLORI DIAL Exam/Review of Systems Vital Signs Vitals Vital Signs Date Time Temp Pulse Resp B/P Pulse Ox O2 Delivery O2 Flow Rate FiO2 05/03/17 14:29 173 05/03/17 13:54 143/67 05/03/17 11:21 97.7 21 96 05/03/17 09:31 Nasal Cannula 2.0 04/29/17 08:26 100 Intake and Output 05/02/17 05/02/17 05/03/17 15:00 23:00 07:00 Intake Total 100 ml 1280 ml 1040 ml Output Total 700 ml 1300 ml Balance 100 ml 580 ml -260 ml Results Result Diagram: 05/03/17 0555 05/03/17 0555 Results 24 hrs Laboratory Tests Test 05/02/17 17:30 05/02/17 20:48 05/02/17 23:48 05/03/17 05:55 Bedside Glucose 130 128 162 154 White Blood Count 9.5 Red Blood Count 3.83 L Hemoglobin 11.6 L Hematocrit 35.2 L Mean Corpuscular Volume 91.9 Mean Corpuscular Hemoglobin 30.3 Mean Corpuscular Hemoglobin Concent 33.0 Red Cell Distribution Width 13.9 Platelet Count 236 Mean Platelet Volume 13.3 H Neutrophils % 70.4 Lymphocytes % 18.1 Monocytes % 7.7 Eosinophils % 2.2 Basophils % 0.5 Nucleated Red Blood Cells % 0.0 Neutrophils # 6.7 Lymphocytes # 1.7 Monocytes # 0.7 Eosinophils # 0.2 Basophils # 0.1 Nucleated Red Blood Cells # 0.0 Sodium Level 139 Potassium Level 4.1 Chloride Level 109 Carbon Dioxide Level 25 Anion Gap 9 Blood Urea Nitrogen 21 H Creatinine 0.59 Glucose Level 166 Calcium Level 9.2 Test 05/03/17 11:19 Bedside Glucose 161 Medications Medications Current Medications Ondansetron HCl (Zofran Inj) 4 mg Q6H PRN IV NAUSEA AND/OR VOMITING; Start at 16:00 Acetaminophen (Tylenol Tab) 650 mg Q6H PRN PO PAIN LEVEL 1-3 OR FEVER Last administered on 04/30/17t 08:43; Admin Dose 650 MG; Start 04/27/17 at 16:00 Acetaminophen/ Hydrocodone Bitart ([place] (5/325)) 1 tab Q6H PRN PO MODERATE PAIN LEVEL 4-6; Start 04/27/17 at 16:00 Morphine Sulfate (morphine) 2 mg Q4H PRN IV SEVERE PAIN LEVEL 7-10; Start 04/27 at 16:00 Docusate Sodium (Colace) 100 mg Q12H PRN PO CONSTIPATION; Start 04/27/17 at 16: 00 Magnesium Hydroxide (Milk Of Mag) 30 ml DAILY PRN PO CONSTIPATION; Start at 16:00 Heparin Sodium (Porcine) (Heparin (5000 Units/0.5 ml)) 5,000 unit Q12 SC Last administered on 05/03/17 08:59; Admin Dose 5,000 UNIT; Start 04/27/17 at 21:00 Lorazepam (Ativan) 0.5 mg Q6H PRN IV ANXIETY Last administered on 04/29/17 20: 29; Admin Dose 0.5 MG; Start 04/27/17 at 16:00 Nitroglycerin (Nitroglycerin (Sl Tab) 0.4 Mg) 1 tab Q5M PRN SL ANGINA; Start at 16:00 Clopidogrel Bisulfate (plaVIX) 75 mg DAILY PO Last administered on 05/03/17 08 :57; Admin Dose 75 MG; Start 04/28/17 at 09:00 Exemestane (Aromasin) 25 mg DAILY GTB Last administered on 05/03/17 08:59; Admin Dose 25 MG; Start 04/28/17 at 09:00 Levetiracetam (Keppra Liquid) 500 mg BID GTB Last administered on 05/03/17 08: 57; Admin Dose 500 MG; Start 04/27/17 at 21:00 Miscellaneous Information 1 ea NOTE XX ; Start 04/27/17 at 16:30 Glucose (Glutose) 15 gm Q15M PRN PO DECREASED GLUCOSE; Start 04/27/17 at 16:30 Glucose (Glutose) 22.5 gm Q15M PRN PO DECREASED GLUCOSE; Start 04/27/17 at 16: 30 Dextrose (D50w Syringe) 25 ml Q15M PRN IV DECREASED GLUCOSE; Start 04/27/17 at 16:30 Dextrose (D50w Syringe) 50 ml Q15M PRN IV DECREASED GLUCOSE; Start 04/27/17 at 16:30 Glucagon (Glucagen) 1 mg Q15M PRN IM DECREASED GLUCOSE; Start 04/27/17 at 16:30 Glucose (Glutose) 15 gm Q15M PRN BUCCAL DECREASED GLUCOSE; Start 04/27/17 at 16 :30 Hydralazine HCl (Apresoline) 10 mg Q6H PRN IV ELEVATED BLOOD PRESSURE Last administered on 05/02/17 21:01; Admin Dose 10 MG; Start 04/29/17 at 12:30 Insulin Aspart (Novolog Insulin Pen) 10 unit Q6 SC Last administered on 11:26; Admin Dose 10 UNIT; Start 04/30/17 at 12:00 Insulin Glargine (Lantus) 32 unit DAILY@20 SC Last administered on 05/02/17 20 :50; Admin Dose 32 UNIT; Start 04/30/17 at 20:00 Famotidine (Pepcid) 20 mg Q12 GTB Last administered on 05/03/17 08:57; Admin Dose 20 MG; Start 04/30/17 at 21:00 Insulin Aspart (Novolog Insulin Pen) NOVOLOG *MODERATE* [place]ORI... Q6 SC Last administered on 05/03/17 11:27; Admin Dose 2 UNIT; Start 05/01/17 at 12:00 GREGG BARONE NP May 03, 2017 16:09
--- NOTE | 2017-05-03 16:46 | CONS ---
Date/Time of Note Date/Time of Note DATE: 05/03/17 TIME: 16:45 Consult Date/Type/Reason Admit Date/Time Apr 27, 2017 at 13:31 Initial Consult Date 04/28/17 Type of Consultation: Pulm Ordering Provider: FLORI DIAL Subjective d/c planned by PMD. No c/o Objective Vital Signs Date Time Temp Pulse Resp B/P Pulse Ox O2 Delivery O2 Flow Rate FiO2 05/03/17 16:00 96 05/03/17 13:54 143/67 05/03/17 11:21 97.7 21 96 05/03/17 09:31 Nasal Cannula 2.0 04/29/17 08:26 100 Intake and Output 05/02/17 05/02/17 05/03/17 15:00 23:00 07:00 Intake Total 100 ml 1280 ml 1040 ml Output Total 700 ml 1300 ml Balance 100 ml 580 ml -260 ml Exam HEENT: Neck supple; no JVD; no LAD CVS: RRR, S1 and S2 CHEST: Clear ABD: Soft, NT, + BS EXT: No c/c/e Results/Medications Result Diagram: 05/03/17 0555 05/03/17 0555 Results 24 hrs Laboratory Tests Test 05/02/17 17:30 05/02/17 20:48 05/02/17 23:48 05/03/17 05:55 Bedside Glucose 130 128 162 154 White Blood Count 9.5 Red Blood Count 3.83 L Hemoglobin 11.6 L Hematocrit 35.2 L Mean Corpuscular Volume 91.9 Mean Corpuscular Hemoglobin 30.3 Mean Corpuscular Hemoglobin Concent 33.0 Red Cell Distribution Width 13.9 Platelet Count 236 Mean Platelet Volume 13.3 H Neutrophils % 70.4 Lymphocytes % 18.1 Monocytes % 7.7 Eosinophils % 2.2 Basophils % 0.5 Nucleated Red Blood Cells % 0.0 Neutrophils # 6.7 Lymphocytes # 1.7 Monocytes # 0.7 Eosinophils # 0.2 Basophils # 0.1 Nucleated Red Blood Cells # 0.0 Sodium Level 139 Potassium Level 4.1 Chloride Level 109 Carbon Dioxide Level 25 Anion Gap 9 Blood Urea Nitrogen 21 H Creatinine 0.59 Glucose Level 166 Calcium Level 9.2 Test 05/03/17 11:19 Bedside Glucose 161 Assessment/Plan Additional Assessment/Plan IMP: 1. s/p Hypoxemic respiratory insufficiency 2. Aspiration pneumonitis. 3. History of cerebrovascular accident with dysphagia. 4. Remote history of breast cancer. RECS 1. Abx per ID 2. Pulmonary toilet. 3. Aspiration precautions GOOD DANIEL MD May 03, 2017 16:46
--- NOTE | 2017-05-07 09:13 | RADRPT ---
Vent Rate: 97 bpm RR Interval: 0 msec [place] Interval: 120 msec QRS Duration: 76 msec QT Interval: 356 msec QTC Interval: 452 msec P-R-T [place]: 24 - -26 - 81 degrees Normal sinus rhythm Possible Left atrial enlargement Nonspecific ST and T wave abnormality Abnormal ECG Electronically Signed By: Madi Davila [id number]
== END 2017-05-03 16:10 | DRG 871 ==
LOC: E/R 12:06 → TEL 13:31 → EDBD 13:31
PROVIDERS: ADMIT Internal Medicine; ATTEND Internal Medicine
DX: A41.9 Sepsis, unspecified organism (principal); J96.00 Acute respiratory failure, unspecified whether with hypoxia or hypercapnia; J69.0 Pneumonitis due to inhalation of food and vomit; E43 Unspecified severe protein-calorie malnutrition; N17.9 Acute kidney failure, unspecified; R13.10 Dysphagia, unspecified; E83.51 Hypocalcemia; E87.0 Hyperosmolality and hypernatremia; N39.0 Urinary tract infection, site not specified; I69.951 Hemiplegia and hemiparesis following unspecified cerebrovascular disease affecting right dominant side; I10 Essential (primary) hypertension; Z66 Do not resuscitate; Z85.3 Personal history of malignant neoplasm of breast; R65.20 Severe sepsis without septic shock; E11.65 Type 2 diabetes mellitus with hyperglycemia; Z68.25 Body mass index [BMI] 25.0-25.9, adult
CPT/HCPCS: 36415; 36600; 71010; 80048; 80053; 80061; 80202; 81001; 81003; 82330; 82550; 82553; 82803; 82962; 83036; 83605; 83735; 84100; 84439; 84443; 84484; 85025; 85610; 85730; 87040; 87081; 87086; 92610; 93005; 94640; 96372; 96374; 96375; 97165; J0360; J1644; J1815; J2060; J2185; J2543; J3370; J3480; J7030; J7040; J7070